=== PATIENT | male | born 1945 | race Caucasian/White ===

== ENCOUNTER 2022-11-04 11:45 | Inpatient (IN) ==
[2022-11-04] MEDS ORDERED: SODIUM CHLORIDE 0.9% 1000ML 1,000 ML IV ONE (12:17)
[2022-11-04 12:48] LABS: iSTAT Creatinine 4.6 mg/dl (0.6-1.3); iSTAT Hemoglobin 15.3 g/dl (14.0-18.0); iSTAT Ionized Calcium 0.95 mmol/l (1.12-1.32); iSTAT Potassium 5.3 mmol/L (3.3-5.0)
[2022-11-04 13:01] LABS: Hematocrit (blood only) 38.9 % (42.0-52.0); Hemoglobin 13.4 g/dl (14.0-18.0); Mean Corpuscular Hemoglobin 27.7 pg (25.0-34.0); Mean Corpuscular Hgb Conc 34.4 g/dL (32.0-36.0); Mean Corpuscular Volume 80.4 fL (80.0-100.0); Mean Platelet Volume 13.2 fL (9.4-12.4); Nucleated RBC # (auto) 0.02 K/uL (0-0.12); Nucleated RBC % (auto) 0.1 %; Platelet Count 211 K/uL (130-400); RDW Coefficient of Variation 24.5 % (11.5-14.5); RDW Standard Deviation 66.6 fL (36.4-46.3); Red Blood Count 4.84 M/uL (4.70-6.10)
--- NOTE | 2022-11-04 13:08 | XRay Report ---
XR chest 1V portable CLINICAL HISTORY: Chest pain, nonspecific TECHNIQUE: Single frontal radiograph of the chest was obtained. Comparison: Comparison is made to CT abdomen pelvis 11/04/2022 FINDINGS: Median sternotomy wires are unchanged. Calcified aortic knob is seen. Right hilar density is seen. Pr ominence of the pulmonary vasculature is noted. Small bilateral pleural effusions are seen. IMPRESSION: 1. Right hilar density may represent mediastinal lymph nodes or airspace opacity. 2. Mild pulmonary edema. 3. Small bilateral pleural effusions. ACT 112: Negative or not required by law. Electronically signed by: Reid Cadena M.D. 11/04/2022 1:07 PM
--- NOTE | 2022-11-04 13:11 | Emergency Department Note ---
Impression & Plan Acute renal failure, Hypoalbuminemia, Hypotension, Complicated urinary tract infection, Elevated troponin level, Liver mass, Suspected malignant neoplasm ED Provider Note NAME: SEEMA CLINE AGE: 77 SEX: M ARRIVES VIA: Walk-In INFORMANT: Patient ED PROVIDER(S): Javi Beckford MD CHIEF COMPLAINT: Weakness, referred PLAN: Disposition: Admit MEDICAL DECISION MAKING: The patient is a pleasant 77-year-old gentleman with a past medical history of CHF, hypertension, diabetes, CKD who presents to the emergency department via walk-in accompanied by his son referred by his PCP office for evaluation of generalized weakness with poor oral intake over the past week in the setting of being admitted to [facility] for 10 days and discharged on 10/17 following acute renal failure with creatinine worsening to 3 complicated by atrial fibrillation with RVR with 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 The patient's son describes that during his evaluation a kidney and liver lesion were seen and it was recommended that this be further evaluated by urology and that a biopsy be obtained. They report they were referred to [facility] urology who they saw on Tuesday they are not sure of the plan as they did not have records of the patient's hospitalization at the time. They also scheduled to see oncology but have yet to be seen. They report they wanted to come to [facility] this time because they are going to establish care and follow-up with urology and oncology. They deny any fevers, cough, congestion, chest pain or shortness of breath. The patient does have edema of his legs which the son reports is chronic and not worse and not better. They report that their understanding of the patient's hospitalization was that he was dehydrated and are unaware of any of the additional details. On arrival emergency department the patient is ill appearing, afebrile with heart rate in the 40s and blood pressure 70s/50s improving to the 90s-100s/50s-60s. The patient does exhibit third spacing with anasarca and 2+ pitting edema bilateral lower extremities. EKG demonstrates sinus bradycardia without high-grade block or overt ST elevation or depression. Chest x-ray with suggestion of pulmonary edema and bilateral pleural effusion better characterized on CT imaging. WBC 15.6K with neutrophil predominance without left shift. Hemoglobin and platelets within normal limits. Creatinine 1.4 in the setting of being on Xare lto. Chemistry with acute renal failure with creatinine of 4 and BUN of 140. BUNs/creatinine> 30 suggestive of prerenal etiology. Bicarbonate 20 with anion gap of 14. Initial lactic acid 3.1, with repeat following cautious IV fluid hydration improved to 2.8. Transaminitis is present with AST and ALT 208 and 80, respectively with alkaline phosphatase 359 and total bilirubin 5.6. Albumin is notably low at 2.3. Lipase is not elevated. High-sensitivity troponin initially 116, nonspecific with repeat downtrending to 100. Procalcitonin is elevated at 1.86. TSH elevated at 14 however free T4 within normal limits. UA is suspicious for infection with positive nitrites, and 1+ bacteria albeit with epithelial cells present. CT of the head negative for acute abnormality with note of cerebellar hypodensity likely reflecting known previous CVA. CT of the chest demonstrates moderate bilateral pleural effusions with associated atelectasis as well as a right 10mm cardiophrenic lymph node and 4 mm nodule in the right upper lung. CT of the abdomen pelvis demonstrates thickening of the cecum and ascending colon which is nonspecific. Moderate pleural effusions are additionally characterized and note is made of small amount of ascites and moderate body wall edema. 4.5 cm soft tissue mass/lymphadenopathy centered at the celiac axis in addition to associated retroperitoneal lymphadenopathy and 10 cm heterogenous mass within the left hepatic lobe that likely represents metastatic disease and is similar to comparison study from outside hospital on 10/14. Patient was treated with empiric cefepime given leukocytosis, procalcitonin elevation and suspicion for UTI. Intravascular depletion is suspected however IV fluid hydration was administered cautiously given the patient's acute renal failure and third spacing. Subsequently, blood pressure was stable with MAPS > 65 and patient m entating normally with urine output and Lamar catheter. Case was discussed with Dr. Larson, [facility] hospitalist, who evaluated the patient for admission. Further management per admitting team. Triage Nursing notes reviewed and agree them. Prior/outside medical records reviewed including KATHY Gonzalez discharge summary and PCP hospitalization follow-up visit. Vital Signs: reviewed Differential diagnosis: Infection, dehydration, metabolic abnormality, hypo/hyperglycemia, electrolyte disturbance, anemia, hypoxia, cardiac sources, intracerebral event, toxicologic, neurologic, as well as other pathologies. ER treatment provided: See below. Diagnostics interpreted by me: ECG: Sinus bradycardia, 47 bpm, no ectopy, no overt ST elevation or depression, QTc 523, QRS 92. Cardiac Monitoring: An order for continuous cardiac monitoring was placed and demonstrated Sinus bradycardia, 47 bpm, no ectopy. Laboratory studies: See below Imaging studies: See below Consultation(s): Case was discussed with Dr. Larson, [facility] hospitalist, who will evaluate the patient for admission. 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 The patient's son describes that during his evaluation a kidney and liver lesion were seen and it was recommended that this be further evaluated by urology and that a biopsy be obtained. They report they were referred to [facility] urology who they saw on Tuesday they are not sure of the plan as they did not have records of the patient's hospitalization at the time. They also scheduled to see oncology but have yet to be seen. They report they wanted to come to [facility] this time because they are going to establish care and follow-up with urology and oncology. They deny any fevers, cough, congestion, chest pain or shortness of breath. The patient does have edema of his legs which the son reports is chronic and not worse and not better. They report that their understanding of the patient's hospitalization was that he was dehydrated and are unaware of any of the additional details. ROS: See above HPI for pertinent positives & negatives. A total of 10 systems reviewed and were otherwise negative. VITALS:See Below PHYSICAL EXAMINATION: GENERAL: Awake, alert, ill-appearing, in no distress HENT: Normocephalic, atraumatic. Oropharynx with dry mucous membranes and otherwise unremarkable. EYES: Normal conjunctiva. Sclera non-icteric. NECK: Supple. No nuchal rigidity. FROM. No JVD. RESPIRATORY: Diminished at bilateral lung bases and otherwise clear to auscultation. CARDIAC: Bradycardic rate, normal rhythm. Extremities warm and well perfused. Pulses equal. ABDOMEN: Soft, non-distended. No tenderness to palpation. No rebound or guarding. No masses. RECTAL: Deferred. MUSCULOSKELETAL: Chest examination reveals no tenderness. The back is symmetrical on inspection without obvious abnormality. There is no CVA tenderness to palpation. No joint edema. LOWER EXTREMITIES: Calves are equal size bilaterally and non-tender. Anasarca and 2+ pitting edema bilateral lower extremities. NEURO: Normal sensorium. No sensory or motor deficits noted. SKIN: No rash or jaundice noted. ED COURSE: Critical Care: I have personally spent greater than 75 minutes of critical care time in the direct management of this patient. This includes bedside care, interpretation of diagnostic studies, and testing, discussion with consultants, patient, and family members, and other required patient management activities. This 75 minutes is in excess of all separately billable procedures. Javi Beckford MD Past Med/Surg History Medical History (Updated 11/04/22 @ 21:59 by Javi Beckford MD) Acute renal failure Afib Carpal tunnel syndrome Chronic back pain Diabetes Elevated liver enzymes Heart attack Heart failure High cholesterol Hypertension Hypothyroidism Liver lesion LORETO (obstructive sleep apnea) Pleural cavity effusion Renal mass of unknown nature Shock Surgical History Total knee replacement status Family History Other Heart disease Social History Smoking Status: Former smoker Second Hand Exposure: No; Do You Dip or Chew Tobacco: No; Hx Alcohol Use: No Hx Substance Use: No Preferred Language: Divehi Communication Ability: Effective Radiator Cleaner Required: No Beliefs That Will Affect Care: None marital status: Current Living Situation: Spouse current occupational status: retired Other Information That Helps Us Care for You: No Feels Safe at Home: Yes Safety Concerns: Feels Safe At This Time Assistive Devices: Cane, CPAP and Walker Allergies Allergies Allergy/AdvReac Type Severity Reaction Status Date / Time No Known Allergies Allergy Verified 11/01/22 14:16 Home Meds Home Medications Medication Instructions Recorded Confirmed amlodipine 10 mg tablet 10 mg PO DAILY 11/01/22 11/04/22 aspirin 81 mg tablet,delayed 81 mg PO DAILY 11/01/22 11/04/22 release (Adult Aspirin Regimen) furosemide 40 mg tablet 40 mg PO DAILY PRN swelling/wt gain 11/01/22 11/04/22 gabapentin 100 mg capsule 100 mg PO DAILY 11/01/22 11/04/22 insulin glargine 100 unit/mL (3 20 unit subcut QDB 11/01/22 11/04/22 mL) subcutaneous pen levothyroxine 25 mcg capsule 25 mcg PO DAILYBB 11/01/22 11/04/22 rivaroxaban 15 mg tablet (Xarelto) 15 mg PO QPM 11/01/22 11/04/22 tramadol 50 mg tablet 50 mg PO Q8 PRN arthritic pain 11/01/22 11/04/22 atorvastatin 40 mg tablet 40 mg PO HS 11/04/22 11/04/22 clonidine HCl 0.3 mg tablet 0.3 mg PO Q8 PRN SBP 160 & > 11/04/22 11/04/22 gabapentin 300 mg capsule 300 - 600 mg PO HS 11/04/22 11/04/22 glipizide 10 mg tablet 10 mg PO QID 11/04/22 11/04/22 insulin aspart U-100 100 unit/mL See Rx Instructions .Route .COMPLEX 11/04/22 11/04/22 (3 mL) subcutaneous pen (Novolog FlexPen U-100 Insulin aspart) losartan 100 mg tablet 100 mg PO DAILY 11/04/22 11/04/22 metoprolol tartrate 50 mg tablet 100 mg PO BID 11/04/22 11/04/22 Results & Data (ED) Vital Signs Vital Signs - 24 hr 11/04/22 11:53 11/04/22 12:36 11/04/22 15:11 Temperature 36.6 C Temperature Source Temporal Artery Scan Pulse Rate 47 L 45 L Pulse Rate [Right Finger] 45 L Pulse Rhythm [Right Finger] Regular Pulse Strength [Right Finger] Normal Respiratory Rate 18 18 Respiratory Effort / Characteristics Non-Labored Spontaneous Non-Labored Respiratory Depth Normal Normal Respiratory Pattern Regular Regular Blood Pressure 79/52 L Blood Pressure [Right Arm] 99/55 L Blood Pressure Mean 61 Blood Pressure Mean [Right Arm] 69 Blood Pressure Position [Right Arm] Lying Pulse Oximetry 98 95 Oxygen Delivery Method Room Air Nasal Cannula Oxygen Flow Rate 2 Sepsis Recent Fever Within 48 Hours No Sepsis New/Unexplained Change in Mental Status No Sepsis Action Taken by Nursing No Action Required 11/04/22 15:13 11/04/22 15:36 11/04/22 16:55 Temperature Temperature Source Pulse Rate 44 L Pulse Rate [Right Finger] 48 L 45 L Pulse Rhythm [Right Finger] Regular Regular Pulse Strength [Right Finger] Normal Normal Respiratory Rate 18 18 Respiratory Effort / Characteristics Non-Labored Non-Labored Respiratory Depth Normal Normal Respiratory Pattern Regular Regular Blood Pressure Blood Pressure [Right Arm] 95/55 L 89/48 L Blood Pressure Mean Blood Pressure Mean [Right Arm] 68 61 Blood Pressure Position [Right Arm] Lying Lying Pulse Oximetry 95 99 Oxygen Delivery Method Nasal Cannula Nasal Cannula Oxygen Flow Rate 2 2 Sepsis Recent Fever Within 48 Hours Sepsis New/Unexplained Change in Mental Status Sepsis Action Taken by Nursing 11/04/22 17:13 11/04/22 17:44 Temperature Temperature Source Pulse Rate Pulse Rate [Right Finger] 68 46 L Pulse Rhythm [Right Finger] Regular Regular Pulse Strength [Right Finger] Normal Normal Respiratory Rate 16 16 Respiratory Effort / Characteristics Non-Labored Non-Labored Respiratory Depth Normal Normal Respiratory Pattern Regular Regular Blood Pressure Blood Pressure [Right Arm] 94/50 L Blood Pressure Mean Blood Pressure Mean [Right Arm] 64 Blood Pressure Position [Right Arm] Lying Pulse Oximetry 98 97 Oxygen Delivery Method Room Air Nasal Cannula Oxygen Flow Rate 2 Sepsis Recent Fever Within 48 Hours Sepsis New/Unexplained Change in Mental Status Sepsis Action Taken by Nursing Laboratory Data Attestation: I reviewed the patient's lab results. 11/04/22 12:25 11/04/22 12:25 Lab Results 11/04/22 11/04/22 11/04/22 Range/Units 12:25 12:25 12:25 WBC 15.60 H (4.8-10.8) K/ul RBC 4.84 (4.70-6.10) M/uL Hgb 13.4 L (14.0-18.0) g/dl POC Hgb (14.0-18.0) g/dl Hct 38.9 L (42.0-52.0) % POC Hct (42-52) % MCV 80.4 (80.0-100.0) fL MCH 27.7 (25.0-34.0) pg MCHC 34.4 (32.0-36.0) g/dL RDW Std Deviation 66.6 H (36.4-46.3) fL RDW Coeff of Celina 24.5 H (11.5-14.5) % Plt Count 211 (130-400) K/uL MPV 13.2 H (9.4-12.4) fL Immature Gran % (Auto) 0.8 % Neut % (Auto) 68.4 % Lymph % (Auto) 13.2 % Sharp % (Auto) 12.1 % Eos % (Auto) 5.1 % Baso % (Auto) 0.4 % Neut # (Auto) 10.65 H (1.40-6.50) K/uL Lymph # (Auto) 2.06 (1.2-3.4) K/uL Sharp # (Auto) 1.89 H (0.11-0.59) K/uL Eos # (Auto) 0.80 H (0-0.50) K/uL Baso # (Auto) 0.07 (0-0.2) K/uL Immature Gran # (Auto) 0.13 (0.01-0.20) K/uL Absolute Nucleated RBC 0.02 (0-0.12) K/uL Nucleated RBC % (auto) 0.1 % Polychromasia 2+ Target Cells 1+ Tear Drop Cells 1+ PT (9.0-12.0) Seconds INR (0.9-1.1) APTT (21.0-31.0) Seconds PTT Ratio ABG pH (7.35-7.45) ABG pCO2 (35-46) mmHg ABG pO2 (80-95) mmHg ABG HCO3 (19-24) mmol/L ABG O2 Saturation (90-95) % ABG Base Excess (-9-1.8) mEq/L [place] Test (Pos) Oxygen Given POC Sodium (135-144) mmol/L Sodium 137 (136-145) mmol/L POC Potassium (3.3-5.0) mmol/L Potassium 5.3 H (3.5-5.1) mmol/L POC Chloride (101-112) mmol/L Chloride 103 (98-107) mmol/L Carbon Dioxide 20 L (21-32) mmol/L POC Total CO2 (24-31) mmol/L Anion Gap 14 H (3-11) POC Anion Gap (16-25) mmol/L POC BUN (7-18) mg/dl BUN 140 H (6-23) mg/dl Creatinine 4.07 H (0.6-1.4) mg/dl POC Creatinine (0.6-1.3) mg/dl Est Cr Clr Drug Dosing Not Reportable Est GFR ( Amer) 15.6 ml/min Est GFR (Non-Af Amer) 13.4 ml/min BUN/Creatinine Ratio 34.4 H (10-20) Glucose 94 (70-99(Fasting)) mg/dl POC Glucose (other) (70-99) mg/dl Lactate (0.4-2.0) mmol/L Calcium 8.3 L (8.6-10.3) mg/dl POC Ioniz Calcium Viky (1.12-1.32) mmol/l Phosphorus 7.2 H (2.5-4.9) mg/dl Magnesium 2.7 H (1.7-2.4) mg/dl Total Bilirubin 5.6 H (0.2-1.0) mg/dl Direct Bilirubin AST 208 H (13-39) U/L ALT 80 H (7-52) U/L Alkaline Phosphatase 359 H (34-104) U/L Troponin I High Sens 116.0 H* (0-20) pg/ml B-Natriuretic Peptide (0-100) pg/ml Total Protein 6.6 (6.0-8.3) gm/dl Albumin 2.3 L (3.4-5.0) gm/dl Globulin 4.3 H (2.5-4.0) gm/dl Albumin/Globulin Ratio 0.5 L (0.9-2) Lipase 9 L (11-82) U/L Procalcitonin (0-0.5) ng/ml TSH 14.014 H (0.300-4.500) uIu/ml Free T4 0.90 (0.61-1.60) ng/dl Urine Color Urine Appearance (Clear) Urine pH (4.5-7.5) Ur Specific [place] (1.000-1.030) Urine Protein (Negative) Urine Glucose (UA) (Negative) Urine Ketones (Negative) Urine Blood (Negative) Urine Nitrite (Negative) Urine Bilirubin (Negative) Urine Urobilinogen (Negative) Ur Leukocyte Esterase (Negative) Urine WBC (Auto) (0-5) /hpf Urine RBC (Auto) (0-4) /hpf U Hyaline Cast (Auto) (0-5) /lpf U Epithel Cells (Auto) (0-5) /lpf Urine Bacteria (Auto) (Negative) Ur Random Creatinine mg/dl Ur Random Sodium mmol/L Nasal Screen MRSA (PCR) (Negative) 11/04/22 11/04/22 11/04/22 Range/Units 12:25 12:25 12:25 WBC (4.8-10.8) K/ul RBC (4.70-6.10) M/uL Hgb (14.0-18.0) g/dl POC Hgb (14.0-18.0) g/dl Hct (42.0-52.0) % POC Hct (42-52) % MCV (80.0-100.0) fL MCH (25.0-34.0) pg MCHC (32.0-36.0) g/dL RDW Std Deviation (36.4-46.3) fL RDW Coeff of Celina (11.5-14.5) % Plt Count (130-400) K/uL MPV (9.4-12.4) fL Immature Gran % (Auto) % Neut % (Auto) % Lymph % (Auto) % Sharp % (Auto) % Eos % (Auto) % Baso % (Auto) % Neut # (Auto) (1.40-6.50) K/uL Lymph # (Auto) (1.2-3.4) K/uL Sharp # (Auto) (0.11-0.59) K/uL Eos # (Auto) (0-0.50) K/uL Baso # (Auto) (0-0.2) K/uL Immature Gran # (Auto) (0.01-0.20) K/uL Absolute Nucleated RBC (0-0.12) K/uL Nucleated RBC % (auto) % Polychromasia Target Cells Tear Drop Cells PT 15.4 H (9.0-12.0) Seconds INR 1.4 H (0.9-1.1) APTT 40.2 H* (21.0-31.0) Seconds PTT Ratio 1.4 ABG pH (7.35-7.45) ABG pCO2 (35-46) mmHg ABG pO2 (80-95) mmHg ABG HCO3 (19-24) mmol/L ABG O2 Saturation (90-95) % ABG Base Excess (-9-1.8) mEq/L [place] Test (Pos) Oxygen Given POC Sodium (135-144) mmol/L Sodium (136-145) mmol/L POC Potassium (3.3-5.0) mmol/L Potassium (3.5-5.1) mmol/L POC Chloride (101-112) mmol/L Chloride (98-107) mmol/L Carbon Dioxide (21-32) mmol/L POC Total CO2 (24-31) mmol/L Anion Gap (3-11) POC Anion Gap (16-25) mmol/L POC BUN (7-18) mg/dl BUN (6-23) mg/dl Creatinine (0.6-1.4) mg/dl POC Creatinine (0.6-1.3) mg/dl Est Cr Clr Drug Dosing Est GFR ( Amer) ml/min Est GFR (Non-Af Amer) ml/min BUN/Creatinine Ratio (10-20) Glucose (70-99(Fasting)) mg/dl POC Glucose (other) (70-99) mg/dl Lactate (0.4-2.0) mmol/L Calcium (8.6-10.3) mg/dl POC Ioniz Calcium Viky (1.12-1.32) mmol/l Phosphorus (2.5-4.9) mg/dl Magnesium (1.7-2.4) mg/dl Total Bilirubin (0.2-1.0) mg/dl Direct Bilirubin AST (13-39) U/L ALT (7-52) U/L Alkaline Phosphatase (34-104) U/L Troponin I High Sens (0-20) pg/ml B-Natriuretic Peptide (0-100) pg/ml Total Protein (6.0-8.3) gm/dl Albumin (3.4-5.0) gm/dl Globulin (2.5-4.0) gm/dl Albumin/Globulin Ratio (0.9-2) Lipase (11-82) U/L Procalcitonin 1.86 H (0-0.5) ng/ml TSH (0.300-4.500) uIu/ml Free T4 (0.61-1.60) ng/dl Urine Color Urine Appearance (Clear) Urine pH (4.5-7.5) Ur Specific [place] (1.000-1.030) Urine Protein (Negative) Urine Glucose (UA) (Negative) Urine Ketones (Negative) Urine Blood (Negative) Urine Nitrite (Negative) Urine Bilirubin (Negative) Urine Urobilinogen (Negative) Ur Leukocyte Esterase (Negative) Urine WBC (Auto) (0-5) /hpf Urine RBC (Auto) (0-4) /hpf U Hyaline Cast (Auto) (0-5) /lpf U Epithel Cells (Auto) (0-5) /lpf Urine Bacteria (Auto) (Negative) Ur Random Creatinine mg/dl Ur Random Sodium mmol/L Nasal Screen MRSA (PCR) (Negative) 11/04/22 11/04/22 11/04/22 Range/Units 12:35 13:11 13:53 WBC (4.8-10.8) K/ul RBC (4.70-6.10) M/uL Hgb (14.0-18.0) g/dl POC Hgb 15.3 (14.0-18.0) g/dl Hct (42.0-52.0) % POC Hct 45 (42-52) % MCV (80.0-100.0) fL MCH (25.0-34.0) pg MCHC (32.0-36.0) g/dL RDW Std Deviation (36.4-46.3) fL RDW Coeff of Celina (11.5-14.5) % Plt Count (130-400) K/uL MPV (9.4-12.4) fL Immature Gran % (Auto) % Neut % (Auto) % Lymph % (Auto) % Sharp % (Auto) % Eos % (Auto) % Baso % (Auto) % Neut # (Auto) (1.40-6.50) K/uL Lymph # (Auto) (1.2-3.4) K/uL Sharp # (Auto) (0.11-0.59) K/uL Eos # (Auto) (0-0.50) K/uL Baso # (Auto) (0-0.2) K/uL Immature Gran # (Auto) (0.01-0.20) K/uL Absolute Nucleated RBC (0-0.12) K/uL Nucleated RBC % (auto) % Polychromasia Target Cells Tear Drop Cells PT (9.0-12.0) Seconds INR (0.9-1.1) APTT (21.0-31.0) Seconds PTT Ratio ABG pH (7.35-7.45) ABG pCO2 (35-46) mmHg ABG pO2 (80-95) mmHg ABG HCO3 (19-24) mmol/L ABG O2 Saturation (90-95) % ABG Base Excess (-9-1.8) mEq/L [place] Test (Pos) Oxygen Given POC Sodium 138 (135-144) mmol/L Sodium (136-145) mmol/L POC Potassium 5.3 H (3.3-5.0) mmol/L Potassium (3.5-5.1) mmol/L POC Chloride 108 (101-112) mmol/L Chloride (98-107) mmol/L Carbon Dioxide (21-32) mmol/L POC Total CO2 19 L (24-31) mmol/L Anion Gap (3-11) POC Anion Gap 18.0 (16-25) mmol/L POC BUN 117 H* (7-18) mg/dl BUN (6-23) mg/dl Creatinine (0.6-1.4) mg/dl POC Creatinine 4.6 H* (0.6-1.3) mg/dl Est Cr Clr Drug Dosing Est GFR ( Amer) ml/min Est GFR (Non-Af Amer) ml/min BUN/Creatinine Ratio (10-20) Glucose (70-99(Fasting)) mg/dl POC Glucose (other) 96 (70-99) mg/dl Lactate (0.4-2.0) mmol/L Calcium (8.6-10.3) mg/dl POC Ioniz Calcium Viky 0.95 L (1.12-1.32) mmol/l Phosphorus (2.5-4.9) mg/dl Magnesium (1.7-2.4) mg/dl Total Bilirubin (0.2-1.0) mg/dl Direct Bilirubin AST (13-39) U/L ALT (7-52) U/L Alkaline Phosphatase (34-104) U/L Troponin I High Sens (0-20) pg/ml B-Natriuretic Peptide (0-100) pg/ml Total Protein (6.0-8.3) gm/dl Albumin (3.4-5.0) gm/dl Globulin (2.5-4.0) gm/dl Albumin/Globulin Ratio (0.9-2) Lipase (11-82) U/L Procalcitonin (0-0.5) ng/ml TSH (0.300-4.500) uIu/ml Free T4 (0.61-1.60) ng/dl Urine Color Dark Yellow Urine Appearance Clear (Clear) Urine pH 5.0 (4.5-7.5) Ur Specific [place] 1.016 (1.000-1.030) Urine Protein Trace H (Negative) Urine Glucose (UA) Negative (Negative) Urine Ketones Negative (Negative) Urine Blood 1+ H (Negative) Urine Nitrite Positive A (Negative) Urine Bilirubin 1+ H (Negative) Urine Urobilinogen Negative (Negative) Ur Leukocyte Esterase Trace H (Negative) Urine WBC (Auto) 1-5 (0-5) /hpf Urine RBC (Auto) 10-30 H (0-4) /hpf U Hyaline Cast (Auto) 1-5 (0-5) /lpf U Epithel Cells (Auto) 20-30 H (0-5) /lpf Urine Bacteria (Auto) 1+ H (Negative) Ur Random Creatinine 119.6 mg/dl Ur Random Sodium 14 mmol/L Nasal Screen MRSA (PCR) (Negative) 11/04/22 11/04/22 11/04/22 Range/Units 14:19 14:19 15:23 WBC (4.8-10.8) K/ul RBC (4.70-6.10) M/uL Hgb (14.0-18.0) g/dl POC Hgb (14.0-18.0) g/dl Hct (42.0-52.0) % POC Hct (42-52) % MCV (80.0-100.0) fL MCH (25.0-34.0) pg MCHC (32.0-36.0) g/dL RDW Std Deviation (36.4-46.3) fL RDW Coeff of Celina (11.5-14.5) % Plt Count (130-400) K/uL MPV (9.4-12.4) fL Immature Gran % (Auto) % Neut % (Auto) % Lymph % (Auto) % Sharp % (Auto) % Eos % (Auto) % Baso % (Auto) % Neut # (Auto) (1.40-6.50) K/uL Lymph # (Auto) (1.2-3.4) K/uL Sharp # (Auto) (0.11-0.59) K/uL Eos # (Auto) (0-0.50) K/uL Baso # (Auto) (0-0.2) K/uL Immature Gran # (Auto) (0.01-0.20) K/uL Absolute Nucleated RBC (0-0.12) K/uL Nucleated RBC % (auto) % Polychromasia Target Cells Tear Drop Cells PT (9.0-12.0) Seconds INR (0.9-1.1) APTT (21.0-31.0) Seconds PTT Ratio ABG pH (7.35-7.45) ABG pCO2 (35-46) mmHg ABG pO2 (80-95) mmHg ABG HCO3 (19-24) mmol/L ABG O2 Saturation (90-95) % ABG Base Excess (-9-1.8) mEq/L [place] Test (Pos) Oxygen Given POC Sodium (135-144) mmol/L Sodium (136-145) mmol/L POC Potassium (3.3-5.0) mmol/L Potassium (3.5-5.1) mmol/L POC Chloride (101-112) mmol/L Chloride (98-107) mmol/L Carbon Dioxide (21-32) mmol/L POC Total CO2 (24-31) mmol/L Anion Gap (3-11) POC Anion Gap (16-25) mmol/L POC BUN (7-18) mg/dl BUN (6-23) mg/dl Creatinine (0.6-1.4) mg/dl POC Creatinine (0.6-1.3) mg/dl Est Cr Clr Drug Dosing Est GFR ( Amer) ml/min Est GFR (Non-Af Amer) ml/min BUN/Creatinine Ratio (10-20) Glucose (70-99(Fasting)) mg/dl POC Glucose (other) (70-99) mg/dl Lactate 3.1 H* (0.4-2.0) mmol/L Calcium (8.6-10.3) mg/dl POC Ioniz Calcium Viky (1.12-1.32) mmol/l Phosphorus (2.5-4.9) mg/dl Magnesium (1.7-2.4) mg/dl Total Bilirubin (0.2-1.0) mg/dl Direct Bilirubin Cancelled AST (13-39) U/L ALT (7-52) U/L Alkaline Phosphatase (34-104) U/L Troponin I High Sens (0-20) pg/ml B-Natriuretic Peptide 694 H (0-100) pg/ml Total Protein (6.0-8.3) gm/dl Albumin (3.4-5.0) gm/dl Globulin (2.5-4.0) gm/dl Albumin/Globulin Ratio (0.9-2) Lipase (11-82) U/L Procalcitonin (0-0.5) ng/ml TSH (0.300-4.500) uIu/ml Free T4 (0.61-1.60) ng/dl Urine Color Urine Appearance (Clear) Urine pH (4.5-7.5) Ur Specific [place] (1.000-1.030) Urine Protein (Negative) Urine Glucose (UA) (Negative) Urine Ketones (Negative) Urine Blood (Negative) Urine Nitrite (Negative) Urine Bilirubin (Negative) Urine Urobilinogen (Negative) Ur Leukocyte Esterase (Negative) Urine WBC (Auto) (0-5) /hpf Urine RBC (Auto) (0-4) /hpf U Hyaline Cast (Auto) (0-5) /lpf U Epithel Cells (Auto) (0-5) /lpf Urine Bacteria (Auto) (Negative) Ur Random Creatinine mg/dl Ur Random Sodium mmol/L Nasal Screen MRSA (PCR) (Negative) 11/04/22 11/04/22 11/04/22 Range/Units 15:23 16:30 16:30 WBC (4.8-10.8) K/ul RBC (4.70-6.10) M/uL Hgb (14.0-18.0) g/dl POC Hgb (14.0-18.0) g/dl Hct (42.0-52.0) % POC Hct (42-52) % MCV (80.0-100.0) fL MCH (25.0-34.0) pg MCHC (32.0-36.0) g/dL RDW Std Deviation (36.4-46.3) fL RDW Coeff of Celina (11.5-14.5) % Plt Count (130-400) K/uL MPV (9.4-12.4) fL Immature Gran % (Auto) % Neut % (Auto) % Lymph % (Auto) % Sharp % (Auto) % Eos % (Auto) % Baso % (Auto) % Neut # (Auto) (1.40-6.50) K/uL Lymph # (Auto) (1.2-3.4) K/uL Sharp # (Auto) (0.11-0.59) K/uL Eos # (Auto) (0-0.50) K/uL Baso # (Auto) (0-0.2) K/uL Immature Gran # (Auto) (0.01-0.20) K/uL Absolute Nucleated RBC (0-0.12) K/uL Nucleated RBC % (auto) % Polychromasia Target Cells Tear Drop Cells PT (9.0-12.0) Seconds INR (0.9-1.1) APTT (21.0-31.0) Seconds PTT Ratio ABG pH (7.35-7.45) ABG pCO2 (35-46) mmHg ABG pO2 (80-95) mmHg ABG HCO3 (19-24) mmol/L ABG O2 Saturation (90-95) % ABG Base Excess (-9-1.8) mEq/L [place] Test (Pos) Oxygen Given POC Sodium (135-144) mmol/L Sodium (136-145) mmol/L POC Potassium (3.3-5.0) mmol/L Potassium (3.5-5.1) mmol/L POC Chloride (101-112) mmol/L Chloride (98-107) mmol/L Carbon Dioxide (21-32) mmol/L POC Total CO2 (24-31) mmol/L Anion Gap (3-11) POC Anion Gap (16-25) mmol/L POC BUN (7-18) mg/dl BUN (6-23) mg/dl Creatinine (0.6-1.4) mg/dl POC Creatinine (0.6-1.3) mg/dl Est Cr Clr Drug Dosing Est GFR ( Amer) ml/min Est GFR (Non-Af Amer) ml/min BUN/Creatinine Ratio (10-20) Glucose (70-99(Fasting)) mg/dl POC Glucose (other) (70-99) mg/dl Lactate 2.8 H* (0.4-2.0) mmol/L Calcium (8.6-10.3) mg/dl POC Ioniz Calcium Viky (1.12-1.32) mmol/l Phosphorus (2.5-4.9) mg/dl Magnesium (1.7-2.4) mg/dl Total Bilirubin (0.2-1.0) mg/dl Direct Bilirubin TNP AST (13-39) U/L ALT (7-52) U/L Alkaline Phosphatase (34-104) U/L Troponin I High Sens 102.8 H* (0-20) pg/ml B-Natriuretic Peptide (0-100) pg/ml Total Protein (6.0-8.3) gm/dl Albumin (3.4-5.0) gm/dl Globulin (2.5-4.0) gm/dl Albumin/Globulin Ratio (0.9-2) Lipase (11-82) U/L Procalcitonin (0-0.5) ng/ml TSH (0.300-4.500) uIu/ml Free T4 (0.61-1.60) ng/dl Urine Color Urine Appearance (Clear) Urine pH (4.5-7.5) Ur Specific [place] (1.000-1.030) Urine Protein (Negative) Urine Glucose (UA) (Negative) Urine Ketones (Negative) Urine Blood (Negative) Urine Nitrite (Negative) Urine Bilirubin (Negative) Urine Urobilinogen (Negative) Ur Leukocyte Esterase (Negative) Urine WBC (Auto) (0-5) /hpf Urine RBC (Auto) (0-4) /hpf U Hyaline Cast (Auto) (0-5) /lpf U Epithel Cells (Auto) (0-5) /lpf Urine Bacteria (Auto) (Negative) Ur Random Creatinine mg/dl Ur Random Sodium mmol/L Nasal Screen MRSA (PCR) Negative (Negative) 11/04/22 11/04/22 Range/Units 17:05 17:43 WBC (4.8-10.8) K/ul RBC (4.70-6.10) M/uL Hgb (14.0-18.0) g/dl POC Hgb (14.0-18.0) g/dl Hct (42.0-52.0) % POC Hct (42-52) % MCV (80.0-100.0) fL MCH (25.0-34.0) pg MCHC (32.0-36.0) g/dL RDW Std Deviation (36.4-46.3) fL RDW Coeff of Celina (11.5-14.5) % Plt Count (130-400) K/uL MPV (9.4-12.4) fL Immature Gran % (Auto) % Neut % (Auto) % Lymph % (Auto) % Sharp % (Auto) % Eos % (Auto) % Baso % (Auto) % Neut # (Auto) (1.40-6.50) K/uL Lymph # (Auto) (1.2-3.4) K/uL Sharp # (Auto) (0.11-0.59) K/uL Eos # (Auto) (0-0.50) K/uL Baso # (Auto) (0-0.2) K/uL Immature Gran # (Auto) (0.01-0.20) K/uL Absolute Nucleated RBC (0-0.12) K/uL Nucleated RBC % (auto) % Polychromasia Target Cells Tear Drop Cells PT (9.0-12.0) Seconds INR (0.9-1.1) APTT (21.0-31.0) Seconds PTT Ratio ABG pH 7.29 L (7.35-7.45) ABG pCO2 34 L (35-46) mmHg ABG pO2 125 H (80-95) mmHg ABG HCO3 16 L (19-24) mmol/L ABG O2 Saturation 99.9 H (90-95) % ABG Base Excess -9.3 L (-9-1.8) mEq/L [place] Test Pos (Pos) Oxygen Given 2 POC Sodium (135-144) mmol/L Sodium (136-145) mmol/L POC Potassium (3.3-5.0) mmol/L Potassium (3.5-5.1) mmol/L POC Chloride (101-112) mmol/L Chloride (98-107) mmol/L Carbon Dioxide (21-32) mmol/L POC Total CO2 (24-31) mmol/L Anion Gap (3-11) POC Anion Gap (16-25) mmol/L POC BUN (7-18) mg/dl BUN (6-23) mg/dl Creatinine (0.6-1.4) mg/dl POC Creatinine (0.6-1.3) mg/dl Est Cr Clr Drug Dosing Est GFR ( Amer) ml/min Est GFR (Non-Af Amer) ml/min BUN/Creatinine Ratio (10-20) Glucose (70-99(Fasting)) mg/dl POC Glucose (other) (70-99) mg/dl Lactate (0.4-2.0) mmol/L Calcium (8.6-10.3) mg/dl POC Ioniz Calcium Viky (1.12-1.32) mmol/l Phosphorus (2.5-4.9) mg/dl Magnesium (1.7-2.4) mg/dl Total Bilirubin (0.2-1.0) mg/dl Direct Bilirubin 2.9 H AST (13-39) U/L ALT (7-52) U/L Alkaline Phosphatase (34-104) U/L Troponin I High Sens (0-20) pg/ml B-Natriuretic Peptide (0-100) pg/ml Total Protein (6.0-8.3) gm/dl Albumin (3.4-5.0) gm/dl Globulin (2.5-4.0) gm/dl Albumin/Globulin Ratio (0.9-2) Lipase (11-82) U/L Procalcitonin (0-0.5) ng/ml TSH (0.300-4.500) uIu/ml Free T4 (0.61-1.60) ng/dl Urine Color Urine Appearance (Clear) Urine pH (4.5-7.5) Ur Specific [place] (1.000-1.030) Urine Protein (Negative) Urine Glucose (UA) (Negative) Urine Ketones (Negative) Urine Blood (Negative) Urine Nitrite (Negative) Urine Bilirubin (Negative) Urine Urobilinogen (Negative) Ur Leukocyte Esterase (Negative) Urine WBC (Auto) (0-5) /hpf Urine RBC (Auto) (0-4) /hpf U Hyaline Cast (Auto) (0-5) /lpf U Epithel Cells (Auto) (0-5) /lpf Urine Bacteria (Auto) (Negative) Ur Random Creatinine mg/dl Ur Random Sodium mmol/L Nasal Screen MRSA (PCR) (Negative) Administered Medications Sodium Bicarbonate 150 meq/ (Sterile Water) 1,150 mls @ 80 mls/hr IV .[id number] ONE Stop: 11/05/22 08:52 Last Admin: 11/04/22 19:27 Dose: 80 mls/hr Documented By: CIERRA Heparin Sodium/Dextrose (Heparin Sodium/Dextrose) 25,000 units in 500 mls @ 29 mls/hr IV .[id number] SUSAN; Protocol Stop: 12/04/22 18:29 Last Admin: 11/04/22 20:55 Dose: 1,450 units/hr, 29 mls/hr Documented By: MANNY Co-signed By: AMB Discontinued Medications Heparin Sodium/Dextrose (Heparin Iv Adult Wt-Based Standard *No* Bolus Protocol) 1 each IV ONE STA; Protocol Stop: 11/04/22 18:04 Last Admin: 11/04/22 18:36 Dose: Not Given Documented By: IGNACIA Sodium Chloride (Nss 1000ml) 1,000 mls @ 999 mls/hr IV .[id number] ONE Stop: 11/04/22 13:17 Last Infusion: 11/04/22 20:22 Dose: 0 mls/hr Documented By: Infusion: 11/04/22 13:48 Dose: 999 mls/hr Documented By: Infusion: 11/04/22 13:18 Dose: 999 mls/hr Documented By: Infusion: 11/04/22 13:13 Dose: 999 mls/hr Documented By: Admin: 11/04/22 12:50 Dose: 999 mls/hr Documented By: KERI Cefepime HCl (Maxipime) 2,000 mg in 20 mls @ 5 mls/min IV NOW STA; Protocol Stop: 11/04/22 14:02 Last Admin: 11/04/22 14:43 Dose: 5 mls/min Documented By: IGNACIA Albumin Human (Albumin 25%) 25 gm in 100 mls @ 50 mls/hr IV Q2H SUSAN Stop: 11/04/22 18:59 Last Infusion: 11/04/22 19:42 Dose: 0 mls/hr Documented By: Admin: 11/04/22 17:03 Dose: 50 mls/hr Documented By: Infusion: 11/04/22 17:03 Dose: 50 mls/hr Documented By: Admin: 11/04/22 15:27 Dose: 50 mls/hr Documented By: IGNACIA Parenteral Electrolytes (Plasma-Lyte A Ph 7.4) 1,000 mls @ 250 mls/hr IV .Q4H SUSAN Stop: 11/04/22 19:29 Last Admin: 11/04/22 19:41 Dose: Not Given Documented By: CIERRA Calcium Gluconate 2,000 mg/ (Dextrose) 70 mls @ 240 mls/hr IV TODAY@2014 ONE Stop: 11/04/22 20:32 Last Admin: 11/04/22 20:22 Dose: 240 mls/hr Documented By: [facility] Imaging Data Radiologist's Impression: Chest X-Ray 11/04/22 12:17 XR chest 1V portable CLINICAL HISTORY: Chest pain, nonspecific TECHNIQUE: Single frontal radiograph of the chest was obtained. Comparison: Comparison is made to CT abdomen pelvis 11/04/2022 FINDINGS: Median sternotomy wires are unchanged. Calcified aortic knob is seen. Right hilar density is seen. Prominence of the pulmonary vasculature is noted. Small bilateral pleural effusions are seen. IMPRESSION: 1. Right hilar density may represent mediastinal lymph nodes or airspace opacity. 2. Mild pulmonary edema. 3. Small bilateral pleural effusions. ACT 112: Negative or not required by law. Electronically signed by: Reid Cadena M.D. 11/04/2022 1:07 PM Abdomen/Pelvis CT 11/04/22 12:[address] WITHOUT CONTRAST CT DOSE: 2771.38 mGy.cm HISTORY: Shortness of breath, hypotensive, ?liver mets, ARF TECHNIQUE: Multiaxial CT images of the abdomen and pelvis were performed without contrast. A dose lowering technique was utilized adhering to the principles of ALARA. COMPARISON STUDY: Outside hospital abdomen and pelvis CT 10/14/2022. FINDINGS: Moderate bilateral pleural effusions and bibasilar densities persist. This is better appreciated on the same day chest CT. No pneumoperitoneum. No pneumatosis. There are poststernotomy changes. No acute fractures identified. The heart is mildly enlarged. There is a 9 mm anterior pericardial lymph node again noted. Small fat-containing umbilical hernia. There are small fat-containing bilateral inguinal hernias. Moderate body wall edema has progressed in the interval. Heterogeneity within the majority the left hepatic lobe measuring up to 10 cm in size. This is similar to the prior study and is consistent with a hepatic mass/metastatic disease. The unenhanced spleen and adrenal glands are unremarkable. No hydronephrosis. Stable left renal cyst. Irregular soft tissue mass/lymphadenopathy centered at the celiac axis again noted. This measures approximately 4.5 cm. Atrophic pancreas with multiple pancreatic calcifications again noted. Retroperitoneal lymphadenopathy persists. Calcified plaque in the normal caliber abdominal aorta. Mild mesenteric lymphadenopathy is also noted. Small amount of ascites, unchanged. The bladder is decompressed by a Lamar catheter. Thickening within the cecum and ascending colon. This is nonspecific but could be due to a portal colopathy or nonspecific colitis. No dilated loops of bowel to suggest an obstruction. Subtle nodular contour to the liver suggestive of cirrhosis. IMPRESSION: 1. Thickening within the cecum and ascending colon. This could be due to a portal colopathy or nonspecific colitis. 2. No evidence for a bowel obstruction. 3. Moderate pleural effusions, small amount of ascites,, and moderate body wall edema again noted. 4. Ill-defined 4.5 cm soft tissue mass/lymphadenopathy centered at the celiac axis. There is associated retroperitoneal lymphadenopathy and a 10 cm heterogeneous mass within the left hepatic lobe. This likely represents metastatic disease. This is similar to the prior study. 5. Additional findings as described above. ACT 112: Negative or not required by law. Electronically signed by: Tk Brian M.D. 11/04/2022 2:[address] 11/04/22 12:53 CT chest diagnostic wo con CLINICAL HISTORY: sob, hypotensive, ?liver mets, ARF TECHNIQUE: Multidetector row helical CT of the chest was performed. Coronal and sagittal reformations were obtained. Automated dose lowering techniques and/or adjustment according to patient size were utilized for this exam. Comparison: None available at the time of this dictation. FINDINGS: Lungs and pleura: Moderate bilateral pleural effusions are seen. There is a 4 mm nodule in the right upper lung. Atelectasis is noted. Heart and pericardium: Heart size is normal. No pericardial effusion. Vessels: The pulmonary trunk is enlarged measuring moderate atherosclerotic disease is seen. Mediastinum and len: 10 mm right cardiophrenic lymph node is seen. Chest wall and lower neck: Unremarkable. Abdomen: For findings below the diaphragm, please refer to CT of the abdomen dated the same. Bones: Degenerative changes in the thoracic spine. IMPRESSION: Moderate bilateral pleural effusions with associated atelectasis. There is a right cardiophrenic node as well as a 4 mm nodule in the right upper lung. ACT 112: Negative or not required by law. Electronically signed by: Reid Cadena M.D. 11/04/2022 2:[address] 11/04/22 12:54 CT head/brain wo con CLINICAL HISTORY: 77 years-old Male with ams. Acutely altered mental status TECHNIQUE: Multiple axial CT images of the head were obtained without contrast. A dose lowering technique was utilized adhering to the principles of ALARA. COMPARISON: None. FINDINGS: No acute intracranial hemorrhage, midline shift, intracranial mass, hydrocephalus, territorial ischemia or abnormal extra-axial collection. Involutional changes with white matter hypodensities suggestive of chronic microvascular ischemic disease. Indeterminate ill-defined 1.9 cm hypodense focus within the mid left cerebellum, image 6 series 2. The calvarium is intact. Small right parietal scalp contusion. The paranasal sinuses, mastoid air cells, and middle ear cavities are clear. IMPRESSION: 1. No acute intracranial hemorrhage, midline shift or acute territorial infarct. 2. Indeterminate 1.9 cm hypodense focus of the left cerebellum which may represent an age-indeterminate infarct. This could be correlated with follow-up MRI if there is further clinical concern. ACT 112: Negative or not required by law. The above report was generated using voice recognition software. It may contain grammatical, syntax or spelling errors. Electronically signed by: Rajesh Nascimento M.D. 11/04/2022 2:31 PM Discharge Plan Visit Data Chief Complaint: Weakness Stated Complaint: WEAKNESS, BACK PAIN ED Provider: Javi Beckford Discharge Problem: Acute renal failure, Hypoalbuminemia, Hypotension, Complicated urinary tract infection, Elevated troponin level, Liver mass, Suspected malignant neoplasm Patient Disposition: Admitted As Inpatient Discharge Instructions Interventions: ED Discharge Assessment Last Done: 11/04/22 19:54
[2022-11-04 13:20] LABS: INR 1.4 (0.9-1.1); Prothrombin Time 15.4 Seconds (9.0-12.0); Thyroid Stimulating Hormone 14.014 uIu/ml (0.300-4.500)
[2022-11-04 13:25] LABS: Basophils # (auto) 0.07 K/uL (0-0.2); Basophils % (auto) 0.4 %; Eosinophils % (auto) 5.1 %; Immature Granulocytes # (auto) 0.13 K/uL (0.01-0.20); Immature Granulocytes % (auto) 0.8 %; Lymphocytes # (auto) 2.06 K/uL (1.2-3.4); Lymphocytes % (auto) 13.2 %; Monocytes # (auto) 1.89 K/uL (0.11-0.59); Monocytes % (auto) 12.1 %; Neutrophils # (auto) 10.65 K/uL (1.40-6.50); Neutrophils % (auto) 68.4 %; Polychromasia 2+; Target Cells 1+; Tear Drop Cells 1+
[2022-11-04 13:27] LABS: Alanine Aminotransferase 80 U/L (7-52); Albumin Globulin Ratio 0.5 (0.9-2); Albumin Level 2.3 gm/dl (3.4-5.0); Alkaline Phosphatase 359 U/L (34-104); Anion Gap 14 (3-11); Aspartate Aminotransferase 208 U/L (13-39); BUN Creatinine Ratio 34.4 (10-20); Bilirubin,Total 5.6 mg/dl (0.2-1.0); Blood Urea Nitrogen 140 mg/dl (6-23); Calcium 8.3 mg/dl (8.6-10.3); Carbon Dioxide 20 mmol/L (21-32); Chloride 103 mmol/L (98-107); Est GFR (African American) 15.6 ml/min; Est GFR (Non-African American) 13.4 ml/min; Globulin 4.3 gm/dl (2.5-4.0); Glucose 94 mg/dl (70-99(Fasting)); Lipase 9 U/L (11-82); Magnesium 2.7 mg/dl (1.7-2.4); Phosphorus 7.2 mg/dl (2.5-4.9); Potassium 5.3 mmol/L (3.5-5.1); Sodium 137 mmol/L (136-145); Total Protein 6.6 gm/dl (6.0-8.3)
[2022-11-04 13:43] LABS: Appearance Urine Clear (Clear); Blood Urine 1+ (Negative); Color Urine Dark Yellow; Epithelial Cell Urine Auto 20-30 /lpf (0-5); Glucose Urine UA Negative (Negative); Ketones Urine Negative (Negative); Leukocyte Esterase Urine Trace (Negative); Nitrite Urine Positive (Negative); Protein Urine Trace (Negative); Specific Gravity Urine 1.016 (1.000-1.030); Urobilinogen Urine Negative (Negative)
[2022-11-04 13:44] LABS: Bilirubin Urine 1+ (Negative)
[2022-11-04 13:53] LABS: Bacteria Urine Automated 1+ (Negative)
[2022-11-04 13:56] LABS: T4 Free Thyroxine 0.9 ng/dl (0.61-1.60)
[2022-11-04] MEDS ORDERED: CEFEPIME 2,000 MG/20 ML VIAL IV STA (13:59)
--- NOTE | 2022-11-04 14:16 | CT Scan Report ---
ABDOMEN AND PELVIS CT WITHOUT CONTRAST CT DOSE: 2771.38 mGy.cm HISTORY: Shortness of breath, hypotensive, ?liver mets, ARF TECHNIQUE: Multiaxial CT images of the abdomen and pelvis were performed without contrast. A dose lo wering technique was utilized adhering to the principles of ALARA. COMPARISON STUDY: Outside hospital abdomen and pelvis CT 10/14/2022. FINDINGS: Moderate bilateral pleural effusions and bibasilar densities persist. This is better apprec iated on the same day chest CT. No pneumoperitoneum. No pneumatosis. There are poststernotomy changes . No acute fractures identified. The heart is mildly enlarged. There is a 9 mm anterior pericardial l ymph node again noted. Small fat-containing umbilical hernia. There are small fat-containing bilatera l inguinal hernias. Moderate body wall edema has progressed in the interval. Heterogeneity within the majority the left hepatic lobe measuring up to 10 cm in size. This is similar to the prior study and is consistent with a hepatic mass/metastatic disease. The unenhanced spleen and adrenal glands are u nremarkable. No hydronephrosis. Stable left renal cyst. Irregular soft tissue mass/lymphadenopathy ce ntered at the celiac axis again noted. This measures approximately 4.5 cm. Atrophic pancreas with mul tiple pancreatic calcifications again noted. Retroperitoneal lymphadenopathy persists. Calcified plaq ue in the normal caliber abdominal aorta. Mild mesenteric lymphadenopathy is also noted. Small amount of ascites, unchanged. The bladder is decompressed by a Lamar catheter. Thickening within the cecum and ascending colon. This is nonspecific but could be due to a portal colopathy or nonspecific coliti s. No dilated loops of bowel to suggest an obstruction. Subtle nodular contour to the liver suggestiv e of cirrhosis. IMPRESSION: 1. Thickening within the cecum and ascending colon. This could be due to a portal colopathy or nonspe cific colitis. 2. No evidence for a bowel obstruction. 3. Moderate pleural effusions, small amount of ascites,, and moderate body wall edema again noted. 4. Ill-defined 4.5 cm soft tissue mass/lymphadenopathy centered at the celiac axis. There is associat ed retroperitoneal lymphadenopathy and a 10 cm heterogeneous mass within the left hepatic lobe. This likely represents metastatic disease. This is similar to the prior study. 5. Additional findings as described above. ACT 112: Negative or not required by law. Electronically signed by: Tk Brian M.D. 11/04/2022 2:15 PM
--- NOTE | 2022-11-04 14:32 | CT Scan Report ---
CT head/brain wo con CLINICAL HISTORY: 77 years-old Male with ams. Acutely altered mental status TECHNIQUE: Multiple axial CT images of the head were obtained without contrast. A dose lowering tech nique was utilized adhering to the principles of ALARA. COMPARISON: None. FINDINGS: No acute intracranial hemorrhage, midline shift, intracranial mass, hydrocephalus, territorial ischem ia or abnormal extra-axial collection. Involutional changes with white matter hypodensities suggestiv e of chronic microvascular ischemic disease. Indeterminate ill-defined 1.9 cm hypodense focus within the mid left cerebellum, image 6 series 2. The calvarium is intact. Small right parietal scalp contusion. The paranasal sinuses, mastoid air bin ls, and middle ear cavities are clear. IMPRESSION: 1. No acute intracranial hemorrhage, midline shift or acute territorial infarct. 2. Indeterminate 1.9 cm hypodense focus of the left cerebellum which may represent an age-indetermina te infarct. This could be correlated with follow-up MRI if there is further clinical concern. ACT 112: Negative or not required by law. The above report was generated using voice recognition software. It may contain grammatical, syntax o r spelling errors. Electronically signed by: Rajesh Nascimento M.D. 11/04/2022 2:31 PM
--- NOTE | 2022-11-04 14:33 | CT Scan Report ---
CT chest diagnostic wo con CLINICAL HISTORY: sob, hypotensive, ?liver mets, ARF TECHNIQUE: Multidetector row helical CT of the chest was performed. Coronal and sagittal reformations were obtained. Automated dose lowering techniques and/or adjustment according to patient size were u tilized for this exam. Comparison: None available at the time of this dictation. FINDINGS: Lungs and pleura: Moderate bilateral pleural effusions are seen. There is a 4 mm nodule in the right upper lung. Atelectasis is noted. Heart and pericardium: Heart size is normal. No pericardial effusion. Vessels: The pulmonary trunk is enlarged measuring moderate atherosclerotic disease is seen. Mediastinum and len: 10 mm right cardiophrenic lymph node is seen. Chest wall and lower neck: Unremarkable. Abdomen: For findings below the diaphragm, please refer to CT of the abdomen dated the same. Bones: Degenerative changes in the thoracic spine. IMPRESSION: Moderate bilateral pleural effusions with associated atelectasis. There is a right cardiophrenic node as well as a 4 mm nodule in the right upper lung. ACT 112: Negative or not required by law. Electronically signed by: Reid Cadena M.D. 11/04/2022 2:32 PM
--- NOTE | 2022-11-04 15:05 | History & Physical Report ---
Date of Service November 04, 2022 Assessment & Plan (1) Weakness: Plan: Weakness. ,? Prerenal ARF +/- sepsis UA infected versus contaminated although no urinary symptoms fever/chills. Does have new leukocytosis Pro-Manish elevated Blood cultures pending, empiric cefepime continued. No history of MRSA, MRSA nares negative Received 1 L NSS at time of consultation, 30 cc/kg initial deferred due to history of CHF and renal failure with evidence of pulmonary edema and pleural effusions - Lactate 3.1 --> 2.8 - ABG pending, VBG trended - CT-H: 1. No acute intracranial hemorrhage, midline shift or acute territorial infarct. 2. Indeterminate 1.9 cm hypodense focus of the left cerebellum which may represent an age-indeterminate infarct. This could be correlated with follow-up MRI if there is further clinical concern. This is noted on prior CT-H from [facility], confirmed on 11/04 - CT-Chest: Moderate bilateral pleural effusions with associated atelectasis. There is a right cardiophrenic node as well as a 4 mm nodule in the right upper lung. - Ct-A/P: 1. Thickening within the cecum and ascending colon. This could be due to a portal colopathy or nonspecific colitis. 2. No evidence for a bowel obstruction. 3. Moderate pleural effusions, small amount of ascites, and moderate body wall edema again noted. 4. Ill-defined 4.5 cm soft tissue mass/lymphadenopathy centered at the celiac axis. There is associated retroperitoneal lymphadenopathy and a 10 cm heterogeneous mass within the left hepatic lobe. This likely represents metastatic disease. This is similar to the prior study. clinically volume overloaded but intravascularly depleted. Hypoalbuminemic, and is with suspected 10 cm metastatic liver lesion. No history of alcohol use or hepatitis. Soft pressures and 80 systolic have improved to 90s with fluids, unfortunately he also has an oxygen requirement and moderate suspect transudative effusions but in the context of metastatic cancer exudative malignant effusion cannot be ruled out. No obvious metastasis, nodule is noted on CT Albumin 50 g given while in ER, continue every 8 hours at this time. Nephrology following for assistance with fluid management, appreciate recommendations Transferred to ICU. Bicarb 80cc/hr pending. MAP currently ~75-80 on bedside assessment. Acute renal failure on CKD No in house prior records available, by report baseline creatinine is around 1.5. Was discharged from [facility] after 10-day admission for renal failure with peak creatinine of 3 Patient reports he did restart his Lasix and losartan following that discharge Somewhat poor historian, thinks he has been peeing relatedly little for the last 2 to 3 days Suspect prerenal with intravascular depletion. Prealbumin is pending Nephrology consulted. Albumin continued. Fluids as noted. Appreciate re commendations Suspected Metastatic - 10cm L hepatic lobe mass, likely metastatic CA 199: Normal CEA elevated at 12 suspicious for adenocarcinoma Last colonoscopy 5-6 years ago, no suspicious lesions at that time but was recommended 5-year follow-up IR consulted for liver biopsy, this is within their scope of practice here if/when patient is stable left do so. Currently precluded by level of illness and anticoagulation. Patient is with potential left atrial but not definitive atrial thrombus for which he is continued on heparin gtt. Aspirin temporarily held for potential biopsy/the History of Afib On Xarelto While at [facility] the end of September patient did have a MANI from which a atrial thrombus possible/not definitively excluded. TTE was with normal EF, pending transfer of MANI record however atrial thrombus concern from this was noted in progress note report. While patient may be pending a liver biopsy and would need coagulation held, in the setting of a possible active atrial thrombus risks of holding anticoagulation exceed the benefits. Cards consulted for?TTE to r/o before holding for biopsy. We will switch to heparin drip at this time. If patient improves and is stable enough to undergo a MANI would recommend this for exclusion of thrombus prior to holding anticoagulation for liver biopsy. EKGs with bradycardia as noted at time of admission, beta-luanne held. No history of symptomatic bradycardia CAD, s/p CABG High sensitive troponin 116 Reportedly with reduced ejection fraction,TTE 10/15/2022: EF 60-65% with normal wall motion EKG sinus bradycardia, QTc 523, no territorial ST segment changes. Anterior Q waves. Patient is with bradycardia inappropriate to his hypotension, suspect blunted chronotropic response due to beta-luanne. This is held. 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 DVT PPx: Anticoagulated CODE: DNR/DNI, OK with intubation for respiratory protection Diet: Renal, HH Dispo: ICU (2) Acute renal failure: (3) Hypoalbuminemia: (4) Elevated troponin level: (5) Hypertension: (6) Diabetes: (7) Heart failure: (8) Suspected malignant neoplasm: History of Present Illness Primary Care Provider: Trey Higgins Capp, Bill Rosas is a 77-year-old male with a past medical history of CHF with reported reduced ejection fraction although recent normal echo, hypertension, DM 2, CKD with recent admission in [facility] for renal failure requiring dialysis and subsequent return of creatinine to baseline of around 1.5 who read presents as a walk-in from the ER with general weakness, poor oral intake, lower extremity edema and fatigue following discharge from [facility] 10 days ago for renal failure with A-fib/RVR and atrial thrombus. Normal BP 'lower of late. Thats why he ended up at [facility] 75cc output in last 3-3.5 hours Denies history of bradycardia. Reports history of IA 7 years quad bipass in [facility]. No stents. Has peed a bit intermittently, not sure if its more, less, or about the same as normal. No fevers/chills. No burning with urination Pain in lower back which has been present for7 years unchanged 'straight down the middle.' No numbness or tingling in the arms or legs No bloody or black BMs Last colo 5 years ago, had to cancel was actually due to reschedule this year in [facility]. No fhx of colorectal cancer. 'No sign of cancer in anyone in the family as far as I know.' Denies OTC NSAID use, is on aspirin 81mg daily No fevers, chills. Did not take insulin this morning Took meds this morning including amlodipine and metoprolol. +swelling in the legs Furosemide held Swelling last 2 days is worse than normal Did start taking lasix once he returned home Medical History: Reviewed Medications: Reviewed Surgical History: Reviewed Family history: Reviewed Allergies: Reviewed Social History: Remote history of tobacco use 30 years, denies alochol. Code Status: DNR/DNI Outside Rec review: PCP note 10/25/2022 reviewed from [facility]. Of note: Eliquis 5 mg twice daily switch to Xarelto 15 mg twice daily Patient was on clonidine, glipizide, losartan and these were stopped Continued on Norvasc 10 mg, aspirin 81 mg, gabapentin 300 mg, NovoLog, Basaglar 20 units, Lopressor 100 mg, Lipitor 40 mg, metformin 5 mg, and Synthroid 25 mg At that patient patient wanted urgent referrals to GI for liver biopsy and colonoscopy, urology referral for kidney biopsy, and oncology referral to cancer follow-up. Also wanted a lift chair from [facility] for weakness Type II DM: Continued on Basaglar 20 units a.m., NovoLog sliding scale 1: 25 Hypothyroid: Synthroid 25 continued Hyperlipidemia, atorvastatin 40 mg continued Lasix 40-80 mg based on swelling continued, proBNP 8888 at that time Cirrhosis unspecified: AST 163/ALT 80. Pending GI follow-up AST greater than 2 times ALT,? Alcohol intake. Hep B/hep C pending. Ferritin 1164 at the time nephrology note 10/12/2022 for acute renal failure Suspected prerenal from volume depletion from poor oral intake and overdiuresis during hospitalization No evidence of obstructive uropathy at that time. Urine with 1+ protein with history of diabetes Renal function did improve with IV fluid hydration Lasix was recommended to be held at that time Losartan was held at that time Allergies Allergy/AdvReac Type Severity Reaction Status Date / Time No Known Allergies Allergy Verified 11/01/22 14:16 Home Medications Medication Instructions Recorded Confirmed Type amlodipine 10 mg tablet 10 mg PO DAILY 11/01/22 11/04/22 History aspirin 81 mg tablet,delayed 81 mg PO DAILY 11/01/22 11/04/22 History release (Adult Aspirin Regimen) furosemide 40 mg tablet 40 mg PO DAILY PRN swelling/wt gain 11/01/22 11/04/22 History gabapentin 100 mg capsule 100 mg PO DAILY 11/01/22 11/04/22 History insulin glargine 100 unit/mL (3 20 unit subcut QDB 11/01/22 11/04/22 History mL) subcutaneous pen levothyroxine 25 mcg capsule 25 mcg PO DAILYBB 11/01/22 11/04/22 History rivaroxaban 15 mg tablet (Xarelto) 15 mg PO QPM 11/01/22 11/04/22 History tramadol 50 mg tablet 50 mg PO Q8 PRN arthritic pain 11/01/22 11/04/22 History atorvastatin 40 mg tablet 40 mg PO HS 11/04/22 11/04/22 History clonidine HCl 0.3 mg tablet 0.3 mg PO Q8 PRN SBP 160 & > 11/04/22 11/04/22 History gabapentin 300 mg capsule 300 - 600 mg PO HS 11/04/22 11/04/22 History glipizide 10 mg tablet 10 mg PO QID 11/04/22 11/04/22 History insulin aspart U-100 100 unit/mL See Rx Instructions .Route .COMPLEX 11/04/22 11/04/22 History (3 mL) subcutaneous pen (Novolog FlexPen U-100 Insulin aspart) losartan 100 mg tablet 100 mg PO DAILY 11/04/22 11/04/22 History metoprolol tartrate 50 mg tablet 100 mg PO BID 11/04/22 11/04/22 History Past Med/Surg History Medical History Carpal tunnel syndrome Heart attack High cholesterol Surgical History Total knee replacement status Family History Other Heart disease Social History Smoking Status: Never smoker Hx Alcohol Use: No Preferred Language: Pashto marital status: current occupational status: retired Feels Safe at Home: Yes Review of Systems Review of Systems: All systems reviewed & are unremarkable except as noted in HPI & below Physical Exam Physical Exam: General: Appears fatigued. Answers questions appropriately. Alert and oriented x3 HEENT: Atraumatic, normocephalic. Pulm: Diminished in the bases symmetrical chest rise. No increased work of breathing. No respiratory distress. Cardiac: Regular,, -mrg. Radial pulses intact and symmetrical. Abdominal: Softly distended, nontender./. BS present. Ext: Pitting edema through the lower extremities bilaterally. Results & Data Results & Data Vital Signs (Past 12 Hours) Vital Signs Temp Pulse Resp BP Pulse Ox O2 Del Method 11/04/22 12:36 45 L 11/04/22 11:53 36.6 C 47 L 18 79/52 L 98 Room Air PG Care Time/CCT Total # of Minutes Spent Total Time Spent with Patient: Total time spent is greater than 50% in coordination of care (as documented) at patient's floor/unit and/or counseling patient: Coding Level of Care Code 99377 INT INP/OBS CARE 375MIN Diagnoses Weakness R53.1 Acute renal failure N17.9 Hypoalbuminemia E88.09 Elevated troponin level R77.8 Hypertension I10 Diabetes E11.9 Heart failure I50.9 Suspected malignant neoplasm R68.89
[2022-11-04] MEDS: ALBUMIN 25% 25 GM/100 ML VIAL IV SCH ×3 (15:27→22:13)
--- NOTE | 2022-11-04 15:55 | Electrocardiogram Report ---
Test Reason : Blood Pressure : / mmHG Vent. Rate : 047 BPM Atrial Rate : 047 BPM P-R Int : 202 ms QRS Dur : 092 ms QT Int : 592 ms P-R-T Axes : 022 024 138 degrees QTc Int : 523 ms Sinus bradycardia Low voltage QRS Poor R wave progression, consider anterior NM vs. lead placement vs. LVH Abnormal ECG No previous ECGs available Confirmed by Royer Reyes ([id number]) on 11/04/2022 3:54:49 PM Referred By: Confirmed By:Royer Reyes
--- NOTE | 2022-11-04 16:08 | XCELERA ---
[id number] \\[email or web address]\[id number]
[2022-11-04 16:31] LABS: Troponin I High Sensitivity 102.8 pg/ml (0-20)
--- NOTE | 2022-11-04 17:27 | Nephrology Consultation ---
Date of Consultation November 04, 2022 Assessment & Plan (1) Acute renal failure: * ANGEL/CKD likely due to hypotension and reduced EAV related to hypoalbuminemia/cirrhosis/liver mass and 3rd spacing of volume * Urine sediment reveals only hyaline casts c/w a low perfusion state. No granular ATN casts reported * 11/04/[address] was negative for hydronephrosis and revealed only a small, stable L renal cyst * Patient has high anion gap metabolic acidosis with mild hyperkalemia due to hypotension/sepsis and lactic acidosis * Agree w/ stopping all antihypertensive agents including ROLLY/ARB * Patient will require ICU care and vasopressor support * Recommend SPA 25 g IV q8 hrs until serum albumin 3.0 or above * Will provide NaHCO3 infusion * Given hemodynamic instability, patient likely will not tolerate HD at this time. Recommend supportive care in ICU setting w/ pressor therapy * Monitor UO, PRP (2) Chronic kidney disease: * Baseline Cr 1.4 (3) Hypotension: * ICU and pressor support as recommended above * Await blood culture results * Prognosis is guarded (4) Suspected malignant neoplasm: * 11/04/[address]: 10 cm heterogeneous mass within the L hepatic lobe., 4.5 cm soft tissue mass centered at the celiac axis, thickening within the cecum and ascending colon, moderate pleural effusions, small amount of ascites, moderate body wall edema (5) Elevated troponin level: * Trend troponin * Await echocardiogram results History of Present Illness Reason for Consultation: ANGLE/CKD History of Present Illness Mr. Rosas is a 77 year old white male who is seen at the request of Dr. Larson for evaluation of ANGEL/CKD. Patient is unable to provide much history. Information for the HPI is obtained from medical records in the EMR. HPI is summarized as follows: Mr. Rosas has a documented h/o AODM, ASCVD s/p CABG, chronic back pain, HTN, hyperlipidemia, prior L cerebellar infarct, LORETO, hypothyroidism. His baseline creatinine has been 1.4. Mr. Rosas was hospitalized 10/10/22 - 10/17/22 at [facility] for evaluation of vertigo/orthostatic hypotension and ANGEL/CKD. Antihypertensive medications were stopped and IV hydration provided. Creatinine peaked at 3.0 but improved to 1.9 at the time of discharge. Mr. Rosas did not require HD. IV fluids were stopped when patient developed progressive LE swelling, ascites and small bilateral pleural effusions. Over the course of his hospitalization, Mr. Rosas developed atrial fibrillation. Heart rate was controlled w/ beta luanne and amiodarone therapy. 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 Amiodarone was later held when patient was found to have rising WBC# and LFT's. Blood cultures were negative, empiric antibiotics were provided and patient was started on Rivaroxaban therapy. Abdominal CT was performed to look for a potential source of infection and rising LFT's. Mr. Rosas was found to have a 10 cm liver mass, a lesion involving the celiac axis and a questionable lesion involving one of his kidneys. CEA level returned + suggestive of possible adenocarcinoma. Patient was discharged for outpatient Oncology and Urology evaluation. Mr. Rosas's family reports that he was ambulatory at home, but today became increasingly weak. He was brought to [facility] to expedite his Oncology evaluation. In the EMD evaluation revealed BP 79/52, WBC 15.6, Hgb 13.4, lactate 2.8, Cr 4.07, K 5.3, CO2 20, T. bili 5.6, AST 208, alk phos 359, albumin 2.3, procalcitonin 1.86, THS 14, troponin 102.8, BNP 694, urine microscopy w/ 1-5 hyaline casts. Allergies Allergy/AdvReac Type Severity Reaction Status Date / Time No Known Allergies Allergy Verified 11/01/22 14:16 Home Medications Medication Instructions Recorded Confirmed Type amlodipine 10 mg tablet 10 mg PO DAILY 11/01/22 11/04/22 History aspirin 81 mg tablet,delayed 81 mg PO DAILY 11/01/22 11/04/22 History release (Adult Aspirin Regimen) furosemide 40 mg tablet 40 mg PO DAILY PRN swelling/wt gain 11/01/22 11/04/22 History gabapentin 100 mg capsule 100 mg PO DAILY 11/01/22 11/04/22 History insulin glargine 100 unit/mL (3 20 unit subcut QDB 11/01/22 11/04/22 History mL) subcutaneous pen levothyroxine 25 mcg capsule 25 mcg PO DAILYBB 11/01/22 11/04/22 History rivaroxaban 15 mg tablet (Xarelto) 15 mg PO QPM 11/01/22 11/04/22 History tramadol 50 mg tablet 50 mg PO Q8 PRN arthritic pain 11/01/22 11/04/22 History atorvastatin 40 mg tablet 40 mg PO HS 11/04/22 11/04/22 History clonidine HCl 0.3 mg tablet 0.3 mg PO Q8 PRN SBP 160 & > 11/04/22 11/04/22 History gabapentin 300 mg capsule 300 - 600 mg PO HS 11/04/22 11/04/22 History glipizide 10 mg tablet 10 mg PO QID 11/04/22 11/04/22 History insulin aspart U-100 100 unit/mL See Rx Instructions .Route .COMPLEX 11/04/22 11/04/22 History (3 mL) subcutaneous pen (Novolog FlexPen U-100 Insulin aspart) losartan 100 mg tablet 100 mg PO DAILY 11/04/22 11/04/22 History metoprolol tartrate 50 mg tablet 100 mg PO BID 11/04/22 11/04/22 History Patient History Medical History Carpal tunnel syndrome Heart attack High cholesterol Surgical History Total knee replacement status Family History Other Heart disease Social History Smoking Status: Never smoker Hx Alcohol Use: No Preferred Language: Armenian marital status: current occupational status: retired Feels Safe at Home: Yes Review of Systems Review of Systems: Unobtainable due to reduced consciousness Physical Exam Constitutional: + ill appearing Eyes: PERRL scleral icterus Neck: trachea midline, no thyromegaly Respiratory: no respiratory distress CTA anteriorly. Patient could not sit up for auscultation of posterior lung bejarano Cardiovascular: Rate/Rhythm: + bradycardic Heart Sounds: no murmur and no cardiac rub Extremities: + edema (3+ LE pitting edema) Gastrointestinal (Abdomen): Inspection/Auscultation: + abdomen distended and + hypoactive bowel sounds Percussion/Palpation: + ascites; abdomen nontender and no guarding Skin: no rashes Neurologic: awake and + confused oriented to self only Results & Data Vital Signs (Past 12 Hours) Vital Signs Temp Pulse Pulse Resp BP BP Pulse Ox 11/04/22 16:55 44 L 11/04/22 15:36 45 L 18 89/48 L 99 11/04/22 15:13 48 L 18 95/55 L 95 11/04/22 15:11 45 L 18 99/55 L 95 11/04/22 12:36 45 L 11/04/22 11:53 36.6 C 47 L 18 79/52 L 98 O2 Del Method O2 Flow Rate 11/04/22 16:55 11/04/22 15:36 Nasal Cannula 2 11/04/22 15:13 Nasal Cannula 2 11/04/22 15:11 Nasal Cannula 2 11/04/22 12:36 11/04/22 11:53 Room Air Laboratory Results Laboratory Results WBC 15.60 K/ul (4.8-10.8) H 11/04/22 12:25 RBC 4.84 M/uL (4.70-6.10) 11/04/22 12:25 Hgb 13.4 g/dl (14.0-18.0) L 11/04/22 12:25 POC Hgb 15.3 g/dl (14.0-18.0) 11/04/22 12:35 Hct 38.9 % (42.0-52.0) L 11/04/22 12:25 POC Hct 45 % (42-52) 11/04/22 12:35 MCV 80.4 fL (80.0-100.0) 11/04/22 12:25 MCH 27.7 pg (25.0-34.0) 11/04/22 12:25 MCHC 34.4 g/dL (32.0-36.0) 11/04/22 12:25 RDW Std Deviation 66.6 fL (36.4-46.3) H 11/04/22 12:25 RDW Coeff of Celina 24.5 % (11.5-14.5) H 11/04/22 12:25 Plt Count 211 K/uL (130-400) 11/04/22 12:25 MPV 13.2 fL (9.4-12.4) H 11/04/22 12:25 Immature Gran % (Auto) 0.8 % 11/04/22 12:25 Neut % (Auto) 68.4 % 11/04/22 12:25 Lymph % (Auto) 13.2 % 11/04/22 12:25 [facility] % (Auto) 12.1 % 11/04/22 12:25 Eos % (Auto) 5.1 % 11/04/22 12:25 Baso % (Auto) 0.4 % 11/04/22 12:25 Neut # (Auto) 10.65 K/uL (1.40-6.50) H 11/04/22 12:25 Lymph # (Auto) 2.06 K/uL (1.2-3.4) 11/04/22 12:25 [facility] # (Auto) 1.89 K/uL (0.11-0.59) H 11/04/22 12:25 Eos # (Auto) 0.80 K/uL (0-0.50) H 11/04/22 12:25 Baso # (Auto) 0.07 K/uL (0-0.2) 11/04/22 12:25 Immature Gran # (Auto) 0.13 K/uL (0.01-0.20) 11/04/22 12:25 Absolute Nucleated RBC 0.02 K/uL (0-0.12) 11/04/22 12:25 Nucleated RBC % (auto) 0.1 % 11/04/22 12:25 Polychromasia 2+ 11/04/22 12:25 Target Cells 1+ 11/04/22 12:25 Tear Drop Cells 1+ 11/04/22 12:25 PT 15.4 Seconds (9.0-12.0) H 11/04/22 12:25 INR 1.4 (0.9-1.1) H 11/04/22 12:25 POC Sodium 138 mmol/L (135-144) 11/04/22 12:35 Sodium 137 mmol/L (136-145) 11/04/22 12:25 POC Potassium 5.3 mmol/L (3.3-5.0) H 11/04/22 12:35 Potassium 5.3 mmol/L (3.5-5.1) H 11/04/22 12:25 POC Chloride 108 mmol/L (101-112) 11/04/22 12:35 Chloride 103 mmol/L (98-107) 11/04/22 12:25 Carbon Dioxide 20 mmol/L (21-32) L 11/04/22 12:25 POC Total CO2 19 mmol/L (24-31) L 11/04/22 12:35 Anion Gap 14 (3-11) H 11/04/22 12:25 POC Anion Gap 18.0 mmol/L (16-25) 11/04/22 12:35 POC BUN 117 mg/dl (7-18) H* 11/04/22 12:35 BUN 140 mg/dl (6-23) H 11/04/22 12:25 Creatinine 4.07 mg/dl (0.6-1.4) H 11/04/22 12:25 POC Creatinine 4.6 mg/dl (0.6-1.3) H* 11/04/22 12:35 Est Cr Clr Drug Dosing Not Reportable 11/04/22 12:25 Est GFR ( Amer) 15.6 ml/min 11/04/22 12:25 Est GFR (Non-Af Amer) 13.4 ml/min 11/04/22 12:25 BUN/Creatinine Ratio 34.4 (10-20) H 11/04/22 12:25 Glucose 94 mg/dl (70-99(Fasting)) 11/04/22 12:25 POC Glucose (other) 96 mg/dl (70-99) 11/04/22 12:35 Lactate 2.8 mmol/L (0.4-2.0) H* 11/04/22 16:30 Calcium 8.3 mg/dl (8.6-10.3) L 11/04/22 12:25 POC Ioniz Calcium Viky 0.95 mmol/l (1.12-1.32) L 11/04/22 12:35 Phosphorus 7.2 mg/dl (2.5-4.9) H 11/04/22 12:25 Magnesium 2.7 mg/dl (1.7-2.4) H 11/04/22 12:25 Total Bilirubin 5.6 mg/dl (0.2-1.0) H 11/04/22 12:25 Direct Bilirubin Cancelled 11/04/22 15:23 Direct Bilirubin TNP 11/04/22 15:23 AST 208 U/L (13-39) H 11/04/22 12:25 ALT 80 U/L (7-52) H 11/04/22 12:25 Alkaline Phosphatase 359 U/L (34-104) H 11/04/22 12:25 Troponin I High Sens 102.8 pg/ml (0-20) H* 11/04/22 15:23 B-Natriuretic Peptide 694 pg/ml (0-100) H 11/04/22 14:19 Total Protein 6.6 gm/dl (6.0-8.3) 11/04/22 12:25 Albumin 2.3 gm/dl (3.4-5.0) L 11/04/22 12:25 Globulin 4.3 gm/dl (2.5-4.0) H 11/04/22 12:25 Albumin/Globulin Ratio 0.5 (0.9-2) L 11/04/22 12:25 Lipase 9 U/L (11-82) L 11/04/22 12:25 Procalcitonin 1.86 ng/ml (0-0.5) H 11/04/22 12:25 TSH 14.014 uIu/ml (0.300-4.500) H 11/04/22 12:25 Free T4 0.90 ng/dl (0.61-1.60) 11/04/22 12:25 Urine Color Dark Yellow 11/04/22 13:11 Urine Appearance Clear (Clear) 11/04/22 13:11 Urine pH 5.0 (4.5-7.5) 11/04/22 13:11 Ur Specific Mcgregor 1.016 (1.000-1.030) 11/04/22 13:11 Urine Protein Trace (Negative) H 11/04/22 13:11 Urine Glucose (UA) Negative (Negative) 11/04/22 13:11 Urine Ketones Negative (Negative) 11/04/22 13:11 Urine Blood 1+ (Negative) H 11/04/22 13:11 Urine Nitrite Positive (Negative) A 11/04/22 13:11 Urine Bilirubin 1+ (Negative) H 11/04/22 13:11 Urine Urobilinogen Negative (Negative) 11/04/22 13:11 Ur Leukocyte Esterase Trace (Negative) H 11/04/22 13:11 Urine WBC (Auto) 1-5 /hpf (0-5) 11/04/22 13:11 Urine RBC (Auto) 10-30 /hpf (0-4) H 11/04/22 13:11 U Hyaline Cast (Auto) 1-5 /lpf (0-5) 11/04/22 13:11 U Epithel Cells (Auto) 20-30 /lpf (0-5) H 11/04/22 13:11 Urine Bacteria (Auto) 1+ (Negative) H 11/04/22 13:11 Ur Random Sodium 14 mmol/L 11/04/22 13:53 Impressions Chest X-Ray 11/04/22 12:17 XR chest 1V portable CLINICAL HISTORY: Chest pain, nonspecific TECHNIQUE: Single frontal radiograph of the chest was obtained. Comparison: Comparison is made to CT abdomen pelvis 11/04/2022 FINDINGS: Median sternotomy wires are unchanged. Calcified aortic knob is seen. Right hilar density is seen. Prominence of the pulmonary vasculature is noted. Small bilateral pleural effusions are seen. IMPRESSION: 1. Right hilar density may represent mediastinal lymph nodes or airspace opacity. 2. Mild pulmonary edema. 3. Small bilateral pleural effusions. ACT 112: Negative or not required by law. Electronically signed by: Reid Cadena M.D. 11/04/2022 1:07 PM Abdomen/Pelvis CT 11/04/22 12:[address] WITHOUT CONTRAST CT DOSE: 2771.38 mGy.cm HISTORY: Shortness of breath, hypotensive, ?liver mets, ARF TECHNIQUE: Multiaxial CT images of the abdomen and pelvis were performed without contrast. A dose lowering technique was utilized adhering to the principles of ALARA. COMPARISON STUDY: Outside hospital abdomen and pelvis CT 10/14/2022. FINDINGS: Moderate bilateral pleural effusions and bibasilar densities persist. This is better appreciated on the same day chest CT. No pneumoperitoneum. No pneumatosis. There are poststernotomy changes. No acute fractures identified. The heart is mildly enlarged. There is a 9 mm anterior pericardial lymph node again noted. Small fat-containing umbilical hernia. There are small fat- containing bilateral inguinal hernias. Moderate body wall edema has progressed in the interval. Heterogeneity within the majority the left hepatic lobe measuring up to 10 cm in size. This is similar to the prior study and is consistent with a hepatic mass/metastatic disease. The unenhanced spleen and adrenal glands are unremarkable. No hydronephrosis. Stable left renal cyst. Irregular soft tissue mass/lymphadenopathy centered at the celiac axis again noted. This measures approximately 4.5 cm. Atrophic pancreas with multiple pancreatic calcifications again noted. Retroperitoneal lymphadenopathy persists. Calcified plaque in the normal caliber abdominal aorta. Mild mesenteric lymphadenopathy is also noted. Small amount of ascites, unchanged. The bladder is decompressed by a Lamar catheter. Thickening within the cecum and ascending colon. This is nonspecific but could be due to a portal colopathy or nonspecific colitis. No dilated loops of bowel to suggest an obstruction. Subtle nodular contour to the liver suggestive of cirrhosis. IMPRESSION: 1. Thickening within the cecum and ascending colon. This could be due to a portal colopathy or nonspecific colitis. 2. No evidence for a bowel obstruction. 3. Moderate pleural effusions, small amount of ascites,, and moderate body wall edema again noted. 4. Ill-defined 4.5 cm soft tissue mass/lymphadenopathy centered at the celiac axis. There is associated retroperitoneal lymphadenopathy and a 10 cm heterogeneous mass within the left hepatic lobe. This likely represents metastatic disease. This is similar to the prior study. 5. Additional findings as described above. ACT 112: Negative or not required by law. Electronically signed by: Tk Brian M.D. 11/04/2022 2:[address] 11/04/22 12:53 CT chest diagnostic wo con CLINICAL HISTORY: sob, hypotensive, ?liver mets, ARF TECHNIQUE: Multidetector row helical CT of the chest was performed. Coronal and sagittal reformations were obtained. Automated dose lowering techniques and/or adjustment according to patient size were utilized for this exam. Comparison: None available at the time of this dictation. FINDINGS: Lungs and pleura: Moderate bilateral pleural effusions are seen. There is a 4 mm nodule in the right upper lung. Atelectasis is noted. Heart and pericardium: Heart size is normal. No pericardial effusion. Vessels: The pulmonary trunk is enlarged measuring moderate atherosclerotic disease is seen. Mediastinum and len: 10 mm right cardiophrenic lymph node is seen. Chest wall and lower neck: Unremarkable. Abdomen: For findings below the diaphragm, please refer to CT of the abdomen dated the same. Bones: Degenerative changes in the thoracic spine. IMPRESSION: Moderate bilateral pleural effusions with associated atelectasis. There is a right cardiophrenic node as well as a 4 mm nodule in the right upper lung. ACT 112: Negative or not required by law. Electronically signed by: Reid Cadena M.D. 11/04/2022 2:[address] 11/04/22 12:54 CT head/brain wo con CLINICAL HISTORY: 77 years-old Male with ams. Acutely altered mental status TECHNIQUE: Multiple axial CT images of the head were obtained without contrast. A dose lowering technique was utilized adhering to the principles of ALARA. COMPARISON: None. FINDINGS: No acute intracranial hemorrhage, midline shift, intracranial mass, hydrocephalus, territorial ischemia or abnormal extra-axial collection. Involutional changes with white matter hypodensities suggestive of chronic microvascular ischemic disease. Indeterminate ill-defined 1.9 cm hypodense focus within the mid left cerebellum, image 6 series 2. The calvarium is intact. Small right parietal scalp contusion. The paranasal sinuses, mastoid air cells, and middle ear cavities are clear. IMPRESSION: 1. No acute intracranial hemorrhage, midline shift or acute territorial infarct. 2. Indeterminate 1.9 cm hypodense focus of the left cerebellum which may represent an age-indeterminate infarct. This could be correlated with follow-up MRI if there is further clinical concern. ACT 112: Negative or not required by law. The above report was generated using voice recognition software. It may contain grammatical, syntax or spelling errors. Electronically signed by: Rajesh Nascimento M.D. 11/04/2022 2:31 PM PG Care Time/CCT Total # of Minutes Spent Total Time Spent with Patient: Total time spent is greater than 50% in coordination of care (as documented) at patient's floor/unit and/or counseling patient: Coding Level of Care Code 98469 IN/OBS CONSULT LVL 5,80M Diagnoses Acute renal failure N17.9 Chronic kidney disease N18.9 Hypotension I95.9 Suspected malignant neoplasm R68.89 Elevated troponin level R77.8
[2022-11-04] MEDS ORDERED: PLASMA-LYTE A 1,000 ML IV SCH (17:30)
[2022-11-04 17:37] LABS: Creatinine Urine Random 119.6 mg/dl
[2022-11-04] MEDS ORDERED: Heparin IV Adult Wt-Based Standard *NO* Bolus Protocol IV STA (18:03)
[2022-11-04] MEDS ORDERED: SODIUM BICARBONATE 8.4% 150 MEQ in WATER, STERILE 1,000 ML IV ONE (18:30)
[2022-11-04 18:38] LABS: Base Excess ABG -9.3 mEq/L (-9-1.8); HCO3 ABG 16 mmol/L (19-24); Oxygen Saturation ABG 99.9 % (90-95); PCO2 ABG 34 mmHg (35-46); PO2 ABG 125 mmHg (80-95); pH ABG 7.29 (7.35-7.45)
[2022-11-04 18:46] LABS: Allen Test Pos (Pos)
--- NOTE | 2022-11-04 20:02 | Critical Care Consultation ---
Date of Consultation November 04, 2022 Assessment & Plan (1) Shock: (2) Acute renal failure: (3) Hypoalbuminemia: (4) Hypotension: (5) Elevated troponin level: (6) Diabetes: (7) Heart failure: (8) Afib: (9) Renal mass of unknown nature: (10) Liver lesion: (11) Pleural cavity effusion: (12) LORETO (obstructive sleep apnea): (13) Hypothyroidism: (14) Elevated liver enzymes: Plan Reason Critically Ill: 77 YOM admitted to ICU for shock (undifferentiated) with organ dysfunction of renals, liver, in the setting of history of unspecified renal lesion and newly identified liver lesion. History of PAF as well as reported Left Atrial Appendage Thrombus Neuro - Grade I encephalopathy CAM ICU: Negative - Multifactorial however with elevated Liver enzymes, liver mass, elevated ammonia- consistent with grade I Hepatic Encephalopathy - Is without focal deficits - Head CT on admission without acute process- does note age indeterminant left cerebellum CVA - Continue with supportive care- MAPS >65 - Maintain Euglycemia - Ammonia 89 - Supportive care at this time pending further work up and evaluations. Cardiac - Shock, Sinus Bradycardia, Possible Left Atrial Appendage thrombus, PAF, CAD, HTN, HLD, HFpEF, Elevated HScTNi - Patient presents in shock - undifferentiated at this time- - DDX: multifactorial to include hypovolemia/liver vasodilatory shock, and possible sepsis - Continue with volume challenges as needed to maintain UO - Vasopressor support with Norepinephrine for MAPS- 65-75 (75 if hepatic related) - For his Bradycardia- hold BB, it is possible that his hypotension is also related to bradycardia in setting of BB use and decreased renal clearance - ionized CA is low- will provide 2 GM CA Gluconate - Send tick borne labs as well - Left atrial appendage- continue with Heparin infusion - consider Cardiology consultation for ? in repeating MANI - Elevated HScTNI- Likely demand in the setting of hypotension- ECHO completed on admission with EF 65-70% and without RWMA- this with normal ECG likely not ischemic related - CAD Continue statin- hold ASA until procedural evaluations completed - Diurese when able Respiratory - LORETO, Pleural Effusions, Pulmonary nodule - CPAP 15 or AutoPap at night - Bilateral pleural effusions RT>LT- likely secondary to volume status low oncotic pressure vs. malignancy- consider diagnostic thora in process of malignancy workup - Pulmonary nodule associated with 10mm (1.0CM) cardiophrenic node - GI - Liver lesion (10cm) unspecified, Elevated LFTs, Elevated CEA level, Ascites - With hepatic encephalopathy, elevated LFTs, INR 1.4, hyperbilirubinemia and liver mass- start Lactulose- DDX Liver injury secondary to hypotension vs. liver failure in setting of liver lesion. - Reportedly previous colonoscopy was ~ 5 years ago- he was scheduled for GI consultation 11/04/22- however this was obviously not completed as admission to hospital - Ascites noted on bedside ultrasound- RLQ - GI consultation appreciated for assistance with workup for possible Cancer - Consider NAC therapy - CT abdomen/pelvis was obtained however without contrast secondary to GUINEA PIG BREEDER- - Thickening within the cecum and ascending colon. This could be due to a portal colopathy or nonspecific colitis - 4.5 cm soft tissue mass/lymphadenopathy at celiax axis and associated retroperitoneal lymphadenopathy and 10 CM mass within left hepatic lobe - Will send Tylenol level, Hepatitis panel, and tick borne RENAL/LYTES -ARF, Anion Gap Metabolic Acidosis, Complicated, UTI - ARF likely secondary to pre-renal hypovolemia/vasodilatory shock, complicated likely by ARB - Volume replete - Albumin 25 GM q8 hours recommended by nephro- follow - Continue isotonic HCO3 infusion - UTI with LE, Nit, and 1+ bacteria- Continue Cefepime- await culture - UA with trace blood and trace protein - HOLD ARB - Likely a poor candidate for BIRD TENDER even in the setting of hypotension - Metabolic Acidosis with Anion GAP- Secondary to renal function and elevated lactate- continue with isotonic HCO3 and trend lactate/renal indicies - Mitchell to gravity - Mitchell to gravity follow UO hourly ENDO - DMII - Hold oral agents - ICU hyperglycemic protocol HEME - Possibly Malignancy - As above- lymphnodes noted retroperitoneal, thoracic cavity- associated with liver lesion, pulmonary nodule, and previous notes of left renal lesion (unspecified) - Patient likely will need multifactorial evaluation - will need medical support and stabilization as above ID - Sepsis, UTI - Patient technically meet sepsis criteria- Leukocytosis, hypothermia, Hypotension- associated with elevated Lactate and Procalcitonin - Source: Urine, GI or both- continue with Cefepime while awaiting cultures - Trend Lactate - Tick borne labs sent as well - Maintain MAPS-65-75 LINES/IV ACCESS - PIV, Mitchell Continue use of these lines - Patient and Family (, Daughters, Sons) Verbally consented as delegated to me by Dr. Ann, if Central Access would be needed DVT PROPHYLAXIS - SCDs, Heparin Infusion CODE: DNR/DNI- Intubation for procedural workup would be appropriate per family DISPO: ICU while needing hemodynamic support and following renal indices I have personally spent 55 minutes of critical care time in the direct management of this patient. This is a life/limb threatening event. This includes time spent evaluating patient, direct bedside care, chart review, placing orders, interpretation of diagnostic studies, discussion with consultants, patient, and family members, as well as other required patient management activities. This time is exclusive of all separately billable procedures, and separate from and in addition to any other critical care service time. Thank you for allowing us to participate in the care of this patient. Please refer to my attending physician's documentation for any further recommendations. History of Present Illness Reason for Consultation: Shock: Hypotension with ARF Requesting Physician: Michael Larson MD Attending Physician: Michael Larson MD History of Present Illness 77 YOM with medical history of: 4V CABG, HTN, HLD, DMII, Hypothyroidism, CVA (Cerebellar infarction), Chronic back pain, HFrEF, Benign Neoplasm of kidney, Cirrhosis of liver unspecified. Patient came to EMD today secondary to continued complaint of feeling weak and family noting him falling asleep if no on is engaged with him, as well as poor oral intake. He was noted to be hypotensive on arrival he was given crystalloid as well as had routine labs performed. He was noted to have increase in his BUN and GUINEA PIG BREEDER, Acidosis with mild Anion gap, elevated lactate level, and elevated LFTS. He also had HScTNI drawn as well as BNP both elevated. He had an ECHO performed, as well as Nephrology consultation completed upon pending admission with hospitalist service. He was noted to have sediment with hyaline casts on urine and recommended supporting BP with vasopressors to ICU. He was initiated on Isotonic HCO3 infusion as well as Albumin infusions q8 hours. Patient appears Grade I encephalopathy, remains hypotensive with borderline MAPS. Will admit to ICU for following of acid base balance, volume status, hemodynamic support. He was initiated on Heparin infusion for reported Left atrial appendage thrombus. His las dose of his DOAC was 11/03/22 @ 1999. See below for pertinent history from recent admission to [facility]. Patient was recently evaluated at [facility] (10/10/22-10/17/22)- where he was taken secondary to frequent falls and vertiginousness symptoms reported- in the setting of leukocytosis. He had CT abdomen and pelvis completed, with concern for new liver lesion- felt to be metastatic. He was treated for ? Sepsis vs. Afib and hypovolemia- he was noted to be bradycardic there, where he currently is here as well- He was noted to go into Afib with RVR during his hospital stay there- reportedly had a MANI performed and noted a left atrial appendage thrombus- therefore he was not cardioverted. TTE records obtained by hospitalist on admission, however MANI records were not part of this. Reportedly blood cultures were negative during the stay and was empirically treated with Rocephin with decrease in his WBC counts. He also had CA markers- drawn which reports CA 19-9 and CEA - CA 19-9 was reported as normal and CEA was reported around 12. Allergies Allergy/AdvReac Type Severity Reaction Status Date / Time No Known Allergies Allergy Verified 11/01/22 14:16 Home Medications Medication Instructions Recorded Confirmed Type amlodipine 10 mg tablet 10 mg PO DAILY 11/01/22 11/04/22 History aspirin 81 mg tablet,delayed 81 mg PO DAILY 11/01/22 11/04/22 History release (Adult Aspirin Regimen) furosemide 40 mg tablet 40 mg PO DAILY PRN swelling/wt gain 11/01/22 11/04/22 History gabapentin 100 mg capsule 100 mg PO DAILY 11/01/22 11/04/22 History insulin glargine 100 unit/mL (3 20 unit subcut QDB 11/01/22 11/04/22 History mL) subcutaneous pen levothyroxine 25 mcg capsule 25 mcg PO DAILYBB 11/01/22 11/04/22 History rivaroxaban 15 mg tablet (Xarelto) 15 mg PO QPM 11/01/22 11/04/22 History tramadol 50 mg tablet 50 mg PO Q8 PRN arthritic pain 11/01/22 11/04/22 History atorvastatin 40 mg tablet 40 mg PO HS 11/04/22 11/04/22 History clonidine HCl 0.3 mg tablet 0.3 mg PO Q8 PRN SBP 160 & > 11/04/22 11/04/22 History gabapentin 300 mg capsule 300 - 600 mg PO HS 11/04/22 11/04/22 History glipizide 10 mg tablet 10 mg PO QID 11/04/22 11/04/22 History insulin aspart U-100 100 unit/mL See Rx Instructions .Route .COMPLEX 11/04/22 11/04/22 History (3 mL) subcutaneous pen (Novolog FlexPen U-100 Insulin aspart) losartan 100 mg tablet 100 mg PO DAILY 11/04/22 11/04/22 History metoprolol tartrate 50 mg tablet 100 mg PO BID 11/04/22 11/04/22 History Patient History Medical History (Updated 11/04/22 @ 21:59 by Javi Beckford MD) Acute renal failure Afib Carpal tunnel syndrome Chronic back pain Diabetes Elevated liver enzymes Heart attack Heart failure High cholesterol Hypertension Hypothyroidism Liver lesion LORETO (obstructive sleep apnea) Pleural cavity effusion Renal mass of unknown nature Shock Surgical History Total knee replacement status Family History Other Heart disease Social History Smoking Status: Former smoker Second Hand Exposure: No; Do You Dip or Chew Tobacco: No; Hx Alcohol Use: No Hx Substance Use: No Preferred Language: Kazakh Communication Ability: Effective House Mother Required: No Beliefs That Will Affect Care: None marital status: Current Living Situation: Spouse current occupational status: retired Other Information That Helps Us Care for You: No Feels Safe at Home: Yes Safety Concerns: Feels Safe At This Time Assistive Devices: Cane, CPAP and Walker Review of Systems Review of Systems: REVIEW OF SYSTEMS: Constitutional: (+) Chills Eyes: No diplopia, no worsening or blurred vision ENT: normal hearing, no trouble swallowing Respiratory: (+) LORETO with CPAP use, No cough, sputum, dyspnea at rest or on exertion Cardiovascular: No chest pain, tightness or palpitations Abdomen: (+) loss of appetite, early satiety,, No pain, nausea, vomiting, diarrhea or constipation Musculoskeletal: (+) chronic back pain, No joint pain, calf pain, swelling Neurologic: (+) dizziness, previous stroke, No weakness, numbness/tingling, or balance problems Psychiatric: No anxiety or depression Skin: No rash or itch Physical Exam Physical Exam: PHYSICAL EXAM: General: awake to voice, does drift off to sleep if not involved in conversation Head: Normocephalic, atraumatic ENT: PERRLA, EOMI, no icterus, no pharyngeal exudate, mucous membranes moist Neuro: AAO x 3, speech clear and appropriate, strength intact bilaterally 5/5 upper 4/5 lowers, sensation intact and equal all extremities and dermatomes, no pronator drift, no facial droop Chest: equal rise and fall of the chest, no accessory muscle use, decreased in bases with upper airway rhonchi, clears with cough Cardiac: Regular rate and rhythm, telemetry reviewed- Sinus bradycardia, skin warm dry, cap refill <3 seconds, peripheral pulses +2, no murumur, 3+ edema to bilateral lower extremities that extends up to knees. GI: NABS x 4 quadrants, soft, nontender to palpation, no rebound, guarding or tenderness, no fluid wave appreciated : Mitchell to gravity Psych: Normal mood and affect Skin: no rash or erythema Results & Data Results & Data Vital Signs (Past 12 Hours) Vital Signs Temp Pulse Pulse Resp BP BP Pulse Ox 11/04/22 18:46 47 L 15 92/51 L 98 11/04/22 18:45 46 L 17 92/51 L 100 11/04/22 17:44 46 L 16 94/50 L 97 11/04/22 17:13 68 16 98 11/04/22 16:55 44 L 11/04/22 15:36 45 L 18 89/48 L 99 11/04/22 15:13 48 L 18 95/55 L 95 11/04/22 15:11 45 L 18 99/55 L 95 11/04/22 12:36 45 L 11/04/22 11:53 36.6 C 47 L 18 79/52 L 98 O2 Del Method O2 Flow Rate 11/04/22 18:46 11/04/22 18:45 11/04/22 17:44 Nasal Cannula 2 11/04/22 17:13 Room Air 11/04/22 16:55 11/04/22 15:36 Nasal Cannula 2 11/04/22 15:13 Nasal Cannula 2 11/04/22 15:11 Nasal Cannula 2 11/04/22 12:36 11/04/22 11:53 Room Air Laboratory Results Abnormal lab results 11/04/22 11/04/22 11/04/22 Range/Units 12:25 12:25 12:25 WBC 15.60 H (4.8-10.8) K/ul Hgb 13.4 L (14.0-18.0) g/dl Hct 38.9 L (42.0-52.0) % RDW Std Deviation 66.6 H (36.4-46.3) fL RDW Coeff of Celina 24.5 H (11.5-14.5) % MPV 13.2 H (9.4-12.4) fL Neut # (Auto) 10.65 H (1.40-6.50) K/uL [place] # (Auto) 1.89 H (0.11-0.59) K/uL Eos # (Auto) 0.80 H (0-0.50) K/uL PT (9.0-12.0) Seconds INR (0.9-1.1) APTT (21.0-31.0) Seconds ABG pH (7.35-7.45) ABG pCO2 (35-46) mmHg ABG pO2 (80-95) mmHg ABG HCO3 (19-24) mmol/L ABG O2 Saturation (90-95) % ABG Base Excess (-9-1.8) mEq/L POC Potassium (3.3-5.0) mmol/L Potassium 5.3 H (3.5-5.1) mmol/L Carbon Dioxide 20 L (21-32) mmol/L POC Total CO2 (24-31) mmol/L Anion Gap 14 H (3-11) POC BUN (7-18) mg/dl BUN 140 H (6-23) mg/dl Creatinine 4.07 H (0.6-1.4) mg/dl POC Creatinine (0.6-1.3) mg/dl BUN/Creatinine Ratio 34.4 H (10-20) Lactate (0.4-2.0) mmol/L Calcium 8.3 L (8.6-10.3) mg/dl POC Ioniz Calcium Viky (1.12-1.32) mmol/l Phosphorus 7.2 H (2.5-4.9) mg/dl Magnesium 2.7 H (1.7-2.4) mg/dl Total Bilirubin 5.6 H (0.2-1.0) mg/dl Direct Bilirubin (0-0.2) mg/dl AST 208 H (13-39) U/L ALT 80 H (7-52) U/L Alkaline Phosphatase 359 H (34-104) U/L Troponin I High Sens 116.0 H* (0-20) pg/ml B-Natriuretic Peptide (0-100) pg/ml Albumin 2.3 L (3.4-5.0) gm/dl Globulin 4.3 H (2.5-4.0) gm/dl Albumin/Globulin Ratio 0.5 L (0.9-2) Lipase 9 L (11-82) U/L Procalcitonin (0-0.5) ng/ml TSH 14.014 H (0.300-4.500) uIu/ml Urine Protein (Negative) Urine Blood (Negative) Urine Nitrite (Negative) Urine Bilirubin (Negative) Ur Leukocyte Esterase (Negative) Urine RBC (Auto) (0-4) /hpf U Epithel Cells (Auto) (0-5) /lpf Urine Bacteria (Auto) (Negative) 11/04/22 11/04/22 11/04/22 Range/Units 12:25 12:25 12:25 WBC (4.8-10.8) K/ul Hgb (14.0-18.0) g/dl Hct (42.0-52.0) % RDW Std Deviation (36.4-46.3) fL RDW Coeff of Celina (11.5-14.5) % MPV (9.4-12.4) fL Neut # (Auto) (1.40-6.50) K/uL [place] # (Auto) (0.11-0.59) K/uL Eos # (Auto) (0-0.50) K/uL PT 15.4 H (9.0-12.0) Seconds INR 1.4 H (0.9-1.1) APTT 40.2 H* (21.0-31.0) Seconds ABG pH (7.35-7.45) ABG pCO2 (35-46) mmHg ABG pO2 (80-95) mmHg ABG HCO3 (19-24) mmol/L ABG O2 Saturation (90-95) % ABG Base Excess (-9-1.8) mEq/L POC Potassium (3.3-5.0) mmol/L Potassium (3.5-5.1) mmol/L Carbon Dioxide (21-32) mmol/L POC Total CO2 (24-31) mmol/L Anion Gap (3-11) POC BUN (7-18) mg/dl BUN (6-23) mg/dl Creatinine (0.6-1.4) mg/dl POC Creatinine (0.6-1.3) mg/dl BUN/Creatinine Ratio (10-20) Lactate (0.4-2.0) mmol/L Calcium (8.6-10.3) mg/dl POC Ioniz Calcium Viky (1.12-1.32) mmol/l Phosphorus (2.5-4.9) mg/dl Magnesium (1.7-2.4) mg/dl Total Bilirubin (0.2-1.0) mg/dl Direct Bilirubin (0-0.2) mg/dl AST (13-39) U/L ALT (7-52) U/L Alkaline Phosphatase (34-104) U/L Troponin I High Sens (0-20) pg/ml B-Natriuretic Peptide (0-100) pg/ml Albumin (3.4-5.0) gm/dl Globulin (2.5-4.0) gm/dl Albumin/Globulin Ratio (0.9-2) Lipase (11-82) U/L Procalcitonin 1.86 H (0-0.5) ng/ml TSH (0.300-4.500) uIu/ml Urine Protein (Negative) Urine Blood (Negative) Urine Nitrite (Negative) Urine Bilirubin (Negative) Ur Leukocyte Esterase (Negative) Urine RBC (Auto) (0-4) /hpf U Epithel Cells (Auto) (0-5) /lpf Urine Bacteria (Auto) (Negative) 11/04/22 11/04/22 11/04/22 Range/Units 12:35 13:11 14:19 WBC (4.8-10.8) K/ul Hgb (14.0-18.0) g/dl Hct (42.0-52.0) % RDW Std Deviation (36.4-46.3) fL RDW Coeff of Celina (11.5-14.5) % MPV (9.4-12.4) fL Neut # (Auto) (1.40-6.50) K/uL [place] # (Auto) (0.11-0.59) K/uL Eos # (Auto) (0-0.50) K/uL PT (9.0-12.0) Seconds INR (0.9-1.1) APTT (21.0-31.0) Seconds ABG pH (7.35-7.45) ABG pCO2 (35-46) mmHg ABG pO2 (80-95) mmHg ABG HCO3 (19-24) mmol/L ABG O2 Saturation (90-95) % ABG Base Excess (-9-1.8) mEq/L POC Potassium 5.3 H (3.3-5.0) mmol/L Potassium (3.5-5.1) mmol/L Carbon Dioxide (21-32) mmol/L POC Total CO2 19 L (24-31) mmol/L Anion Gap (3-11) POC BUN 117 H* (7-18) mg/dl BUN (6-23) mg/dl Creatinine (0.6-1.4) mg/dl POC Creatinine 4.6 H* (0.6-1.3) mg/dl BUN/Creatinine Ratio (10-20) Lactate 3.1 H* (0.4-2.0) mmol/L Calcium (8.6-10.3) mg/dl POC Ioniz Calcium Viky 0.95 L (1.12-1.32) mmol/l Phosphorus (2.5-4.9) mg/dl Magnesium (1.7-2.4) mg/dl Total Bilirubin (0.2-1.0) mg/dl Direct Bilirubin (0-0.2) mg/dl AST (13-39) U/L ALT (7-52) U/L Alkaline Phosphatase (34-104) U/L Troponin I High Sens (0-20) pg/ml B-Natriuretic Peptide (0-100) pg/ml Albumin (3.4-5.0) gm/dl Globulin (2.5-4.0) gm/dl Albumin/Globulin Ratio (0.9-2) Lipase (11-82) U/L Procalcitonin (0-0.5) ng/ml TSH (0.300-4.500) uIu/ml Urine Protein Trace H (Negative) Urine Blood 1+ H (Negative) Urine Nitrite Positive A (Negative) Urine Bilirubin 1+ H (Negative) Ur Leukocyte Esterase Trace H (Negative) Urine RBC (Auto) 10-30 H (0-4) /hpf U Epithel Cells (Auto) 20-30 H (0-5) /lpf Urine Bacteria (Auto) 1+ H (Negative) 11/04/22 11/04/22 11/04/22 Range/Units 14:19 15:23 16:30 WBC (4.8-10.8) K/ul Hgb (14.0-18.0) g/dl Hct (42.0-52.0) % RDW Std Deviation (36.4-46.3) fL RDW Coeff of Celina (11.5-14.5) % MPV (9.4-12.4) fL Neut # (Auto) (1.40-6.50) K/uL [place] # (Auto) (0.11-0.59) K/uL Eos # (Auto) (0-0.50) K/uL PT (9.0-12.0) Seconds INR (0.9-1.1) APTT (21.0-31.0) Seconds ABG pH (7.35-7.45) ABG pCO2 (35-46) mmHg ABG pO2 (80-95) mmHg ABG HCO3 (19-24) mmol/L ABG O2 Saturation (90-95) % ABG Base Excess (-9-1.8) mEq/L POC Potassium (3.3-5.0) mmol/L Potassium (3.5-5.1) mmol/L Carbon Dioxide (21-32) mmol/L POC Total CO2 (24-31) mmol/L Anion Gap (3-11) POC BUN (7-18) mg/dl BUN (6-23) mg/dl Creatinine (0.6-1.4) mg/dl POC Creatinine (0.6-1.3) mg/dl BUN/Creatinine Ratio (10-20) Lactate 2.8 H* (0.4-2.0) mmol/L Calcium (8.6-10.3) mg/dl POC Ioniz Calcium Viky (1.12-1.32) mmol/l Phosphorus (2.5-4.9) mg/dl Magnesium (1.7-2.4) mg/dl Total Bilirubin (0.2-1.0) mg/dl Direct Bilirubin (0-0.2) mg/dl AST (13-39) U/L ALT (7-52) U/L Alkaline Phosphatase (34-104) U/L Troponin I High Sens 102.8 H* (0-20) pg/ml B-Natriuretic Peptide 694 H (0-100) pg/ml Albumin (3.4-5.0) gm/dl Globulin (2.5-4.0) gm/dl Albumin/Globulin Ratio (0.9-2) Lipase (11-82) U/L Procalcitonin (0-0.5) ng/ml TSH (0.300-4.500) uIu/ml Urine Protein (Negative) Urine Blood (Negative) Urine Nitrite (Negative) Urine Bilirubin (Negative) Ur Leukocyte Esterase (Negative) Urine RBC (Auto) (0-4) /hpf U Epithel Cells (Auto) (0-5) /lpf Urine Bacteria (Auto) (Negative) 11/04/22 11/04/22 Range/Units 17:05 17:43 WBC (4.8-10.8) K/ul Hgb (14.0-18.0) g/dl Hct (42.0-52.0) % RDW Std Deviation (36.4-46.3) fL RDW Coeff of Celina (11.5-14.5) % MPV (9.4-12.4) fL Neut # (Auto) (1.40-6.50) K/uL [place] # (Auto) (0.11-0.59) K/uL Eos # (Auto) (0-0.50) K/uL PT (9.0-12.0) Seconds INR (0.9-1.1) APTT (21.0-31.0) Seconds ABG pH 7.29 L (7.35-7.45) ABG pCO2 34 L (35-46) mmHg ABG pO2 125 H (80-95) mmHg ABG HCO3 16 L (19-24) mmol/L ABG O2 Saturation 99.9 H (90-95) % ABG Base Excess -9.3 L (-9-1.8) mEq/L POC Potassium (3.3-5.0) mmol/L Potassium (3.5-5.1) mmol/L Carbon Dioxide (21-32) mmol/L POC Total CO2 (24-31) mmol/L Anion Gap (3-11) POC BUN (7-18) mg/dl BUN (6-23) mg/dl Creatinine (0.6-1.4) mg/dl POC Creatinine (0.6-1.3) mg/dl BUN/Creatinine Ratio (10-20) Lactate (0.4-2.0) mmol/L Calcium (8.6-10.3) mg/dl POC Ioniz Calcium Viky (1.12-1.32) mmol/l Phosphorus (2.5-4.9) mg/dl Magnesium (1.7-2.4) mg/dl Total Bilirubin (0.2-1.0) mg/dl Direct Bilirubin 2.9 H (0-0.2) mg/dl AST (13-39) U/L ALT (7-52) U/L Alkaline Phosphatase (34-104) U/L Troponin I High Sens (0-20) pg/ml B-Natriuretic Peptide (0-100) pg/ml Albumin (3.4-5.0) gm/dl Globulin (2.5-4.0) gm/dl Albumin/Globulin Ratio (0.9-2) Lipase (11-82) U/L Procalcitonin (0-0.5) ng/ml TSH (0.300-4.500) uIu/ml Urine Protein (Negative) Urine Blood (Negative) Urine Nitrite (Negative) Urine Bilirubin (Negative) Ur Leukocyte Esterase (Negative) Urine RBC (Auto) (0-4) /hpf U Epithel Cells (Auto) (0-5) /lpf Urine Bacteria (Auto) (Negative) Diagnostic Findings Chest X-Ray 11/04/22 12:17 XR chest 1V portable CLINICAL HISTORY: Chest pain, nonspecific TECHNIQUE: Single frontal radiograph of the chest was obtained. Comparison: Comparison is made to CT abdomen pelvis 11/04/2022 FINDINGS: Median sternotomy wires are unchanged. Calcified aortic knob is seen. Right hilar density is seen. Prominence of the pulmonary vasculature is noted. Small bilateral pleural effusions are seen. IMPRESSION: 1. Right hilar density may represent mediastinal lymph nodes or airspace opacity. 2. Mild pulmonary edema. 3. Small bilateral pleural effusions. ACT 112: Negative or not required by law. Electronically signed by: Reid Cadena M.D. 11/04/2022 1:07 PM Abdomen/Pelvis CT 11/04/22 12:[address] WITHOUT CONTRAST CT DOSE: 2771.38 mGy.cm HISTORY: Shortness of breath, hypotensive, ?liver mets, ARF TECHNIQUE: Multiaxial CT images of the abdomen and pelvis were performed without contrast. A dose lowering technique was utilized adhering to the principles of ALARA. COMPARISON STUDY: Outside hospital abdomen and pelvis CT 10/14/2022. FINDINGS: Moderate bilateral pleural effusions and bibasilar densities persist. This is better appreciated on the same day chest CT. No pneumoperitoneum. No pneumatosis. There are poststernotomy changes. No acute fractures identified. The heart is mildly enlarged. There is a 9 mm anterior pericardial lymph node again noted. Small fat-containing umbilical hernia. There are small fat- containing bilateral inguinal hernias. Moderate body wall edema has progressed in the interval. Heterogeneity within the majority the left hepatic lobe measuring up to 10 cm in size. This is similar to the prior study and is consistent with a hepatic mass/metastatic disease. The unenhanced spleen and adrenal glands are unremarkable. No hydronephrosis. Stable left renal cyst. Irregular soft tissue mass/lymphadenopathy centered at the celiac axis again noted. This measures approximately 4.5 cm. Atrophic pancreas with multiple pancreatic calcifications again noted. Retroperitoneal lymphadenopathy persists. Calcified plaque in the normal caliber abdominal aorta. Mild mesenteric lymphadenopathy is also noted. Small amount of ascites, unchanged. The bladder is decompressed by a Mitchell catheter. Thickening within the cecum and ascending colon. This is nonspecific but could be due to a portal colopathy or nonspecific colitis. No dilated loops of bowel to suggest an obstruction. Subtle nodular contour to the liver suggestive of cirrhosis. IMPRESSION: 1. Thickening within the cecum and ascending colon. This could be due to a portal colopathy or nonspecific colitis. 2. No evidence for a bowel obstruction. 3. Moderate pleural effusions, small amount of ascites,, and moderate body wall edema again noted. 4. Ill-defined 4.5 cm soft tissue mass/lymphadenopathy centered at the celiac axis. There is associated retroperitoneal lymphadenopathy and a 10 cm heterogeneous mass within the left hepatic lobe. This likely represents metastatic disease. This is similar to the prior study. 5. Additional findings as described above. ACT 112: Negative or not required by law. Electronically signed by: Tk Brian M.D. 11/04/2022 2:[address] 11/04/22 12:53 CT chest diagnostic wo con CLINICAL HISTORY: sob, hypotensive, ?liver mets, ARF TECHNIQUE: Multidetector row helical CT of the chest was performed. Coronal and sagittal reformations were obtained. Automated dose lowering techniques and/or adjustment according to patient size were utilized for this exam. Comparison: None available at the time of this dictation. FINDINGS: Lungs and pleura: Moderate bilateral pleural effusions are seen. There is a 4 mm nodule in the right upper lung. Atelectasis is noted. Heart and pericardium: Heart size is normal. No pericardial effusion. Vessels: The pulmonary trunk is enlarged measuring moderate atherosclerotic disease is seen. Mediastinum and len: 10 mm right cardiophrenic lymph node is seen. Chest wall and lower neck: Unremarkable. Abdomen: For findings below the diaphragm, please refer to CT of the abdomen dated the same. Bones: Degenerative changes in the thoracic spine. IMPRESSION: Moderate bilateral pleural effusions with associated atelectasis. There is a right cardiophrenic node as well as a 4 mm nodule in the right upper lung. ACT 112: Negative or not required by law. Electronically signed by: Reid Cadena M.D. 11/04/2022 2:[address] 11/04/22 12:54 CT head/brain wo con CLINICAL HISTORY: 77 years-old Male with ams. Acutely altered mental status TECHNIQUE: Multiple axial CT images of the head were obtained without contrast. A dose lowering technique was utilized adhering to the principles of ALARA. COMPARISON: None. FINDINGS: No acute intracranial hemorrhage, midline shift, intracranial mass, hydrocephalus, territorial ischemia or abnormal extra-axial collection. Involutional changes with white matter hypodensities suggestive of chronic microvascular ischemic disease. Indeterminate ill-defined 1.9 cm hypodense focus within the mid left cerebellum, image 6 series 2. The calvarium is intact. Small right parietal scalp contusion. The paranasal sinuses, mastoid air cells, and middle ear cavities are clear. IMPRESSION: 1. No acute intracranial hemorrhage, midline shift or acute territorial infarct. 2. Indeterminate 1.9 cm hypodense focus of the left cerebellum which may represent an age-indeterminate infarct. This could be correlated with follow-up MRI if there is further clinical concern. ACT 112: Negative or not required by law. The above report was generated using voice recognition software. It may contain grammatical, syntax or spelling errors. Electronically signed by: Rajesh Nascimento M.D. 11/04/2022 2:31 PM Medications Administered Home Medications amlodipine 10 mg tablet 10 mg PO DAILY 11/01/22 [History Confirmed 11/04/22] aspirin 81 mg tablet,delayed release (Adult Aspirin Regimen) 81 mg PO DAILY 11/01/22 [History Confirmed 11/04/22] furosemide 40 mg tablet 40 mg PO DAILY PRN swelling/wt gain 11/01/22 [History Confirmed 11/04/22] gabapentin 100 mg capsule 100 mg PO DAILY 11/01/22 [History Confirmed 11/04/22] insulin glargine 100 unit/mL (3 mL) subcutaneous pen 20 unit subcut QDB 11/01/22 [History Confirmed 11/04/22] levothyroxine 25 mcg capsule 25 mcg PO DAILYBB 11/01/22 [History Confirmed 11/04/22] rivaroxaban 15 mg tablet (Xarelto) 15 mg PO QPM 11/01/22 [History Confirmed 11/04/22] tramadol 50 mg tablet 50 mg PO Q8 PRN arthritic pain 11/01/22 [History Confirmed 11/04/22] atorvastatin 40 mg tablet 40 mg PO HS 11/04/22 [History Confirmed 11/04/22] clonidine HCl 0.3 mg tablet 0.3 mg PO Q8 PRN SBP 160 & > 11/04/22 [History Confirmed 11/04/22] gabapentin 300 mg capsule 300 - 600 mg PO HS 11/04/22 [History Confirmed 11/04/22] glipizide 10 mg tablet 10 mg PO QID 11/04/22 [History Confirmed 11/04/22] insulin aspart U-100 100 unit/mL (3 mL) subcutaneous pen (Novolog FlexPen U-100 Insulin aspart) See Rx Instructions .Route .COMPLEX 11/04/22 [History Confirmed 11/04/22] losartan 100 mg tablet 100 mg PO DAILY 11/04/22 [History Confirmed 11/04/22] metoprolol tartrate 50 mg tablet 100 mg PO BID 11/04/22 [History Confirmed 11/04/22] Active Medications Albumin Human (Albumin 25%) 25 gm in 100 mls @ 50 mls/hr IV Q8H SUSAN Stop: 11/07/22 22:59 Sodium Bicarbonate 150 meq/ (Sterile Water) 1,150 mls @ 80 mls/hr IV .[id number] ONE Stop: 11/05/22 08:52 Last Admin: 11/04/22 19:27 Dose: 80 mls/hr Heparin Sodium/Dextrose (Heparin Sodium/Dextrose) 25,000 units in 500 mls @ 29 mls/hr IV .[id number] SUSAN; Protocol Stop: 12/04/22 18:29 Cefepime HCl 1,000 mg/ Syringe 10 mls @ 5 mls/min IV Q12H SUSAN Stop: 11/07/22 02:59 Norepinephrine Bitartrate (Levophed/D5w) 4 mg in 250 mls @ 19.594 mls/hr IV .[id number] SUSAN; Protocol Stop: 12/04/22 20:29 Levothyroxine Sodium (Levothyroxine Sodium 25 Mcg Tablet) 25 mcg PO DAILYBB SUSAN Stop: 12/05/22 06:29 Miscellaneous (Icu Protocol For Hyperglycemia) 1 each N/A ACHS SUSAN Stop: 11/06/22 20:59 Polyethylene Glycol (Polyethylene (Miralax) 17 Gm Pack) 17 gm PO DAILY PRN PRN Reason: Constipation Stop: 12/04/22 20:22 ECG Additional Comments: Sinus bradycardia Low voltage QRS Poor R wave progression, consider anterior MO vs. lead placement vs. LVH Abnormal ECG No previous ECGs available Confirmed by Royer Reyes ([id number]) on 11/04/2022 3:54:49 PM Coding Level of Care Code 75829 CRITICAL CARE 1ST 30-74M Diagnoses Shock R57.9 Acute renal failure N17.9 Hypoalbuminemia E88.09 Hypotension I95.9 Elevated troponin level R77.8 Diabetes E11.9 Heart failure I50.9 Afib I48.91 Renal mass of unknown nature N28.89 Liver lesion K76.9 Pleural cavity effusion J90 LORETO (obstructive sleep apnea) G47.33 Hypothyroidism E03.9 Elevated liver enzymes R74.8
[2022-11-04] MEDS ORDERED: STAT IV STA (20:10)
[2022-11-04 20:12] LABS: Partial Thromboplastin Ratio 1.4
[2022-11-04] MEDS ORDERED: CALCIUM GLUCONATE 10% 2,000 MG in DEXTROSE 5% 50 ML IV ONE (20:15)
[2022-11-04] MEDS ORDERED: STAT IV Infusion **Titration per Protocol STA (20:23)
[2022-11-04] MEDS ORDERED: POLYETHYLENE (MIRALAX) 17 GM PACK PO PRN (20:23)
[2022-11-04 20:24] LABS: Partial Thromboplastin Time 40.2 Seconds (21.0-31.0)
[2022-11-04] MEDS: HEPARIN SODIUM/DEXTROSE 25,000 UNITS/500 ML BAG IV SCH ×3 (20:55→21:00)
[2022-11-04] MEDS: NOREPINEPHRINE/D5W 4 MG/250 ML PLCT IV SCH ×3 (21:24→22:27)
[2022-11-04 21:26] LABS: Base Excess VBG -8.2 mEq/L; HCO3 VBG 18 mmol/L; Oxygen Saturation VBG 87.7 %; PCO2 VBG 38 mmHg (38-50); PO2 VBG 58 mmHg; pH VBG 7.28 (7.36-7.41)
[2022-11-04] MEDS: ICU Protocol for HYPERglycemia SCH (21:52)
[2022-11-04 21:54] LABS: Lyme Ab IgG w/WB Rflx Negative (Negative); Lyme Ab IgM w/WB Rflx Negative (Negative)
[2022-11-04] MEDS ORDERED: GLUCAGON FOR INJ 1 MG VIAL IM PRN (22:00)
[2022-11-04] MEDS ORDERED: CARBOHYDRATES FOR HYPOGLYCEMIA PO PRN (22:00)
[2022-11-04] MEDS ORDERED: DEXTROSE 50% 50 ML SYRINGE IV PRN (22:00)
[2022-11-04] MEDS ORDERED: GLUCOSE 40% GEL 15 GM TUBE PO PRN (22:00)
[2022-11-04] MEDS ORDERED: GLUCOSE 10 TAB/TUBE PO PRN (22:00)
[2022-11-04 22:01] LABS: BUN Creatinine Ratio 35.4 (10-20); Calcium 8.6 mg/dl (8.6-10.3); Creatinine Clr Calc Pharmacy 17.3 ml/min; Est GFR (African American) 15.4 ml/min; Est GFR (Non-African American) 13.3 ml/min; Potassium 5.2 mmol/L (3.5-5.1)
[2022-11-04] MEDS ORDERED: PLASMA-LYTE A 250 ML IV ONE (22:18)
[2022-11-04] MEDS: LACTULOSE SYRUP 30 GM/45 ML UDP PO SCH (23:18)
[2022-11-05 00:44] LABS: HCO3 VBG 18 mmol/L; PCO2 VBG 33 mmHg (38-50); PO2 VBG 58 mmHg; pH VBG 7.34 (7.36-7.41)
[2022-11-05 01:07] LABS: Calcium 8.4 mg/dl (8.6-10.3); Creatinine Clr Calc Pharmacy 16.7 ml/min; Est GFR (African American) 14.8 ml/min; Est GFR (Non-African American) 12.8 ml/min; Potassium 5.1 mmol/L (3.5-5.1)
[2022-11-05 01:23] LABS: BUN Creatinine Ratio 33.3 (10-20)
[2022-11-05] MEDS: CEFEPIME 1,000 MG in SYRINGE 0 ML IV SCH ×2 (03:07→16:08)
[2022-11-05 03:12] LABS: Base Excess VBG -5.7 mEq/L; HCO3 VBG 18 mmol/L; Oxygen Saturation VBG 85.8 %; PCO2 VBG 31 mmHg (38-50); PO2 VBG 58 mmHg; pH VBG 7.38 (7.36-7.41)
[2022-11-05 03:16] LABS: Basophils # (auto) 0.08 K/uL (0-0.2); Basophils % (auto) 0.5 %; Eosinophils # (auto) 1.31 K/uL (0-0.50); Eosinophils % (auto) 7.4 %; Hemoglobin 10.5 g/dl (14.0-18.0); Immature Granulocytes # (auto) 0.09 K/uL (0.01-0.20); Immature Granulocytes % (auto) 0.5 %; Lymphocytes # (auto) 2.14 K/uL (1.2-3.4); Lymphocytes % (auto) 12.1 %; Mean Corpuscular Hemoglobin 27.5 pg (25.0-34.0); Mean Corpuscular Hgb Conc 33.9 g/dL (32.0-36.0); Mean Corpuscular Volume 81.2 fL (80.0-100.0); Mean Platelet Volume 12.4 fL (9.4-12.4); Monocytes # (auto) 2.37 K/uL (0.11-0.59); Monocytes % (auto) 13.4 %; Neutrophils # (auto) 11.64 K/uL (1.40-6.50); Neutrophils % (auto) 66.1 %; Nucleated RBC # (auto) 0.02 K/uL (0-0.12); Nucleated RBC % (auto) 0.1 %; Platelet Count 178 K/uL (130-400); RDW Coefficient of Variation 23.6 % (11.5-14.5); RDW Standard Deviation 63.5 fL (36.4-46.3); Red Blood Count 3.82 M/uL (4.70-6.10); White Blood Count 17.63 K/ul (4.8-10.8)
[2022-11-05 03:41] LABS: Anisocytosis Present; Echinocytes 1+; Polychromasia 1+; Target Cells 1+
[2022-11-05 03:57] LABS: BUN Creatinine Ratio 33.1 (10-20); Bilirubin,Total 5.7 mg/dl (0.2-1.0); Calcium 8.2 mg/dl (8.6-10.3); Creatinine Clr Calc Pharmacy 16.7 ml/min; Est GFR (African American) 14.7 ml/min; Est GFR (Non-African American) 12.7 ml/min; Globulin 3.1 gm/dl (2.5-4.0); Magnesium 2.7 mg/dl (1.7-2.4); Phosphorus 7.3 mg/dl (2.5-4.9); Total Protein 6.1 gm/dl (6.0-8.3)
[2022-11-05 04:02] LABS: Partial Thromboplastin Ratio > 4.9
[2022-11-05 04:16] LABS: Partial Thromboplastin Time > 139.0 Seconds (21.0-31.0)
[2022-11-05] MEDS ORDERED: PLASMA-LYTE A 500 ML IV ONE (05:47)
[2022-11-05] MEDS: LEVOTHYROXINE SODIUM 25 MCG TABLET PO SCH (05:57)
[2022-11-05] MEDS: PLASMA-LYTE A 1,000 ML IV SCH ×2 (06:53→16:08)
[2022-11-05 07:15] LABS: Partial Thromboplastin Ratio > 4.9
[2022-11-05 07:30] LABS: Partial Thromboplastin Time > 139.0 Seconds (21.0-31.0)
[2022-11-05] MEDS: HEPARIN SODIUM/DEXTROSE 25,000 UNITS/500 ML BAG IV SCH (07:54)
[2022-11-05] MEDS: LACTULOSE SYRUP 30 GM/45 ML UDP PO SCH ×2 (08:11→14:22)
[2022-11-05] MEDS: LANTUS PER UNIT CHARGE SQ SCH (08:11)
[2022-11-05] MEDS: metroNIDAZOLE 500 MG/100 ML BAG IV SCH ×3 (08:11→22:43)
[2022-11-05] MEDS: ALBUMIN 25% 25 GM/100 ML VIAL IV SCH ×3 (08:11→22:43)
[2022-11-05] MEDS: ICU Protocol for HYPERglycemia SCH ×4 (08:12→20:41)
--- NOTE | 2022-11-05 08:57 | Critical Care Progress Note ---
Date of Service November 05, 2022 Assessment & Plan (1) Shock: (2) Acute renal failure: (3) Hypoalbuminemia: (4) Hypotension: (5) Elevated troponin level: (6) Diabetes: (7) Heart failure: (8) Afib: (9) Renal mass of unknown nature: (10) Liver lesion: (11) Pleural cavity effusion: (12) LORETO (obstructive sleep apnea): (13) Hypothyroidism: (14) Elevated liver enzymes: Plan Reason Critically Ill: 77 YOM admitted to ICU for shock (undifferentiated) with organ dysfunction of renals, liver, in the setting of history of unspecified renal lesion and newly identified liver lesion. History of PAF as well as reported Left Atrial Appendage Thrombus Neuro - Grade I encephalopathy CAM ICU: Negative - Multifactorial however with elevated Liver enzymes, liver mass, elevated ammonia- consistent with grade I Hepatic Encephalopathy - Is without focal deficits - Head CT on admission without acute process- does note age indeterminant left cerebellum CVA - Continue with supportive care- MAPS >65 - Maintain Euglycemia - Ammonia 89 - Supportive care Cardiac - Shock, Sinus Bradycardia, Possible Left Atrial Appendage thrombus, PAF, CAD, HTN, HLD, HFpEF, Elevated HScTNi - Patient presents in shock - undifferentiated at this time- - DDX: multifactorial to include hypovolemia/liver vasodilatory shock, and possible sepsis - Vasopressor support with Norepinephrine for MAPS- 65-75 (75 if hepatic related) - For his Bradycardia- hold BB, it is possible that his hypotension is also related to bradycardia in setting of BB use and decreased renal clearance - Send tick borne labs as well - Left atrial appendage- continue with Heparin infusion -Family confirms MANI performed at [facility], attempting to obtain this information Respiratory - LORETO, Pleural Effusions, Pulmonary nodule - CPAP 15 or AutoPap at night - Bilateral pleural effusions RT>LT- likely secondary to volume status low oncotic pressure vs. malignancy- consider diagnostic thora in process of malign jason workup - Pulmonary nodule associated with 10mm (1.0CM) cardiophrenic node - GI - Liver lesion (10cm) unspecified, Elevated LFTs, Elevated CEA level, Ascites - With hepatic encephalopathy, elevated LFTs, INR 1.4, hyperbilirubinemia and liver mass- start Lactulose- DDX Liver injury secondary to hypotension vs. liver failure in setting of liver lesion. 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 This could be due to a portal colopathy or nonspecific colitis - 4.5 cm soft tissue mass/lymphadenopathy at celiax axis and associated retroperitoneal lymphadenopathy and 10 CM mass within left hepatic lobe RENAL/LYTES -ARF, Anion Gap Metabolic Acidosis, Complicated, UTI, mild worsening - Albumin 25 GM q8 hours recommended by nephro- follow - Continue isotonic HCO3 infusion - UTI with LE, Nit, and 1+ bacteria- Continue Cefepime- await culture - UA with trace blood and trace protein - HOLD ARB - Likely a poor candidate for OVERHEAD CLEANER even in the setting of hypotension - Metabolic Acidosis with Anion GAP- Secondary to renal function and elevated lactate- continue with isotonic HCO3 and trend lactate/renal indicies - Mitchell to gravity - Mitchell to gravity follow UO hourly ENDO - DMII - Hold oral agents - ICU hyperglycemic protocol HEME - Possibly Malignancy - As above- lymphnodes noted retroperitoneal, thoracic cavity- associated with liver lesion, pulmonary nodule, and previous notes of left renal lesion (unspecified) - Patient likely will need multifactorial evaluation - will need medical support and stabilization as above ID - Sepsis, UTI - Patient technically meet sepsis criteria- Leukocytosis, hypothermia, Hypotension- associated with elevated Lactate and Procalcitonin - Source: Urine, GI or both- continue with Cefepime while awaiting cultures - Trend Lactate - Maintain MAPS-65-75 LINES/IV ACCESS - PIV, Mitchell Continue use of these lines - Patient and Family (, Daughters, Sons) Verbally consented as delegated to me by Dr. Ann, if Central Access would be needed DVT PROPHYLAXIS - SCDs, Heparin Infusion CODE: DNR/DNI- -had discussions with sons this morning. They report the last several weeks and arguably months the patient's baseline medical status has not been in line with the patient's goals. We discussed risks and benefits of stabilization from current medical decompensation and hopeful return to baseline and also additional work-up to further evaluate for possible malignancy. Patient's sons report that patient would not want significant medical diagnostics undertaken as he is exhibiting signs of poor physiologic conditioning and if this is a malignancy would likely not be able to tolerate active treatments. Certainly there are risks involved in obtaining a tissue diagnosis, the patient is a very medically complex requiring systemic anticoagulation for left atrial appendage thrombus although while needing a biopsy and or thoracentesis paracentesis. At this time everyone is leaning towards transitioning to comfort and limited invasive work-ups. Brothers are going to return with the patient's spouse and have further discussion regarding goals of care and possible transition to palliative care. DISPO: ICU while needing hemodynamic support I have personally spent 45 minutes of critical care time in the direct management of this patient. This is a life/limb threatening event. This includes time spent evaluating patient, direct bedside care, chart review, placing orders, interpretation of diagnostic studies, discussion with consultants, patient, and family members, as well as other required patient management act ivities. This time is exclusive of all separately billable procedures, and separate from and in addition to any other critical care service time. Update 1130: Patient's mental status improved had conversation with patient's , patient, 2 sons. We discussed prognosis and likely interventions needed to obtain diagnosis to further clarify mass. Patient affirmed DNR/DNI in event of cardiac arrest. Would like to proceed with initial interventions including thoracentesis and paracentesis to further identify and stratify the mass diagnosis. There are strong indications that this would be consistent with a malignancy. Patient does not want to proceed with further invasive evaluation however there is a need to constantly reevaluate risks and benefits as functional outcome is also of high importance with the patient and family. I have personally spent 35 minutes of critical care time in the direct management of this patient. This is a life/limb threatening event. This includes time spent evaluating patient, direct bedside care, chart review, placing orders, interpretation of diagnostic studies, discussion with consultants, patient, and/or family members regarding treatment decisions, as well as other required patient management activities. This time is exclusive of all separately billable procedures, and teaching time and separate from and in addition to any other critical care service time. Admission and Anticipated Discharge Date Admission Date: November 04, 2022 Subjective Patient's mental status/encephalopathy worsening overnight. Was able to somewhat interact with provider yesterday, worsened mental status this morning. Worsening urine output worsening creatinine Review of Systems Review of Systems: Unobtainable due to cognitive status Physical Exam Physical Exam: PHYSICAL EXAM: General: awake to voice, does drift off to sleep if not involved in conversation Head: Normocephalic, atraumatic ENT: PERRLA, EOMI, no icterus, no pharyngeal exudate, mucous membranes moist Neuro: Arouses to voice, only giving yes and no responses unable to engage in discussion, strength intact bilaterally 5/5 upper 4/5 lowers, sensation intact and equal all extremities and dermatomes, no pronator drift, no facial droop Chest: equal rise and fall of the chest, no accessory muscle use, decreased in bases with upper airway rhonchi, clears with cough Cardiac: Regular rate and rhythm, telemetry reviewed- Sinus bradycardia, skin warm dry, cap refill <3 seconds, GI: NABS x 4 quadrants, soft, nontender to palpation, no rebound, guarding or tenderness, no fluid wave appreciated : Mitchell to gravity Skin: no rash or erythema Results & Data Results & Data Vital Signs (Past 12 Hours) Vital Signs Temp Pulse Resp BP Pulse Ox O2 Del Method O2 Flow Rate 11/05/22 05:56 68 21 105/64 93 11/05/22 05:26 70 19 108/63 94 11/05/22 05:11 66 15 106/58 L 92 11/05/22 04:56 70 20 106/58 L 94 11/05/22 04:41 67 16 105/57 L 94 11/05/22 06:03 36.5 C 11/05/22 04:27 67 17 103/56 L 92 11/05/22 03:56 65 23 104/54 L 94 11/05/22 03:41 64 16 98/58 L 94 11/05/22 03:26 63 20 100/57 L 94 11/05/22 03:11 64 22 109/60 94 11/05/22 02:56 61 20 103/56 L 94 11/05/22 02:41 64 27 H 102/56 L 95 11/05/22 04:31 36.3 C L 11/05/22 03:23 36.3 C L 11/05/22 02:26 61 15 99/59 L 94 11/05/22 02:12 62 22 109/57 L 92 11/05/22 01:56 61 25 H 106/57 L 96 11/05/22 01:41 60 30 H 107/55 L 94 11/05/22 01:27 61 24 119/58 L 11/05/22 01:00 35.5 C L 61 21 95 11/05/22 00:56 35.5 C L 62 25 H 104/62 94 11/05/22 00:46 35.4 C L 60 27 H 96/50 L 94 11/05/22 01:05 Room Air 11/05/22 00:31 35.3 C L 61 16 101/56 L 94 11/05/22 00:16 35.1 C L 58 L 26 H 87/50 L 95 11/05/22 00:02 35.0 C L 58 L 27 H 93/50 L 93 11/04/22 23:46 34.9 C L 56 L 15 102/58 L 94 11/04/22 23:32 34.8 C L 58 L 18 100/52 L 90 11/04/22 23:16 34.8 C L 55 L 13 103/58 L 94 11/04/22 23:02 34.7 C L 52 L 17 101/56 L 94 11/04/22 22:47 34.6 C L 56 L 15 129/64 91 11/04/22 22:31 34.5 C L 49 L 17 95/55 L 95 11/04/22 22:16 34.4 C L 55 L 23 89/56 L 96 11/04/22 22:01 34.3 C L 53 L 22 94/54 L 97 11/04/22 21:47 34.2 C L 54 L 21 102/59 L 94 11/05/22 00:00 53 L 11/04/22 21:45 34.2 C L 57 L 22 96 11/04/22 21:31 104/62 11/04/22 21:31 34.2 C L 56 L 21 96 11/04/22 21:30 34.2 C L 54 L 17 97 11/04/22 21:15 34.2 C L 53 L 18 95 11/04/22 21:02 34.1 C L 53 L 23 94 11/04/22 21:02 95/51 L 11/04/22 21:34 Nasal Cannula 2 11/04/22 21:00 34.1 C L 53 L 19 96 Critical Care Results & Data Vital Signs (Past 12 Hours) Vital Signs Temp Pulse Resp BP Pulse Ox O2 Del Method O2 Flow Rate 11/05/22 05:56 68 21 105/64 93 11/05/22 05:26 70 19 108/63 94 11/05/22 05:11 66 15 106/58 L 92 11/05/22 04:56 70 20 106/58 L 94 11/05/22 04:41 67 16 105/57 L 94 11/05/22 06:03 36.5 C 11/05/22 04:27 67 17 103/56 L 92 11/05/22 03:56 65 23 104/54 L 94 11/05/22 03:41 64 16 98/58 L 94 11/05/22 03:26 63 20 100/57 L 94 11/05/22 03:11 64 22 109/60 94 11/05/22 02:56 61 20 103/56 L 94 11/05/22 02:41 64 27 H 102/56 L 95 11/05/22 04:31 36.3 C L 11/05/22 03:23 36.3 C L 11/05/22 02:26 61 15 99/59 L 94 11/05/22 02:12 62 22 109/57 L 92 11/05/22 01:56 61 25 H 106/57 L 96 11/05/22 01:41 60 30 H 107/55 L 94 11/05/22 01:27 61 24 119/58 L 11/05/22 01:00 35.5 C L 61 21 95 11/05/22 00:56 35.5 C L 62 25 H 104/62 94 11/05/22 00:46 35.4 C L 60 27 H 96/50 L 94 11/05/22 01:05 Room Air 11/05/22 00:31 35.3 C L 61 16 101/56 L 94 11/05/22 00:16 35.1 C L 58 L 26 H 87/50 L 95 11/05/22 00:02 35.0 C L 58 L 27 H 93/50 L 93 11/04/22 23:46 34.9 C L 56 L 15 102/58 L 94 11/04/22 23:32 34.8 C L 58 L 18 100/52 L 90 11/04/22 23:16 34.8 C L 55 L 13 103/58 L 94 11/04/22 23:02 34.7 C L 52 L 17 101/56 L 94 11/04/22 22:47 34.6 C L 56 L 15 129/64 91 11/04/22 22:31 34.5 C L 49 L 17 95/55 L 95 11/04/22 22:16 34.4 C L 55 L 23 89/56 L 96 11/04/22 22:01 34.3 C L 53 L 22 94/54 L 97 11/04/22 21:47 34.2 C L 54 L 21 102/59 L 94 11/05/22 00:00 53 L 11/04/22 21:45 34.2 C L 57 L 22 96 11/04/22 21:31 104/62 11/04/22 21:31 34.2 C L 56 L 21 96 11/04/22 21:30 34.2 C L 54 L 17 97 11/04/22 21:15 34.2 C L 53 L 18 95 11/04/22 21:02 34.1 C L 53 L 23 94 11/04/22 21:02 95/51 L 11/04/22 21:34 Nasal Cannula 2 11/04/22 21:00 34.1 C L 53 L 19 96 Lab & Micro Results (Past 24 Hours) RBC 3.82 M/uL (4.70-6.10) L 11/05/22 WBC 17.63 K/ul (4.8-10.8) H 11/05/22 Hgb 10.5 g/dl (14.0-18.0) L 11/05/22 Hct 31.0 % (42.0-52.0) L 11/05/22 MCV 81.2 fL (80.0-100.0) 11/05/22 MCH 27.5 pg (25.0-34.0) 11/05/22 MCHC 33.9 g/dL (32.0-36.0) 11/05/22 RDW Standard Deviation 63.5 fL (36.4-46.3) H 11/05/22 RDW Coefficient of Variation 23.6 % (11.5-14.5) H 11/05/22 Plt Count 178 K/uL (130-400) 11/05/22 MPV 12.4 fL (9.4-12.4) 11/05/22 Nucleated Red Blood Cells % (auto) 0.1 % 11/05 Nucleated RBC Absolute Count (auto) 0.02 K/uL (0-0.12) 10/19 11/10 Neutrophils (%) (Auto) 66.1 % 11/05/22 Lymphocytes (%) (Auto) 12.1 % 11/05/22 Monocytes # (Auto) 2.37 K/uL (0.11-0.59) H 11/05/22 Eosinophils # (Auto) 1.31 K/uL (0-0.50) H 11/05/22 Immature Granulocyte % (Auto) 0.5 % 11/05/22 Neutrophils # (Auto) 11.64 K/uL (1.40-6.50) H 11/05/22 Lymphocytes # (Auto) 2.14 K/uL (1.2-3.4) 11/05/22 Monocytes # (Auto) 2.37 K/uL (0.11-0.59) H 11/05/22 Eosinophils # (Auto) 1.31 K/uL (0-0.50) H 11/05/22 Basophils # (Auto) 0.08 K/uL (0-0.2) 11/05/22 Immature Granulocyte # (Auto) 0.09 K/uL (0.01-0.20) 3 Polychromasia 1+ 11/05/22 Echinocytes 1+ 11/05/22 Anisocytosis Present 11/05/22 Target Cells 1+ 11/05/22 Na 137 mmol/L (136-145) 11/05/22 K 5.0 mmol/L (3.5-5.1) 11/05/22 Cl 103 mmol/L (98-107) 11/05/22 CO2 17 mmol/L (21-32) L 11/05/22 Anion Gap 17 (3-11) H 11/05/22 BUN 141 mg/dl (6-23) H 11/05/22 Creatinine 4.26 mg/dl (0.6-1.4) H 11/05/22 Estimated GFR ( Amer) 14.7 ml/min 11/05/22 Estimated GFR (Non-Af Amer) 12.7 ml/min 11/05/22 BUN/Creatinine Ratio 33.1 (10-20) H 11/05/22 Glu 117 mg/dl (70-99(Fasting)) H 11/05/22 Ca 8.2 mg/dl (8.6-10.3) L 11/05/22 Phosphorus Level 7.3 mg/dl (2.5-4.9) H 11/05/22 Total Bilirubin 5.7 mg/dl (0.2-1.0) H 11/05/22 Direct Bilirubin 2.9 mg/dl (0-0.2) H 11/04/22 AST 159 U/L (13-39) H 11/05/22 ALT 59 U/L (7-52) H 11/05/22 Alkaline Phosphatase 242 U/L (34-104) H 11/05/22 TP 6.1 gm/dl (6.0-8.3) 11/05/22 Albumin 3.0 gm/dl (3.4-5.0) L 11/05/22 Globulin 3.1 gm/dl (2.5-4.0) 11/05/22 Albumin/Globulin Ratio 1.0 (0.9-2) 11/05/22 Lactate Dehydrogenase 372 U/L (86-244) H 11/05/22 Mg 2.7 mg/dl (1.7-2.4) H 11/05/22 03:02 Calcium Level 8.2 mg/dl (8.6-10.3) L 11/05/22 03:02 Venous Blood pH 7.37 (7.36-7.41) 11/05/22 09:02 Venous Blood Partial Pressure CO2 32 mmHg (38-50) L 11/05/22 09 :02 Venous Blood Partial Pressure O2 55 mmHg 11/05/22 09:02 Venous Blood HCO3 19 mmol/L 11/05/22 09:02 Venous Blood Base Excess -6.0 mEq/L 11/05/22 09:02 Venous Blood Oxygen Saturation 84.1 % 11/05/22 09:02 Arterial Blood pH 7.29 (7.35-7.45) L 11/04/22 17:43 Arterial Blood Partial Pressure CO2 34 mmHg (35-46) L 11/04/22 17:43 Arterial Blood Partial Pressure O2 125 mmHg (80-95) H 11/04/22 17:43 Arterial Blood HCO3 16 mmol/L (19-24) L 11/04/22 17:43 Arterial Blood Base Excess -9.3 mEq/L (-9-1.8) L 11/04/22 17:43 Arterial Blood Oxygen Saturation 99.9 % (90-95) H 11/04/22 17:4 3 Blood Gas Oxygen Given 2 11/04/22 17:43 [place] Test Pos (Pos) 11/04/22 17:43 Microbiology 11/04/22 20:56 Blood Parasites Smear - Preliminary Blood Diagnostic Findings (Past 24 Hours) Chest X-Ray 11/04/22 12:17 XR chest 1V portable CLINICAL HISTORY: Chest pain, nonspecific TECHNIQUE: Single frontal radiograph of the chest was obtained. Comparison: Comparison is made to CT abdomen pelvis 11/04/2022 FINDINGS: Median sternotomy wires are unchanged. Calcified aortic knob is seen. Right hilar density is seen. Prominence of the pulmonary vasculature is noted. Small bilateral pleural effusions are seen. IMPRESSION: 1. Right hilar density may represent mediastinal lymph nodes or airspace opacity. 2. Mild pulmonary edema. 3. Small bilateral pleural effusions. ACT 112: Negative or not required by law. Electronically signed by: Reid Cadena M.D. 11/04/2022 1:07 PM Abdomen/Pelvis CT 11/04/22 12:[address] WITHOUT CONTRAST CT DOSE: 2771.38 mGy.cm HISTORY: Shortness of breath, hypotensive, ?liver mets, ARF TECHNIQUE: Multiaxial CT images of the abdomen and pelvis were performed without contrast. A dose lowering technique was utilized adhering to the principles of ALARA. COMPARISON STUDY: Outside hospital abdomen and pelvis CT 10/14/2022. FINDINGS: Moderate bilateral pleural effusions and bibasilar densities persist. This is better appreciated on the same day chest CT. No pneumoperitoneum. No pneumatosis. There are poststernotomy changes. No acute fractures identified. The heart is mildly enlarged. There is a 9 mm anterior pericardial lymph node again noted. Small fat-containing umbilical hernia. There are small fat-containi ng bilateral inguinal hernias. Moderate body wall edema has progressed in the interval. Heterogeneity within the majority the left hepatic lobe measuring up to 10 cm in size. This is similar to the prior study and is consistent with a hepatic mass/metastatic disease. The unenhanced spleen and adrenal glands are unremarkable. No hydronephrosis. Stable left renal cyst. Irregular soft tissue mass/lymphadenopathy centered at the celiac axis again noted. This measures approximately 4.5 cm. Atrophic pancreas with multiple pancreatic calcifications again noted. Retroperitoneal lymphadenopathy persists. Calcified plaque in the normal caliber abdominal aorta. Mild mesenteric lymphadenopathy is also noted. Small amount of ascites, unchanged. The bladder is decompressed by a Mitchell catheter. Thickening within the cecum and ascending colon. This is nonspecific but could be due to a portal colopathy or nonspecific colitis. No dilated loops of bowel to suggest an obstruction. Subtle nodular contour to the liver suggestive of cirrhosis. IMPRESSION: 1. Thickening within the cecum and ascending colon. This could be due to a portal colopathy or nonspecific colitis. 2. No evidence for a bowel obstruction. 3. Moderate pleural effusions, small amount of ascites,, and moderate body wall edema again noted. 4. Ill-defined 4.5 cm soft tissue mass/lymphadenopathy centered at the celiac axis. There is associated retroperitoneal lymphadenopathy and a 10 cm heterogeneous mass within the left hepatic lobe. This likely represents metastatic disease. This is similar to the prior study. 5. Additional findings as described above. ACT 112: Negative or not required by law. Electronically signed by: Tk Brian M.D. 11/04/2022 2:[address] 11/04/22 12:53 CT chest diagnostic wo con CLINICAL HISTORY: sob, hypotensive, ?liver mets, ARF TECHNIQUE: Multidetector row helical CT of the chest was performed. Coronal and sagittal reformations were obtained. Automated dose lowering techniques and/or adjustment according to patient size were utilized for this exam. Comparison: None available at the time of this dictation. FINDINGS: Lungs and pleura: Moderate bilateral pleural effusions are seen. There is a 4 mm nodule in the right upper lung. Atelectasis is noted. Heart and pericardium: Heart size is normal. No pericardial effusion. Vessels: The pulmonary trunk is enlarged measuring moderate atherosclerotic disease is seen. Mediastinum and len: 10 mm right cardiophrenic lymph node is seen. Chest wall and lower neck: Unremarkable. Abdomen: For findings below the diaphragm, please refer to CT of the abdomen dated the same. Bones: Degenerative changes in the thoracic spine. IMPRESSION: Moderate bilateral pleural effusions with associated atelectasis. There is a right cardiophrenic node as well as a 4 mm nodule in the right upper lung. ACT 112: Negative or not required by law. Electronically signed by: Reid Cadena M.D. 11/04/2022 2:[address] 11/04/22 12:54 CT head/brain wo con CLINICAL HISTORY: 77 years-old Male with ams. Acutely altered mental status TECHNIQUE: Multiple axial CT images of the head were obtained without contrast. A dose lowering technique was utilized adhering to the principles of ALARA. COMPARISON: None. FINDINGS: No acute intracranial hemorrhage, midline shift, intracranial mass, hydrocephalus, territorial ischemia or abnormal extra-axial collection. Involutional changes with white matter hypodensities suggestive of chronic microvascular ischemic disease. Indeterminate ill-defined 1.9 cm hypodense focus within the mid left cerebellum, image 6 series 2. The calvarium is intact. Small right parietal scalp contusion. The paranasal sin uses, mastoid air cells, and middle ear cavities are clear. IMPRESSION: 1. No acute intracranial hemorrhage, midline shift or acute territorial infarct. 2. Indeterminate 1.9 cm hypodense focus of the left cerebellum which may represent an age-indeterminate infarct. This could be correlated with follow-up MRI if there is further clinical concern. ACT 112: Negative or not required by law. The above report was generated using voice recognition software. It may contain grammatical, syntax or spelling errors. Electronically signed by: Rajesh Nascimento M.D. 11/04/2022 2:31 PM I & O Totals 24 Hours 11/04/22 11/05/22 11/06/22 06:59 06:59 06:59 Intake Total 3494.826 / 3494.826 1200.514 / 1200.514 Output Total 406 / 406 Balance 3088.826 / 3088.826 1200.514 / 1200.514 Cumulative 11/04/22 11:45 thru 11/05/22 07:44 Intake Total 4695.340 Output Total 406 Balance 4289.340 RT Ventilator Mngmt (Last Documented) Ventilator Ordered Settings Respiratory Rate 21 11/05/22 05:56 Ventilator - PT Measurements Respiratory Rate 21 Coding Level of Care Code 57521 CRITICAL CARE 1ST 30-74M Additional Critical Care Time Additional 30min Critical Care Time: Yes - 33498 Total Critical Care Time: 80 Diagnoses Shock R57.9 Acute renal failure N17.9 Hypoalbuminemia E88.09 Hypotension I95.9 Elevated troponin level R77.8 Diabetes E11.9 Heart failure I50.9 Afib I48.91 Renal mass of unknown nature N28.89 Liver lesion K76.9 Pleural cavity effusion J90 LORETO (obstructive sleep apnea) G47.33 Hypothyroidism E03.9 Elevated liver enzymes R74.8 Additional Codes Critical Care Time - Additional 30min Critical Care Time: Yes - [id number] ([id number])
[2022-11-05] MEDS ORDERED: LACTULOSE SYRUP 30 GM/45 ML UDP PO SCH (09:00)
[2022-11-05 09:15] LABS: Appearance Urine Cloudy (Clear); Bacteria Urine Automated Negative (Negative); Blood Urine 3+ (Negative); Color Urine Dark Yellow; Glucose Urine UA Negative (Negative); Ketones Urine Trace (Negative); Leukocyte Esterase Urine 2+ (Negative); Nitrite Urine Negative (Negative); Protein Urine 1+ (Negative); RBC Urine Automated >30 /hpf (0-4); Specific Gravity Urine 1.016 (1.000-1.030); Urobilinogen Urine Negative (Negative); WBC Urine Automated >30 /hpf (0-5)
[2022-11-05 09:15] LABS: HCO3 VBG 19 mmol/L; Oxygen Saturation VBG 84.1 %; PCO2 VBG 32 mmHg (38-50); PO2 VBG 55 mmHg; pH VBG 7.37 (7.36-7.41)
[2022-11-05 09:17] LABS: Bilirubin Urine 1+ (Negative)
[2022-11-05 09:32] LABS: Total Protein Urine Random 51.6 mg/dl (0-11.9)
[2022-11-05 09:38] LABS: Creatinine Urine Random 86.7 mg/dl; Protein Creatinine Ratio Urine 0.6 (0-0.2)
--- NOTE | 2022-11-05 09:44 | Nephrology Progress Note ---
Date of Service November 05, 2022 Assessment & Plan (1) Acute renal failure: Plan: * ANGEL/CKD likely due to hypotension and reduced EAV related to hypoalbuminemia/cirrhosis/liver mass and 3rd spacing of volume * Urine sediment reveals only hyaline casts c/w a low perfusion state. No granular ATN casts reported * 11/04/[address] was negative for hydronephrosis and revealed only a small, stable L renal cyst * Patient has high anion gap metabolic acidosis with mild hyperkalemia due to hypotension/sepsis and lactic acidosis * Agree w/ stopping all antihypertensive agents including ROLLY/ARB * Continue ICU care and vasopressor support * Will stop SPA as albumin is now 3.0 * Stop NaHCO3 infusion once 1 L infused * Patient remains on Levophed support. Given hemodynamic instability, patient likely will not tolerate HD at this time. Continue supportive care in ICU setting w/ pressor therapy * Monitor UO, PRP (2) Chronic kidney disease: Plan: * Baseline Cr 1.4 (3) Hypotension: Plan: * Continue ICU and pressor support * Await blood and urine culture results * Prognosis is guarded * Plan of care discussed w/ ICU team this morning. On Levophed, Metronidazole. Awaiting blood and urine culture results. Family has decided on DNR/DNI status and is considering transition to comfort measures (4) Suspected malignant neoplasm: Plan: * 11/04/[address]: 10 cm heterogeneous mass within the L hepatic lobe., 4.5 cm soft tissue mass centered at the celiac axis, thickening within the cecum and ascending colon, moderate pleural effusions, small amount of ascites, moderate body wall edema (5) Elevated troponin level: Plan: * Troponin remains elevated 102.8. Likely ischemia related to sepsis * 11/04/22 Echocardiogram: LVEF 65-70%, moderate concentric LVH, mild TR Admission and Anticipated Discharge Date Admission Date: November 04, 2022 Subjective Mr. Rosas was evaluated in the ICU this morning. He was alert and oriented to self & place. He was breathing comfortably flat in bed on O2 at 2 L/min NC. He denied angina, dyspnea or abdominal pain. Review of Systems Constitutional: no fever Eyes: no worsening vision Ear, Nose, Mouth, Throat: no problem reported Respiratory: no cough and no dyspnea Cardiovascular: no chest pain Gastrointestinal: no abdominal pain, no nausea, no vomiting and no diarrhea/loose stools Physical Exam Constitutional: + ill appearing Eyes: PERRL Neck: trachea midline, no thyromegaly Respiratory: no respiratory distress Cardiovascular: Rate/Rhythm: regular rate and regular rhythm Heart Sounds: no murmur and no cardiac rub Extremities: + edema (3+ LE pitting edema) Gastrointestinal (Abdomen): Inspection/Auscultation: + abdomen distended and + hypoactive bowel sounds Percussion/Palpation: + ascites; abdomen nontender and no guarding Skin: no rashes Neurologic: awake Results & Data Vital Signs (Past 12 Hours) Vital Signs Temp Pulse Resp BP Pulse Ox O2 Del Method 11/05/22 08:00 68 11/05/22 08:00 Room Air 11/05/22 05:56 68 21 105/64 93 11/05/22 05:26 70 19 108/63 94 11/05/22 05:11 66 15 106/58 L 92 11/05/22 04:56 70 20 106/58 L 94 11/05/22 04:41 67 16 105/57 L 94 11/05/22 06:03 36.5 C 11/05/22 04:27 67 17 103/56 L 92 11/05/22 03:56 65 23 104/54 L 94 11/05/22 03:41 64 16 98/58 L 94 11/05/22 03:26 63 20 100/57 L 94 11/05/22 03:11 64 22 109/60 94 11/05/22 02:56 61 20 103/56 L 94 11/05/22 02:41 64 27 H 102/56 L 95 11/05/22 04:31 36.3 C L 11/05/22 03:23 36.3 C L 11/05/22 02:26 61 15 99/59 L 94 11/05/22 02:12 62 22 109/57 L 92 11/05/22 01:56 61 25 H 106/57 L 96 11/05/22 01:41 60 30 H 107/55 L 94 11/05/22 01:27 61 24 119/58 L 11/05/22 01:00 35.5 C L 61 21 95 11/05/22 00:56 35.5 C L 62 25 H 104/62 94 11/05/22 00:46 35.4 C L 60 27 H 96/50 L 94 11/05/22 01:05 Room Air 11/05/22 00:31 35.3 C L 61 16 101/56 L 94 11/05/22 00:16 35.1 C L 58 L 26 H 87/50 L 95 11/05/22 00:02 35.0 C L 58 L 27 H 93/50 L 93 11/04/22 23:46 34.9 C L 56 L 15 102/58 L 94 11/04/22 23:32 34.8 C L 58 L 18 100/52 L 90 11/04/22 23:16 34.8 C L 55 L 13 103/58 L 94 11/04/22 23:02 34.7 C L 52 L 17 101/56 L 94 11/04/22 22:47 34.6 C L 56 L 15 129/64 91 11/04/22 22:31 34.5 C L 49 L 17 95/55 L 95 11/04/22 22:16 34.4 C L 55 L 23 89/56 L 96 11/04/22 22:01 34.3 C L 53 L 22 94/54 L 97 11/04/22 21:47 34.2 C L 54 L 21 102/59 L 94 11/05/22 00:00 53 L 11/04/22 21:45 34.2 C L 57 L 22 96 Laboratory Results Laboratory Tests 11/04/22 11/04/22 11/05/22 12:25 13:53 00:35 WBC Hgb Hct Plt Count Sodium Potassium Chloride Carbon Dioxide 17 L BUN Creatinine 4.24 H Est GFR (Non-Af Amer) Lactate Calcium Total Bilirubin 5.6 H AST 208 H ALT 80 H Alkaline Phosphatase 359 H Albumin 2.3 L Ur Random Sodium 14 11/05/22 11/05/22 11/05/22 03:02 03:02 03:02 WBC 17.63 H Hgb 10.5 L D Hct 31.0 L Plt Count 178 Sodium 137 Potassium 5.0 Chloride 103 Carbon Dioxide 17 L BUN 141 H Creatinine 4.26 H Est GFR (Non-Af Amer) 12.7 Lactate 3.0 H* Calcium 8.2 L Total Bilirubin 5.7 H AST 159 H ALT 59 H Alkaline Phosphatase 242 H Albumin 3.0 L Ur Random Sodium PG Care Time/CCT Total # of Minutes Spent Total Time Spent with Patient: Total time spent is greater than 50% in coordination of care (as documented) at patient's floor/unit and/or counseling patient: Coding Level of Care Code 68087 SUB INP/OBS CARE 350MIN Diagnoses Acute renal failure N17.9 Chronic kidney disease N18.9 Hypotension I95.9 Suspected malignant neoplasm R68.89 Elevated troponin level R77.8
--- NOTE | 2022-11-05 10:00 | Gastrointestinal Consultation ---
Date of Consultation November 05, 2022 Assessment & Plan (1) Liver mass: (2) Colonic thickening: Plan Patient with a complicated recent medical course. IR consulted for possible liver biopsy per history and physical. I had discussed case with Dr. Caceres. Given acute issues with current admission, no plan for a colonoscopy at this time. I discussed the CT findings with the patient and he tells me that he wishes to follow up with his home GI in [place] (Dr. Ascencio) for further work up. He was agreeable with not having any endoscopic procedures at this time. recommend supportive care. Per review of chart, there is some question that patient may prefer being transitioned to palliative care. Supervising Physician Co-Signing Physician Notes Agree with ROCHELLE Simon as above Abd: Soft, NT, ND, +BS Continue current therapy and supportive care No plans for endoscopic evaluation during this hospitalization. Will followup with Dr. Ascencio in [place] upon discharge. History of Present Illness Reason for Consultation: liver lesion / gi cancer work up / colonoscopy Requesting Physician: Shan HUNTLEY Attending Physician: Emi Drake MD History of Present Illness Patient is a 77 year old male with a past medical history of CHF, hypertension, DM 2, CKD with recent admission in [facility] for renal failure requiring dialysis, a fib with RVR, and atrial thrombus who presented to the [facility] ER with complaints of general weakness, poor oral intake, lower extremity edema and fatigue following discharge from [facility] 10 days ago for renal failure with A-fib with RVR and atrial thrombus. He tells me that while hospitalized there that he had imaging showing a liver mass and had elevated tumor markers though I do not see records of this. He tells me he was planned to follow up with his usual GI group in [place] yesterday but but given the symptoms he had to proceed to the ED for evaluation. Currently he is admitted to the ICU with ARF, sepsis, and shock. he did have elevated ammonia yesterday with encephalopathy but today he is alert and oriented. lactulose ordered. He had CT this admission on 11/04/22 thickening of cecum and ascending colon - possibly portal colopathy or nonspecific colitis and mass in hepatic lobe. IR was consulted to discuss liver biopsy for the liver mass. He tells me he had a colonoscopy done about 4 years ago in [place] that was unremarkable. He reports a remote history of colon polyps. patient tells me that he prefers if he has any work up for the GI findings that he prefer it to be done with his home GI once current acute issues resolve. Patient denies any current issues with nausea, vomiting, dysphagia, heartburn, abdominal pain, unintentional weight loss, change in bowels, melena, or bright red blood per rectum. Allergies Allergy/AdvReac Type Severity Reaction Status Date / Time No Known Allergies Allergy Verified 11/01/22 14:16 Home Medications Medication Instructions Recorded Confirmed Type amlodipine 10 mg tablet 10 mg PO DAILY 11/01/22 11/04/22 History aspirin 81 mg tablet,delayed 81 mg PO DAILY 11/01/22 11/04/22 History release (Adult Aspirin Regimen) furosemide 40 mg tablet 40 mg PO DAILY PRN swelling/wt gain 11/01/22 11/04/22 History gabapentin 100 mg capsule 100 mg PO DAILY 11/01/22 11/04/22 History insulin glargine 100 unit/mL (3 20 unit subcut QDB 11/01/22 11/04/22 History mL) subcutaneous pen levothyroxine 25 mcg capsule 25 mcg PO DAILYBB 11/01/22 11/04/22 History rivaroxaban 15 mg tablet (Xarelto) 15 mg PO QPM 11/01/22 11/04/22 History tramadol 50 mg tablet 50 mg PO Q8 PRN arthritic pain 11/01/22 11/04/22 History atorvastatin 40 mg tablet 40 mg PO HS 11/04/22 11/04/22 History clonidine HCl 0.3 mg tablet 0.3 mg PO Q8 PRN SBP 160 & > 11/04/22 11/04/22 History gabapentin 300 mg capsule 300 - 600 mg PO HS 11/04/22 11/04/22 History glipizide 10 mg tablet 10 mg PO QID 11/04/22 11/04/22 History insulin aspart U-100 100 unit/mL See Rx Instructions .Route .COMPLEX 11/04/22 11/04/22 History (3 mL) subcutaneous pen (Novolog FlexPen U-100 Insulin aspart) losartan 100 mg tablet 100 mg PO DAILY 11/04/22 11/04/22 History metoprolol tartrate 50 mg tablet 100 mg PO BID 11/04/22 11/04/22 History Patient History Medical History (Updated 11/05/22 @ 10:11 by Blaze Stern PA-C) Acute renal failure Afib Carpal tunnel syndrome Chronic back pain Diabetes Elevated liver enzymes Heart attack Heart failure High cholesterol Hypertension Hypothyroidism Liver lesion LORETO (obstructive sleep apnea) Pleural cavity effusion Renal mass of unknown nature Shock Surgical History Total knee replacement status Family History Other Heart disease Social History Smoking Status: Former smoker Second Hand Exposure: No; Do You Dip or Chew Tobacco: No; Hx Alcohol Use: No Hx Substance Use: No Preferred Language: Martiniquais Communication Ability: Effective News Anchor Required: No Beliefs That Will Affect Care: None marital status: Current Living Situation: Spouse current occupational status: retired Other Information That Helps Us Care for You: No Feels Safe at Home: Yes Safety Concerns: Feels Safe At This Time Assistive Devices: Cane, CPAP and Walker Review of Systems Review of Systems: All systems reviewed & are unremarkable except as noted in HPI & below Constitutional: + fatigue, + malaise and + weakness Physical Exam Constitutional: WD/WN, vitals as above Respiratory: normal respiratory effort, lungs clear to auscultation Cardiovascular: RRR, no murmur, no edema Gastrointestinal (Abdomen): normal bowel sounds, soft, nontender, no hepatosplenomegaly Skin: no rashes, warm and dry Psychiatric: Orientation: alert and oriented x 3 Results & Data Vital Signs (Past 12 Hours) Vital Signs Temp Pulse Resp BP Pulse Ox O2 Del Method 11/05/22 08:00 68 11/05/22 08:00 Room Air 11/05/22 05:56 68 21 105/64 93 11/05/22 05:26 70 19 108/63 94 11/05/22 05:11 66 15 106/58 L 92 11/05/22 04:56 70 20 106/58 L 94 11/05/22 04:41 67 16 105/57 L 94 11/05/22 06:03 97.7 F 11/05/22 04:27 67 17 103/56 L 92 11/05/22 03:56 65 23 104/54 L 94 11/05/22 03:41 64 16 98/58 L 94 11/05/22 03:26 63 20 100/57 L 94 11/05/22 03:11 64 22 109/60 94 11/05/22 02:56 61 20 103/56 L 94 11/05/22 02:41 64 27 H 102/56 L 95 11/05/22 04:31 97.3 F L 11/05/22 03:23 97.3 F L 11/05/22 02:26 61 15 99/59 L 94 11/05/22 02:12 62 22 109/57 L 92 11/05/22 01:56 61 25 H 106/57 L 96 11/05/22 01:41 60 30 H 107/55 L 94 11/05/22 01:27 61 24 119/58 L 11/05/22 01:00 95.9 F L 61 21 95 11/05/22 00:56 95.9 F L 62 25 H 104/62 94 11/05/22 00:46 95.7 F L 60 27 H 96/50 L 94 11/05/22 01:05 Room Air 11/05/22 00:31 95.5 F L 61 16 101/56 L 94 11/05/22 00:16 95.2 F L 58 L 26 H 87/50 L 95 11/05/22 00:02 95.0 F L 58 L 27 H 93/50 L 93 11/04/22 23:46 94.8 F L 56 L 15 102/58 L 94 11/04/22 23:32 94.6 F L 58 L 18 100/52 L 90 11/04/22 23:16 94.6 F L 55 L 13 103/58 L 94 11/04/22 23:02 94.5 F L 52 L 17 101/56 L 94 11/04/22 22:47 94.3 F L 56 L 15 129/64 91 11/04/22 22:31 94.1 F L 49 L 17 95/55 L 95 11/04/22 22:16 93.9 F L 55 L 23 89/56 L 96 11/04/22 22:01 93.7 F L 53 L 22 94/54 L 97 11/05/22 00:00 53 L PG Care Time/CCT Total # of Minutes Spent Total Time Spent with Patient: Total time spent is greater than 50% in coordination of care (as documented) at patient's floor/unit and/or counseling patient: Coding Level of Care Code 61455 INT INP/OBS CARE 2/55MIN Diagnoses Liver mass R16.0 Colonic thickening K63.9 Time Spent (min) 60
[2022-11-05] MEDS ORDERED: MoRPHine SULFATE 2 MG/ML CARP IV STA ×2 (10:35→20:38)
[2022-11-05] MEDS: NOREPINEPHRINE/D5W 4 MG/250 ML PLCT IV SCH (11:16)
--- NOTE | 2022-11-05 13:46 | XRay Report ---
XR chest 1V portable HISTORY: 77 years-old Male s/p thoracentesis follow-up study in a patient with pleural effusions COMPARISON: Chest CT 11/04/2022 TECHNIQUE: Portable AP view of the chest FINDINGS: Cardiac silhouette is enlarged. Prior median sternotomy. Layering pleural effusions with bibasilar co nsolidation. Pulmonary vascular congestion with interstitial coarsening. No postprocedural pneumothor ax. Bones appear grossly intact. IMPRESSION: 1. Cardiomegaly with suggestion of mild pulmonary edema. 2. Layering pleural effusions with bibasilar consolidation. 3. No postprocedural pneumothorax. ACT 112: Negative or not required by law. The above report was generated using voice recognition software. It may contain grammatical, syntax o r spelling errors. Electronically signed by: Rajesh Nascimento M.D. 11/05/2022 1:45 PM
[2022-11-05 14:40] LABS: Albumin Peritoneal Fluid < 1.5 gm/dl
[2022-11-05 14:40] LABS: Amylase Pleural Fluid 10 U/L
[2022-11-05 14:46] LABS: LDH Peritoneal Fluid 113 U/L; Total Protein Peritoneal Fluid < 3.0 gm/dl
[2022-11-05 14:46] LABS: Glucose Pleural Fluid 127 mg/dl; LDH Pleural Fluid 92 U/L; Total Protein Pleural Fluid < 3.0 gm/dl
[2022-11-05] MEDS ORDERED: CEFEPIME 2,000 MG in SYRINGE 0 ML IV SCH (15:00)
[2022-11-05 15:58] LABS: Appearance Pleural Fluid Turbid; Basophils, Fluid 1 %; Color Pleural Fluid Pink; Eosinophils, Fluid 1 %; Lymphocytes, Fluid 51 %; Mono,Macrophage,Mesothelial 35 %; Neutrophils, Fluid 12 %; RBC Pleural Fluid Auto 48000 /uL; Source Pleural Fluid Right Lung; WBC Pleural Fluid Auto 812 /uL
--- NOTE | 2022-11-05 16:03 | Procedure Note ---
Procedure Note Date of Service November 05, 2022 Note Critical Care Medicine Procedure Date: Noted above Procedure: Paracentesis Pre-procedure Diagnosis: Concern for carcinomatosis, rule out infection Post-procedure Diagnosis: same as above Prior to Procedure: Informed Consent: The risks, benefits, indications, potential complications, and alternatives were explained to the patient and family and informed consent obtained. Attending Staff: Sen Ann DO Resident/Physician Broommaker: Not applicable The identity of the patient was confirmed and a bedside time out was performed. Description of Procedure: Patient positioned, the right lower quadrant of the abdomen was prepped and draped in usual sterile fashion. Dynamic ultrasound guidance was used and appropriate fluid pocket was identified. 2 mL of 1% Lidocaine without epinephrine was used to anesthetize the area. A needle was introduced into the peritoneal space and fluid was removed. Total Fluid Removed: 600 ml Color of Fluid: Dense straw with blood tinge Sent for: Gram Stain, culture, cell count, glucose, protein, cytology Complications: None Estimated blood loss: Negligible Images obtained are saved for permanent record Coding [facility] [place] Procedure Codes (Charges) Indication for Procedure Indication for procedure: 08508 Abdominal paracentesis (diagnostic or therapeutic); with imaging guidance
[2022-11-05 16:05] LABS: Appearance Peritoneal Fluid Turbid; Basophils, Fluid 1 %; Color Peritoneal Fluid Pink; Lymphocytes, Fluid 69 %; Mono,Macrophage,Mesothelial 16 %; Neutrophils, Fluid 14 %; RBC Peritoneal Fluid Auto 46000 /uL; WBC Peritoneal Fluid Auto 977 /ul (0-300)
--- NOTE | 2022-11-05 16:05 | Procedure Note ---
Procedure Note Date of Service November 05, 2022 Note Procedure Date: noted above Procedure: Thoracentesis Pre-procedure Diagnosis: Right-sided pleural effusion, liver mass, concern for metastatic process Post-procedure Diagnosis: same as above Prior to Procedure: Informed Consent: The risks, benefits, indications, potential complications, and alternatives were explained to the patient and family and informed consent obtained. Attending Staff: Sen Ann DO Resident/Physician Residential Finish Carpenter: Not applicable Indications: Patient is 77-year-old male with concern for metastatic pleural effusion, need for diagnostic evaluation The identity of the patient was confirmed and a bedside time out was performed. Description of Procedure: Patient positioned, the right posterior axillary line was prepped with chlorhexidine and draped in usual sterile fashion. Ultrasound guidance was used and appropriate fluid pocket was identified. 4 mL of 1% Lidocaine without epinephrine was used to anesthetize the area. A needle was introduced into the pleural space over the superior margin of the rib with care under dynamic ultrasound guidance and fluid removed and sent for analysis. Next, the 8.5 Fr catheter was advanced into the pleural space over the needle and needle was subsequently removed. A pleural drainage system was connected to the catheter. The catheter was then removed after completion of the drainage. Total Fluid Removed: 500 ml Color of Fluid: Dense straw with blood-tinged Sent for: Gram Stain, culture, cell count, glucose, protein, LDH, cytology Complications: None Estimated blood loss: Trace Images obtained are saved for permanent record Post procedure chest x-ray has been ordered Coding CPT Codes Pulmonary/Thoracic - Pulmonary and Thoracic: 11200 Pleural drainage w/imaging ([id number]) [facility] [place] Codes (Charges) Pulmonary/Thoracic Procedure 1: Pulmonary and Thoracic: 33258 Pleural drainage w/imaging
[2022-11-05 16:26] LABS: Partial Thromboplastin Time 56.5 Seconds (21.0-31.0)
[2022-11-05] MEDS: ATORVASTATIN 40 MG TAB PO SCH (20:41)
--- NOTE | 2022-11-05 20:45 | Hospitalist Progress Note ---
Date of Service November 05, 2022 Assessment & Plan (1) Shock: Plan: 2/2 likely sepsis with UTI, SBP. Possibly also hypovolemic shock from dehydration with ANGEL, hypoalbuminemia from liver failure With leukocytosis, +Procal, abnl UA, elevated lactate, acidotic on abg now corrected as lactate improved Paracentesis today with many WBCs CT CHest no PNA but with effusions tapped, volume overload requiring levophed, IV albumin, IVFs for volume resuscitation -continued stay in ICU on pressors -continue empiric abx with Cefepime and Flagyl (MRSA swab neg) -follow CBC, CMP -Mitchell in place, monitor UOP (2) Peritonitis: Plan: as above, continue Cefpeime, follow cultures (3) Hepatic encephalopathy: Plan: NH3 elevated in 80s, confusion/encephalopathy from this plus hypotension, shock Improving with lactulose, multiple BMs with liver mass, signs of cirrhosis on imaging, ascites with paracentesis today (4) UTI (urinary tract infection): Plan: UA abnormal, follow Ur cxs, BCxs, Mitchell in place continue Cefepime (5) Acute renal failure: Plan: Acute renal failure on CKD No in house prior records available, by report baseline creatinine is around 1.5. 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 With thickening of cecum on CT CA 199: Normal, CEA elevated at 12 suspicious for adenocarcinoma Last colonoscopy 5-6 years ago, no suspicious lesions at that time but was recommended 5-year follow-up -workup after stabilization With elevated LFTs likely from liver mass, obstructive pattern follow CMP, INR, CBC (8) Hypoalbuminemia: Plan: from liver failure giving IV albumin but can now stop as albumin at 3 (9) Elevated troponin level: Plan: demand ischemia, trop 116 and then repeat 102 ECHO without WMAs ECG without ischemic changes (10) Diabetes: Plan: no A1C in records available glucose here controlled continue acccuchecks (11) Afib: Plan: History of Afib On Xarelto While at [facility] the end of September patient did have a MANI from which a atrial thrombus possible/not definitively excluded. TTE was with normal EF, no report of previous MANI avaialble for review in sinus rhythm here on heparin gtt while critically ill (12) LORETO (obstructive sleep apnea): Plan: CPAP hs (13) Hypothyroidism: Plan: TSH here 14 continue LT4 and likely needs increased dose (14) CAD (coronary artery disease), mechoopda coronary artery: Plan: CAD, s/p CABG ECHO here with normal EF, no WMAs -continue atorvastatin -on ASA at home but being held here in case of procedure? 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 He is having a lot of lower back pain which is chronic for him but worsened here with being in the bed. Denies CP, SOB, abd pain. Making minimal urine today. Tele with SB Physical Exam Constitutional: WD/WN, vitals as above Neck: trachea midline, no thyromegaly Respiratory: normal respiratory effort; no cough Auscultation: + diminished lung sounds (at bases); no crackles and no wheezes Cardiovascular: Rate/Rhythm: regular rate and regular rhythm Extremities: + edema (2+ pitting edema) Chest (Breasts): Chest: normal inspection of chest Gastrointestinal (Abdomen): normal bowel sounds, soft, nontender, no hepatosplenomegaly Musculoskeletal: Extremities: extremities normal to inspection; no cyanosis and no clubbing Skin: no rashes, warm and dry Neurologic: moves all extremities and awake; no focal motor deficits Genitourinary: Mitchell with minimal concentrated dark yellow urine Results & Data Results & Data Vital Signs (Past 12 Hours) Vital Signs Temp Pulse Resp BP Pulse Ox O2 Del Method 11/05/22 20:00 64 20 94 11/05/22 19:45 61 13 93 11/05/22 19:42 113/59 L 11/05/22 19:42 62 17 93 11/05/22 19:30 61 14 94 11/05/22 19:15 61 16 93 11/05/22 19:12 119/62 11/05/22 19:12 62 16 94 11/05/22 19:00 62 16 94 11/05/22 18:45 62 18 94 Room Air 11/05/22 18:42 36.7 C 112/60 11/05/22 18:42 62 19 94 11/05/22 20:13 Room Air 11/05/22 18:30 57 L 17 94 11/05/22 18:12 118/59 L 11/05/22 18:12 63 17 94 11/05/22 18:00 66 22 95 11/05/22 17:42 127/65 11/05/22 17:42 66 16 11/05/22 17:30 62 22 94 11/05/22 17:15 62 19 94 11/05/22 17:12 63 18 94 11/05/22 17:12 112/60 11/05/22 17:00 61 13 95 11/05/22 16:45 63 24 95 11/05/22 16:42 115/65 11/05/22 16:42 62 25 H 95 11/05/22 16:30 64 16 96 11/05/22 16:15 63 28 H 97 11/05/22 16:12 115/59 L 11/05/22 16:12 64 21 11/05/22 16:00 62 13 96 11/05/22 15:45 63 21 97 11/05/22 15:42 63 25 H 96 11/05/22 15:42 117/58 L 11/05/22 15:30 62 18 96 11/05/22 15:15 63 25 H 95 11/05/22 15:12 119/59 L 11/05/22 15:12 63 15 89 L 11/05/22 15:08 76/60 L 11/05/22 15:08 65 24 71 L 11/05/22 15:00 63 14 97 11/05/22 14:53 63 20 96 11/05/22 14:53 108/58 L 11/05/22 14:45 65 17 96 11/05/22 14:38 64 20 81 L 11/05/22 14:38 92/44 L 11/05/22 14:30 63 19 96 11/05/22 14:23 101/42 L 11/05/22 14:23 66 18 96 11/05/22 14:20 65 21 94 11/05/22 14:08 96/50 L 11/05/22 14:08 63 24 97 11/05/22 14:00 64 19 97 11/05/22 13:53 63 22 95 11/05/22 13:53 101/42 L 11/05/22 13:45 63 23 96 11/05/22 13:38 64 20 96 11/05/22 13:38 91/50 L 11/05/22 13:30 63 15 95 11/05/22 13:22 99/47 L 11/05/22 13:22 63 20 95 11/05/22 13:21 99/46 L 11/05/22 13:21 64 18 92 11/05/22 13:19 101/54 L 11/05/22 13:19 64 28 H 95 11/05/22 13:18 98/57 L 11/05/22 13:18 64 33 H 95 11/05/22 13:16 63 29 H 95 11/05/22 13:14 63 31 H 94 11/05/22 13:13 63 31 H 94 11/05/22 13:10 63 22 94 11/05/22 13:05 62 22 93 11/05/22 13:00 61 23 94 11/05/22 12:44 109/54 L 11/05/22 12:44 75 18 92 11/05/22 12:30 67 20 94 11/05/22 12:29 102/44 L 11/05/22 12:29 67 20 93 11/05/22 12:00 68 20 93 11/05/22 11:59 97/51 L 11/05/22 11:59 67 20 11/05/22 11:48 97/53 L 11/05/22 11:48 67 19 92 11/05/22 11:30 68 19 92 11/05/22 11:29 70 15 93 11/05/22 11:29 93/53 L 11/05/22 11:20 92/41 L 11/05/22 11:20 67 20 93 11/05/22 11:06 67 22 95 11/05/22 11:06 96/36 L 11/05/22 11:00 67 15 93 11/05/22 10:30 67 21 95 11/05/22 10:29 67 21 93 11/05/22 10:29 104/33 L 11/05/22 10:24 68 23 95 11/05/22 10:00 68 24 94 11/05/22 09:53 102/59 L 11/05/22 09:53 68 22 95 11/05/22 09:30 68 23 96 11/05/22 09:23 101/57 L 11/05/22 09:23 69 22 95 11/05/22 09:00 69 20 94 Laboratory Results CBC, CMP, PTT, cultures reviewed PG Care Time/CCT Total # of Minutes Spent Total Time Spent with Patient: Total time spent is greater than 50% in coordination of care (as documented) at patient's floor/unit and/or counseling patient: Coding Level of Care Code 54415 SUB INP/OBS CARE 3/50MIN Diagnoses Shock R57.9 Peritonitis K65.9 Hepatic encephalopathy K76.82 UTI (urinary tract infection) N39.0 Acute renal failure N17.9 Anemia D64.9 Liver lesion K76.9 Hypoalbuminemia E88.09 Elevated troponin level R77.8 Diabetes E11.9 Afib I48.91 LORETO (obstructive sleep apnea) G47.33 Hypothyroidism E03.9 CAD (coronary artery disease), mechoopda coronary artery I25.10 History of CVA (cerebrovascular accident) Z86.73
[2022-11-05] MEDS ORDERED: MoRPHine SULFATE 2 MG/ML CARP ONE (20:50)
[2022-11-05] MEDS ORDERED: LIDOCAINE 5% 1 PATCH TD STA (21:07)
[2022-11-05 23:36] LABS: Partial Thromboplastin Ratio > 4.9
[2022-11-05 23:51] LABS: Partial Thromboplastin Time > 139.0 Seconds (21.0-31.0)
[2022-11-06] MEDS: HEPARIN SODIUM/DEXTROSE 25,000 UNITS/500 ML BAG IV SCH (01:08)
[2022-11-06] MEDS: PLASMA-LYTE A 1,000 ML IV SCH (01:08)
[2022-11-06 03:24] LABS: Partial Thromboplastin Ratio 4.1
[2022-11-06] MEDS: CEFEPIME 1,000 MG in SYRINGE 0 ML IV SCH ×2 (03:38→16:05)
[2022-11-06 03:40] LABS: Partial Thromboplastin Time 114.7 Seconds (21.0-31.0)
[2022-11-06 05:27] LABS: Basophils # (auto) 0.11 K/uL (0-0.2); Basophils % (auto) 0.8 %; Eosinophils # (auto) 1.14 K/uL (0-0.50); Eosinophils % (auto) 8.1 %; Hematocrit (blood only) 27.2 % (42.0-52.0); Hemoglobin 9.2 g/dl (14.0-18.0); Immature Granulocytes # (auto) 0.13 K/uL (0.01-0.20); Immature Granulocytes % (auto) 0.9 %; Lymphocytes # (auto) 1.84 K/uL (1.2-3.4); Mean Corpuscular Hemoglobin 27.3 pg (25.0-34.0); Mean Corpuscular Hgb Conc 33.8 g/dL (32.0-36.0); Mean Corpuscular Volume 80.7 fL (80.0-100.0); Mean Platelet Volume 12.9 fL (9.4-12.4); Monocytes # (auto) 2.04 K/uL (0.11-0.59); Monocytes % (auto) 14.4 %; Neutrophils % (auto) 62.8 %; Nucleated RBC # (auto) 0.06 K/uL (0-0.12); Nucleated RBC % (auto) 0.4 %; Platelet Count 139 K/uL (130-400); RDW Coefficient of Variation 24.4 % (11.5-14.5); RDW Standard Deviation 66.7 fL (36.4-46.3); Red Blood Count 3.37 M/uL (4.70-6.10); White Blood Count 14.16 K/ul (4.8-10.8)
[2022-11-06 05:52] LABS: Albumin Globulin Ratio 1.1 (0.9-2); Albumin Level 3.2 gm/dl (3.4-5.0); BUN Creatinine Ratio 30.6 (10-20); Bilirubin,Total 5.6 mg/dl (0.2-1.0); Calcium 7.7 mg/dl (8.6-10.3); Creatinine Clr Calc Pharmacy 15.7 ml/min; Est GFR (African American) 13.5 ml/min; Est GFR (Non-African American) 11.7 ml/min; Globulin 2.8 gm/dl (2.5-4.0); Magnesium 2.8 mg/dl (1.7-2.4); Phosphorus 6.5 mg/dl (2.5-4.9); Potassium 4.4 mmol/L (3.5-5.1)
[2022-11-06 05:58] LABS: Anisocytosis Present; Echinocytes 1+; Polychromasia 1+; Target Cells 1+
[2022-11-06] MEDS: metroNIDAZOLE 500 MG/100 ML BAG IV SCH ×3 (06:04→23:35)
[2022-11-06] MEDS: LEVOTHYROXINE SODIUM 25 MCG TABLET PO SCH (06:05)
[2022-11-06 06:12] LABS: Partial Thromboplastin Ratio 2.6
--- NOTE | 2022-11-06 07:12 | Critical Care Progress Note ---
Date of Service November 06, 2022 Assessment & Plan (1) Shock: (2) Acute renal failure: (3) Hypoalbuminemia: (4) Hypotension: (5) Elevated troponin level: (6) Diabetes: (7) Heart failure: (8) Afib: (9) Renal mass of unknown nature: (10) Liver lesion: (11) Pleural cavity effusion: (12) LORETO (obstructive sleep apnea): (13) Hypothyroidism: (14) Elevated liver enzymes: Plan Reason Critically Ill: 77 YOM admitted to ICU for shock (undifferentiated) with organ dysfunction of renals, liver, in the setting of history of unspecified renal lesion and newly identified liver lesion. History of PAF as well as reported Left Atrial Appendage Thrombus Neuro - Grade I encephalopathy: Resolved CAM ICU: Negative Cardiac - Shock: Resolved, Sinus Bradycardia: Resolved, Possible Left Atrial Appendage thrombus, PAF, CAD, HTN, HLD, HFpEF, - Vasopressor support resolved - Left atrial appendage- continue with Heparin infusion -Family confirms MANI performed at [facility], attempting to obtain this information Respiratory - LORETO, Pleural Effusions, Pulmonary nodule - CPAP 15 or AutoPap at night Pleural effusions -Status postthoracentesis 11/05: Awaiting cellblock - Pulmonary nodule associated with 10mm (1.0CM) cardiophrenic node - GI - Liver lesion (10cm) unspecified, Elevated LFTs, Elevated CEA level, Ascites - With hepatic encephalopathy, elevated LFTs, INR 1.4, hyperbilirubinemia and liver mass- - Reportedly previous colonoscopy was ~ 5 years ago- he was scheduled for GI consultation 11/04/22- however this was obviously not completed as admission to hospital - Ascites noted on bedside ultrasound- RLQ -Status post diagnostic paracentesis 11/05 - GI consultation reviewed: No plans for endoscopic evaluation during this admission -Discussed with interventional radiology if cellblock from paracentesis and thoracentesis unremarkable could proceed with IR guided biopsy RENAL/LYTES -ARF, Anion Gap Metabolic Acidosis, -Creatinine worsening however I believe this is nadired -Increased urine output in last 12 to 24 hours - UA with trace blood and trace protein - HOLD ARB - Likely a poor candidate for RETAIL ASSISTANT - Mitchell to gravity - Mitchell to gravity follow UO hourly ENDO - DMII - Hold oral agents - ICU hyperglycemic protocol HEME - Possibly Malignancy - As above- lymphnodes noted retroperitoneal, thoracic cavity- associated with liver lesion, pulmonary nodule, and previous notes of left renal lesion (unspecified) -Continue with heparin therapy given poor renal function and possible biopsy in the next 48 hours ID - Sepsis, UTI: Improving - Patient technically meet sepsis criteria- Leukocytosis, hypothermia, Hypotension- associated with elevated Lactate and Procalcitonin - Source: Urine, GI or both- continue with Cefepime while awaiting cultures LINES/IV ACCESS - PIV, Mitchell Continue use of these lines - Patient and Family (, Daughters, Sons) Verbally consented as delegated to me by Dr. Ann, if Central Access would be needed DVT PROPHYLAXIS - SCDs, Heparin Infusion CODE: DNR/DNI- - stable for down grade out of ICU Updated patient and family of current status and prognosis. Continue with current treatment plan awaiting cytology results from fluid analysis. Admission and Anticipated Discharge Date Admission Date: November 04, 2022 Subjective Feels much better than yesterday no significant complaints Physical Exam Physical Exam: General: Alert. nontoxic. Skin: Warm, dry, Head: Atraumatic Ears, nose, mouth and throat: airway patent Cardiovascular: Normal peripheral perfusion Respiratory: no respiratory distress Gastrointestinal: Non distended Musculoskeletal: No deformity Results & Data Results & Data Vital Signs (Past 12 Hours) Vital Signs Temp Pulse Resp BP Pulse Ox O2 Del Method 11/06/22 03:42 58 L 14 95 11/06/22 03:42 114/58 L 11/06/22 03:30 57 L 18 94 11/06/22 03:12 113/56 L 11/06/22 03:12 56 L 19 95 11/06/22 03:00 57 L 21 95 11/06/22 02:42 56 L 13 94 11/06/22 02:42 111/57 L 11/06/22 02:30 58 L 15 94 11/06/22 02:12 57 L 13 94 Nasal CPAP 11/06/22 02:12 114/60 11/06/22 02:00 56 L 18 94 11/06/22 01:42 55 L 21 94 11/06/22 01:42 108/55 L 11/06/22 01:30 55 L 17 94 11/06/22 01:12 55 L 20 94 11/06/22 01:12 110/56 L 11/06/22 01:00 55 L 17 94 11/06/22 00:42 56 L 17 94 11/06/22 00:42 110/55 L 11/06/22 00:30 56 L 16 93 11/06/22 00:12 57 L 19 94 Nasal CPAP 11/06/22 00:12 107/55 L 11/06/22 00:00 57 L 16 94 11/05/22 23:45 59 L 12 93 11/05/22 23:42 59 L 13 94 Nasal CPAP 11/05/22 23:42 109/55 L 11/06/22 00:03 60 11/05/22 23:30 61 13 93 11/05/22 23:12 36.7 C 109/56 L 11/05/22 23:12 59 L 10 L 93 11/05/22 23:00 36.7 C 66 21 91 CPAP 11/05/22 22:46 112/67 11/05/22 22:46 62 24 11/05/22 22:42 63 25 H 93 11/05/22 22:30 65 20 94 11/05/22 22:15 60 14 91 11/05/22 22:12 113/53 L 11/05/22 22:12 61 12 92 11/05/22 22:00 61 15 93 11/05/22 21:45 60 13 91 11/05/22 21:42 104/61 11/05/22 21:42 59 L 12 92 11/05/22 21:30 59 L 14 92 11/05/22 21:15 60 13 91 11/05/22 21:12 61 17 92 11/05/22 21:12 114/67 11/05/22 21:00 64 21 91 11/05/22 20:45 63 26 H 95 11/05/22 20:42 112/57 L 11/05/22 20:42 62 27 H 94 11/05/22 20:30 62 18 93 11/05/22 20:15 61 14 93 11/05/22 20:12 62 18 93 11/05/22 20:12 111/60 11/05/22 20:00 64 20 94 11/05/22 19:45 61 13 93 11/05/22 19:42 113/59 L 11/05/22 19:42 62 17 93 11/05/22 19:30 61 14 94 11/05/22 19:15 61 16 93 11/05/22 19:12 119/62 11/05/22 19:12 62 16 94 11/05/22 20:13 Room Air Critical Care Results & Data Vital Signs (Past 12 Hours) Vital Signs Temp Pulse Resp BP Pulse Ox O2 Del Method 11/06/22 03:42 58 L 14 95 11/06/22 03:42 114/58 L 11/06/22 03:30 57 L 18 94 11/06/22 03:12 113/56 L 11/06/22 03:12 56 L 19 95 11/06/22 03:00 57 L 21 95 11/06/22 02:42 56 L 13 94 11/06/22 02:42 111/57 L 11/06/22 02:30 58 L 15 94 11/06/22 02:12 57 L 13 94 Nasal CPAP 11/06/22 02:12 114/60 11/06/22 02:00 56 L 18 94 11/06/22 01:42 55 L 21 94 11/06/22 01:42 108/55 L 11/06/22 01:30 55 L 17 94 11/06/22 01:12 55 L 20 94 11/06/22 01:12 110/56 L 11/06/22 01:00 55 L 17 94 11/06/22 00:42 56 L 17 94 11/06/22 00:42 110/55 L 11/06/22 00:30 56 L 16 93 11/06/22 00:12 57 L 19 94 Nasal CPAP 11/06/22 00:12 107/55 L 11/06/22 00:00 57 L 16 94 11/05/22 23:45 59 L 12 93 11/05/22 23:42 59 L 13 94 Nasal CPAP 11/05/22 23:42 109/55 L 11/06/22 00:03 60 11/05/22 23:30 61 13 93 11/05/22 23:12 36.7 C 109/56 L 11/05/22 23:12 59 L 10 L 93 11/05/22 23:00 36.7 C 66 21 91 CPAP 11/05/22 22:46 112/67 11/05/22 22:46 62 24 11/05/22 22:42 63 25 H 93 11/05/22 22:30 65 20 94 11/05/22 22:15 60 14 91 11/05/22 22:12 113/53 L 11/05/22 22:12 61 12 92 11/05/22 22:00 61 15 93 11/05/22 21:45 60 13 91 11/05/22 21:42 104/61 11/05/22 21:42 59 L 12 92 11/05/22 21:30 59 L 14 92 11/05/22 21:15 60 13 91 11/05/22 21:12 61 17 92 11/05/22 21:12 114/67 11/05/22 21:00 64 21 91 11/05/22 20:45 63 26 H 95 11/05/22 20:42 112/57 L 11/05/22 20:42 62 27 H 94 11/05/22 20:30 62 18 93 11/05/22 20:15 61 14 93 11/05/22 20:12 62 18 93 11/05/22 20:12 111/60 11/05/22 20:00 64 20 94 11/05/22 19:45 61 13 93 11/05/22 19:42 113/59 L 11/05/22 19:42 62 17 93 11/05/22 19:30 61 14 94 11/05/22 19:15 61 16 93 11/05/22 20:13 Room Air Lab & Micro Results (Past 24 Hours) RBC 3.37 M/uL (4.70-6.10) L 11/06/22 WBC 14.16 K/ul (4.8-10.8) H 11/06/22 Hgb 9.2 g/dl (14.0-18.0) L 11/06/22 Hct 27.2 % (42.0-52.0) L 11/06/22 MCV 80.7 fL (80.0-100.0) 11/06/22 MCH 27.3 pg (25.0-34.0) 11/06/22 MCHC 33.8 g/dL (32.0-36.0) 11/06/22 RDW Standard Deviation 66.7 fL (36.4-46.3) H 11/06/22 RDW Coefficient of Variation 24.4 % (11.5-14.5) H 11/06/22 Plt Count 139 K/uL (130-400) 11/06/22 MPV 12.9 fL (9.4-12.4) H 11/06/22 Nucleated Red Blood Cells % (auto) 0.4 % 11/06 Nucleated RBC Absolute Count (auto) 0.06 K/uL (0-0.12) 10/19 12/11 Neutrophils (%) (Auto) 62.8 % 11/06/22 Lymphocytes (%) (Auto) 13.0 % 11/06/22 Monocytes # (Auto) 2.04 K/uL (0.11-0.59) H 11/06/22 Eosinophils # (Auto) 1.14 K/uL (0-0.50) H 11/06/22 Immature Granulocyte % (Auto) 0.9 % 11/06/22 Neutrophils # (Auto) 8.90 K/uL (1.40-6.50) H 11/06/22 Lymphocytes # (Auto) 1.84 K/uL (1.2-3.4) 11/06/22 Monocytes # (Auto) 2.04 K/uL (0.11-0.59) H 11/06/22 Eosinophils # (Auto) 1.14 K/uL (0-0.50) H 11/06/22 Basophils # (Auto) 0.11 K/uL (0-0.2) 11/06/22 Immature Granulocyte # (Auto) 0.13 K/uL (0.01-0.20) 3 Polychromasia 1+ 11/06/22 Echinocytes 1+ 11/06/22 Anisocytosis Present 11/06/22 Target Cells 1+ 11/06/22 Na 141 mmol/L (136-145) 11/06/22 K 4.4 mmol/L (3.5-5.1) 11/06/22 Cl 105 mmol/L (98-107) 11/06/22 CO2 19 mmol/L (21-32) L 11/06/22 Anion Gap 17 (3-11) H 11/06/22 BUN 140 mg/dl (6-23) H 11/06/22 Creatinine 4.57 mg/dl (0.6-1.4) H* 11/06/22 Estimated GFR ( Amer) 13.5 ml/min 11/06/22 Estimated GFR (Non-Af Amer) 11.7 ml/min 11/06/22 BUN/Creatinine Ratio 30.6 (10-20) H 11/06/22 Glu 114 mg/dl (70-99(Fasting)) H 11/06/22 Ca 7.7 mg/dl (8.6-10.3) L 11/06/22 Phosphorus Level 6.5 mg/dl (2.5-4.9) H 11/06/22 Total Bilirubin 5.6 mg/dl (0.2-1.0) H 11/06/22 AST 123 U/L (13-39) H 11/06/22 ALT 49 U/L (7-52) 11/06/22 Alkaline Phosphatase 184 U/L (34-104) H 11/06/22 TP 6.0 gm/dl (6.0-8.3) 11/06/22 Albumin 3.2 gm/dl (3.4-5.0) L 11/06/22 Globulin 2.8 gm/dl (2.5-4.0) 11/06/22 Albumin/Globulin Ratio 1.1 (0.9-2) 11/06/22 Lactate Dehydrogenase 372 U/L (86-244) H 11/05/22 Mg 2.8 mg/dl (1.7-2.4) H 11/06/22 04:33 Calcium Level 7.7 mg/dl (8.6-10.3) L 11/06/22 04:33 Microbiology 11/05/22 13:17 Gram Stain - Final Pleural Fluid,Right 11/05/22 13:20 Gram Stain - Final Abdomen 11/04/22 14:19 Aerobic Blood Culture - Preliminary Blood No growth in Aerobic bottle after 24 hours. Anaerobic Blood Culture - Preliminary No growth in Anaerobic bottle after 24 hours. 11/04/22 14:19 Aerobic Blood Culture - Preliminary Blood No growth in Aerobic bottle after 24 hours. Anaerobic Blood Culture - Preliminary No growth in Anaerobic bottle after 24 hours. 11/04/22 13:11 Urine Culture - Final Urine,Straight Cath Three types or organisms present, all moderate counts probable skin catrachito. No further identifications or sensitivities to follow. 11/04/22 20:56 Blood Parasites Smear - Final Blood Diagnostic Findings (Past 24 Hours) Chest X-Ray 11/05/22 13:17 XR chest 1V portable HISTORY: 77 years-old Male s/p thoracentesis follow-up study in a patient with pleural effusions COMPARISON: Chest CT 11/04/2022 TECHNIQUE: Portable AP view of the chest FINDINGS: Cardiac silhouette is enlarged. Prior median sternotomy. Layering pleural effusions with bibasilar consolidation. Pulmonary vascular congestion with interstitial coarsening. No postprocedural pneumothorax. Bones appear grossly intact. IMPRESSION: 1. Cardiomegaly with suggestion of mild pulmonary edema. 2. Layering pleural effusions with bibasilar consolidation. 3. No postprocedural pneumothorax. ACT 112: Negative or not required by law. The above report was generated using voice recognition software. It may contain grammatical, syntax or spelling errors. Electronically signed by: Rajesh Nascimento M.D. 11/05/2022 1:45 PM I & O Totals 24 Hours 11/05/22 11/06/22 11/07/22 06:59 06:59 06:59 Intake Total 3494.826 / 3494.826 5564.071 / 5564.071 100 / 100 Output Total 406 / 409 362 / 362 Balance 3088.826 / 3085.826 5202.071 / 5202.071 100 / 100 Cumulative 11/04/22 11:45 thru 11/06/22 07:04 Intake Total 9158.897 Output Total 768 Balance 8390.897 RT Ventilator Mngmt (Last Documented) Ventilator Ordered Settings Respiratory Rate 14 11/06/22 03:42 Ventilator - PT Measurements Respiratory Rate 14 Coding Level of Care Code 51051 SUB INP/OBS CARE 3/50MIN Diagnoses Shock R57.9 Acute renal failure N17.9 Hypoalbuminemia E88.09 Hypotension I95.9 Elevated troponin level R77.8 Diabetes E11.9 Heart failure I50.9 Afib I48.91 Renal mass of unknown nature N28.89 Liver lesion K76.9 Pleural cavity effusion J90 LORETO (obstructive sleep apnea) G47.33 Hypothyroidism E03.9 Elevated liver enzymes R74.8
[2022-11-06] MEDS: ALBUMIN 25% 25 GM/100 ML VIAL IV SCH (08:33)
[2022-11-06 08:37] LABS: Urea Nitrogen, Random Urine 533 mg/dL
[2022-11-06] MEDS: ICU Protocol for HYPERglycemia SCH ×2 (09:13→11:34)
[2022-11-06] MEDS: LANTUS PER UNIT CHARGE SQ SCH (09:15)
[2022-11-06 11:02] LABS: HBSAG NON-REACTIVE (NON-REACTIVE); Hepatitis A Antibody IgM NON-REACTIVE (NON-REACTIVE); Hepatitis B Core Antibody IgM NON-REACTIVE (NON-REACTIVE)
--- NOTE | 2022-11-06 12:00 | Nephrology Progress Note ---
Date of Service November 06, 2022 Assessment & Plan (1) Acute kidney injury: (2) Anemia: (3) UTI (urinary tract infection): (4) Liver mass: Plan 77 y o m with PMH of stage 3a CKD, b/l cr 1.4, HTN, DM, ASCVD s/p CABG, hyperlipidemia, prior L cerebellar infarct, LORETO, hypothyroidism. His baseline creatinine has been 1.4, admit to the hospital with sepsis with UTI and ANGEL after presented with generalized weakness. CT abdomen was negative for postrenal obstruction. Urinalysis showed evidence of urinary tract infection, no proteinuria. He was recently admitted from 10/10/22 - 10/17/22 at [facility] for evaluation of vertigo/orthostatic hypotension and ANGEL/CKD, cr peaked at 3.0 but improved to 1.9 at the time of discharge with IV hydration. During hospitalization he was noted to have A-fib, heart rate was controlled w/ beta luanne and amiodarone therapy. 2D echo showed left atrial appendage and cardioversion was held and started on Rivaroxaban therapy. Abdominal CT was performed to look for a potential source of infection and rising LFT's, showed 10 cm liver mass, a lesion involving the celiac axis and a questionable lesion involving one of his kidneys. CEA + suggestive of possible adenocarcinoma.He was discharged for outpatient Oncology and Urology evaluation.At home he became increasingly weak and brought to ER.In ER BP 79/52, WBC 15.6, Hgb 13.4, lactate 2.8, Cr 4.07, K 5.3, CO2 20, T. bili 5.6, AST 208, alk phos 359, albumin 2.3, procalcitonin 1.86, THS 14, troponin 102.8, BNP 694, urine microscopy w/ 1-5 hyaline casts. He was on pressor support until last night but blood pressure improved and has been off of pressor currently. Urine output slightly improved this morning. BUN/creatinine and electrolytes staying relatively stable. -- Continue to monitor with hemodynamic support, as blood pressure relatively stable and urine output started to improve, we might see improvement in renal function. No acute indication for renal replacement therapy at this time. -- Dose medications for eGFR less than 30 Will follow Admission and Anticipated Discharge Date Admission Date: November 04, 2022 Subjective Mr. Rosas was seen and evaluated in ICU with his family at bedside. Overall he feels well, denies any specific symptoms. No shortness of breath. Has been off of pressor blood pressure slightly improved. Urine output still low but started to improve. Creatinine staying relatively stable, has mild metabolic acidosis, potassium normal. Review of Systems Review of Systems: Detailed review of system was negative except mentioned above. Physical Exam Constitutional: WD/WN, vitals as above + ill appearing; no acute distress Eyes: + anicteric sclerae Neck: normal visual inspection Respiratory: no respiratory distress Auscultation: lungs clear to auscultation bilaterally Cardiovascular: Rate/Rhythm: regular rate and regular rhythm Heart Sounds: normal S1 and normal S2 Extremities: + edema Skin: no rashes, warm and dry Neurologic: no focal motor deficits Psychiatric: Orientation: alert and oriented x 3 Results & Data Vital Signs (Past 12 Hours) Vital Signs Pulse Resp BP Pulse Ox O2 Del Method 11/06/22 11:12 62 18 95 11/06/22 11:12 100/51 L 11/06/22 11:00 63 19 96 11/06/22 10:42 64 18 96 11/06/22 10:42 105/56 L 11/06/22 10:12 63 25 H 95 11/06/22 10:12 105/49 L 11/06/22 10:00 65 23 95 11/06/22 09:42 63 20 94 11/06/22 09:42 104/54 L 11/06/22 11:36 62 11/06/22 09:12 63 24 95 11/06/22 09:12 103/48 L 11/06/22 09:00 62 24 95 11/06/22 08:42 61 16 93 11/06/22 08:42 89/50 L 11/06/22 08:13 111/58 L 11/06/22 08:13 68 16 94 11/06/22 08:00 63 18 96 11/06/22 07:43 67 12 95 11/06/22 07:43 116/55 L 11/06/22 07:12 65 14 88 L 11/06/22 07:12 101/58 L 11/06/22 07:00 62 23 87 L 11/06/22 06:45 62 19 89 L 11/06/22 08:00 58 L 11/06/22 03:42 58 L 14 95 11/06/22 03:42 114/58 L 11/06/22 03:30 57 L 18 94 11/06/22 03:12 113/56 L 11/06/22 03:12 56 L 19 95 11/06/22 03:00 57 L 21 95 11/06/22 02:42 56 L 13 94 11/06/22 02:42 111/57 L 11/06/22 02:30 58 L 15 94 11/06/22 02:12 57 L 13 94 Nasal CPAP 11/06/22 02:12 114/60 11/06/22 02:00 56 L 18 94 11/06/22 01:42 55 L 21 94 11/06/22 01:42 108/55 L 11/06/22 01:30 55 L 17 94 11/06/22 01:12 55 L 20 94 11/06/22 01:12 110/56 L 11/06/22 01:00 55 L 17 94 11/06/22 00:42 56 L 17 94 11/06/22 00:42 110/55 L 11/06/22 00:30 56 L 16 93 11/06/22 00:12 57 L 19 94 Nasal CPAP 11/06/22 00:12 107/55 L 11/06/22 00:00 57 L 16 94 11/06/22 00:03 60 PG Care Time/CCT Total # of Minutes Spent Total Time Spent with Patient: Total time spent is greater than 50% in coordination of care (as documented) at patient's floor/unit and/or counseling patient: Coding Level of Care Code 15446 SUB INP/OBS CARE 3/50MIN Diagnoses Acute kidney injury N17.9 Anemia D64.9 UTI (urinary tract infection) N39.0 Liver mass R16.0
[2022-11-06] MEDS ORDERED: ACETAMINOPHEN 325 MG TAB PO PRN (12:19)
[2022-11-06] MEDS: ASPIRIN 81 MG ECTAB PO SCH (12:27)
[2022-11-06] MEDS: GABAPENTIN 100 MG CAP PO SCH (12:27)
[2022-11-06] MEDS: HYDROmorphone INJ 0.5 MG/0.5 ML SYR IV PRN ×2 (12:28→17:26)
[2022-11-06 13:31] LABS: Partial Thromboplastin Ratio 4.3
[2022-11-06 13:33] LABS: Partial Thromboplastin Time 122.4 Seconds (21.0-31.0)
[2022-11-06] MEDS ORDERED: FUROSEMIDE 40 MG/4 ML VIAL IV ONE (17:45)
[2022-11-06] MEDS ORDERED: FUROSEMIDE 10 MG/ML 10 ML VIAL IV ONE (17:45)
--- NOTE | 2022-11-06 19:04 | Hospitalist Progress Note ---
Date of Service November 06, 2022 Assessment & Plan (1) Shock: Plan: 2/2 likely sepsis with UTI, SBP. Possibly also hypovolemic shock from dehydration with ANGEL, hypoalbuminemia from liver failure With leukocytosis, +Procal, abnl UA, elevated lactate, acidotic on abg now corrected as lactate improved Paracentesis with many WBCs, culture pending CT CHest no PNA but with effusions tapped, pleural fluid cultures pending, no pH performed, volume overload requiring levophed, IV albumin, IVFs for volume resuscitation-weaned off Levophed this morning but with soft blood pressures and receiving high doses of IV Lasix for renal failure, placed back on Levophed through the night -continued stay in ICU on pressors -continue empiric abx with Cefepime and Flagyl (MRSA swab neg) -follow CBC, CMP -Mitchell in place, monitor UOP-oliguric -Holding home antihypertensives (2) Acute renal failure: Plan: Acute renal failure on CKD No in house prior records available, by report baseline creatinine is around 1.5. 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, with oliguria worsening today -appreciate Nephrology consult-cannot dialyze due to hypotension -Give Lasix 120 mg IV x1 -no obstruction on CT, maintain Mitchell -follow BMP, UOP -continue IVFs, pressors (3) Peritonitis: Plan: as above, continue Cefepime, Flagyl, follow cultures (4) Hepatic encephalopathy: Plan: NH3 elevated in 80s, confusion/encephalopathy from this plus hypotension, shock Improving with lactulose, multiple BMs with liver mass, signs of cirrhosis on imaging, ascites with paracentesis performed (5) UTI (urinary tract infection): Plan: UA abnormal, follow Ur cxs-mixed catrachito, BCxs, Mitchell in place continue Cefepime empirically (6) Anemia: Plan: hgb dropped to 9 from 13, likely somewhat hemodilution but also some chronic disease follow CBC no bleeding obvious but watch while on heparin gtt (7) Liver lesion: Plan: Suspected Metastatic- 10cm L hepatic lobe mass, 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 With thickening of cecum on CT CA 199: Normal, CEA elevated at 12 suspicious for adenocarcinoma Last colonoscopy 5-6 years ago, no suspicious lesions at that time but was recommended 5-year follow-up -workup after stabilization With elevated LFTs likely from liver mass, obstructive pattern follow CMP, CBC (8) Hypoalbuminemia: Plan: from liver failure Received IV albumin but stopped as albumin at 3 (9) Elevated troponin level: Plan: demand ischemia, trop 116 and then repeat 102 ECHO without WMAs ECG without ischemic changes (10) Diabetes: Plan: no A1C in records available glucose here controlled continue acccuchecks (11) Afib: Plan: History of Afib On Xarelto While at [facility] the end of September patient did have a MANI from which a atrial thrombus possible/not definitively excluded. TTE was with normal EF, no report of previous MANI avaialble for review in sinus rhythm here on heparin gtt while critically ill (12) LORETO (obstructive sleep apnea): Plan: CPAP hs (13) Hypothyroidism: Plan: TSH here 14 continue LT4 and likely needs increased dose (14) CAD (coronary artery disease), [place] coronary artery: Plan: CAD, s/p CABG ECHO here with normal EF, no WMAs -continue atorvastatin -on ASA at home but being held here in case of procedure? Restart when possible -on heparin gtt -holding metoprolol for hypotension and bradycardia on admission (15) History of CVA (cerebrovascular accident): Plan: CVA History of old left cerebellar infarct with residual dizziness -ASA on hold -continue atorvastatin Plan DVT proph-heparin gtt Dispo-critically ill, palliative discussions had with ICU doctor, guarded prognosis, continued stay ICU DNR/DNI Admission and Anticipated Discharge Date Admission Date: November 04, 2022 Subjective Patient had severe lower back pain today which is chronic for him. Received a dose of IV Dilaudid 0.25 mg. When I saw him after that he was very lethargic, often falling asleep in conversation. He denies shortness of breath or chest pain or other issues. Moved his bowels again today. Daughter and granddaughter at the bedside. Discussed care with ICU attending in the morning and downgraded him. He made 125 mL of urine in 11 hours through the day. I discussed the case with nephrology and they recommended giving Lasix 120 mg. Blood pressures were soft. He will be upgraded back to ICU status and placed back on Levophed. Telemetry reviewed and with sinus bradycardia and normal sinus rhythm Physical Exam Constitutional: WD/WN, vitals as above + ill appearing and + lethargic Neck: trachea midline, no thyromegaly Respiratory: normal respiratory effort; no cough Auscultation: + diminished lung sounds (at bases); no crackles and no wheezes Cardiovascular: Rate/Rhythm: regular rate and regular rhythm Extremities: + edema (2+ pitting edema) Chest (Breasts): Chest: normal inspection of chest Gastrointestinal (Abdomen): normal bowel sounds, soft, nontender, no hepatosplenomegaly Musculoskeletal: Extremities: extremities normal to inspection; no cyanosis and no clubbing Skin: no rashes, warm and dry Neurologic: moves all extremities; no focal motor deficits Genitourinary: Mitchell catheter in place with minimal concentrated yellow urine Results & Data Results & Data Vital Signs (Past 12 Hours) Vital Signs Temp Pulse Resp BP Pulse Ox 11/06/22 17:45 36.4 C L 71 23 93 11/06/22 17:30 69 20 94 11/06/22 17:15 70 23 97 11/06/22 17:12 69 24 97 11/06/22 17:12 92/48 L 11/06/22 17:00 71 18 96 11/06/22 16:12 67 21 96 11/06/22 16:12 96/49 L 11/06/22 16:00 71 18 97 11/06/22 15:12 85/55 L 11/06/22 15:12 68 16 96 11/06/22 15:00 68 22 96 11/06/22 14:12 66 15 94 11/06/22 14:12 94/56 L 11/06/22 14:00 66 18 96 11/06/22 13:12 66 19 96 11/06/22 13:12 99/55 L 11/06/22 13:00 65 18 96 11/06/22 12:12 64 22 96 11/06/22 12:12 95/57 L 11/06/22 12:00 65 17 95 11/06/22 11:42 101/55 L 11/06/22 11:42 65 19 95 11/06/22 16:00 62 11/06/22 11:12 62 18 95 11/06/22 11:12 100/51 L 11/06/22 11:00 63 19 96 11/06/22 10:42 64 18 96 11/06/22 10:42 105/56 L 11/06/22 10:12 63 25 H 95 11/06/22 10:12 105/49 L 11/06/22 10:00 65 23 95 11/06/22 09:42 63 20 94 11/06/22 09:42 104/54 L 11/06/22 11:36 62 11/06/22 09:12 63 24 95 11/06/22 09:12 103/48 L 11/06/22 09:00 62 24 95 11/06/22 08:42 61 16 93 11/06/22 08:42 89/50 L 11/06/22 08:13 111/58 L 11/06/22 08:13 68 16 94 11/06/22 08:00 63 18 96 11/06/22 07:43 67 12 95 11/06/22 07:43 116/55 L 11/06/22 07:12 65 14 88 L 11/06/22 07:12 101/58 L 11/06/22 08:00 58 L Laboratory Results CBC, CMP, phosphorus, blood cultures, pleural fluid culture, ascites culture all reviewed PG Care Time/CCT Total # of Minutes Spent Total Time Spent with Patient: Total time spent is greater than 50% in coordination of care (as documented) at patient's floor/unit and/or counseling patient: Coding Level of Care Code 94972 SUB INP/OBS CARE 3/50MIN Diagnoses Shock R57.9 Acute renal failure N17.9 Peritonitis K65.9 Hepatic encephalopathy K76.82 UTI (urinary tract infection) N39.0 Anemia D64.9 Liver lesion K76.9 Hypoalbuminemia E88.09 Elevated troponin level R77.8 Diabetes E11.9 Afib I48.91 LORETO (obstructive sleep apnea) G47.33 Hypothyroidism E03.9 CAD (coronary artery disease), [place] coronary artery I25.10 History of CVA (cerebrovascular accident) Z86.73
[2022-11-06] MEDS ORDERED: STAT IV Infusion **Titration per Protocol STA (19:20)
--- NOTE | 2022-11-06 19:26 | Communication Note ---
Date of Service: November 06, 2022 Patient back to ICU service this evening for continued need for vasopressor support secondary to hypotension and low urine ouput. Patient did receive 120mg of Lasix earlier. Hopeful that increasing MAP will aid in diuresing and renal recovery. Notes reviewed, discussed with Medical Attending and ICU Attending. See progress note from earlier today. No change in physical exam. Continuation of care. No charge- note for communication purposes. Shan HUNTLEY (ACN-) Coding Level of Care Code None
[2022-11-06] MEDS: NOREPINEPHRINE/D5W 4 MG/250 ML PLCT IV SCH (19:38)
[2022-11-06] MEDS: ATORVASTATIN 40 MG TAB PO SCH (22:07)
[2022-11-06] MEDS ORDERED: CARBOHYDRATES FOR HYPOGLYCEMIA PO PRN (23:04)
[2022-11-06] MEDS: INSULIN ASPART PER UNIT CHARGE SC SCH (23:35)
[2022-11-06 23:42] LABS: Partial Thromboplastin Ratio 2.9
[2022-11-07] MEDS: HEPARIN SODIUM/DEXTROSE 25,000 UNITS/500 ML BAG IV SCH ×2 (00:10→16:22)
[2022-11-07] MEDS ORDERED: CEFEPIME 1,000 MG in SYRINGE 0 ML IV SCH (06:30)
[2022-11-07 06:35] LABS: Bilirubin,Total 6.2 mg/dl (0.2-1.0); Calcium 7.5 mg/dl (8.6-10.3); Creatinine Clr Calc Pharmacy 14.5 ml/min; Est GFR (African American) 11.9 ml/min; Est GFR (Non-African American) 10.3 ml/min; Magnesium 2.8 mg/dl (1.7-2.4); Phosphorus 6.5 mg/dl (2.5-4.9); Potassium 4.2 mmol/L (3.5-5.1)
[2022-11-07] MEDS: LEVOTHYROXINE SODIUM 25 MCG TABLET PO SCH (06:40)
[2022-11-07 06:42] LABS: Hematocrit (blood only) 32.3 % (42.0-52.0); Mean Corpuscular Hemoglobin 28.1 pg (25.0-34.0); Mean Corpuscular Hgb Conc 34.1 g/dL (32.0-36.0); Mean Corpuscular Volume 82.6 fL (80.0-100.0); Nucleated RBC # (auto) 0.13 K/uL (0-0.12); Nucleated RBC % (auto) 0.8 %; Platelet Count 170 K/uL (130-400); RDW Coefficient of Variation 24.8 % (11.5-14.5); RDW Standard Deviation 67.6 fL (36.4-46.3); Red Blood Count 3.91 M/uL (4.70-6.10); White Blood Count 15.88 K/ul (4.8-10.8)
[2022-11-07 06:49] LABS: Acanthocytes 1+; Basophils # (auto) 0.12 K/uL (0-0.2); Basophils % (auto) 0.8 %; Echinocytes 2+; Eosinophils # (auto) 0.94 K/uL (0-0.50); Eosinophils % (auto) 5.9 %; Immature Granulocytes # (auto) 0.16 K/uL (0.01-0.20); Lymphocytes # (auto) 1.95 K/uL (1.2-3.4); Lymphocytes % (auto) 12.3 %; Monocytes # (auto) 2.31 K/uL (0.11-0.59); Monocytes % (auto) 14.5 %; Neutrophils % (auto) 65.5 %; Polychromasia 1+; Target Cells 1+
[2022-11-07 06:51] LABS: Anisocytosis Present
[2022-11-07 06:54] LABS: BUN Creatinine Ratio 28.6 (10-20)
[2022-11-07] MEDS: NOREPINEPHRINE/D5W 4 MG/250 ML PLCT IV SCH ×2 (07:11→16:21)
[2022-11-07] MEDS: metroNIDAZOLE 500 MG/100 ML BAG IV SCH ×2 (07:11→16:20)
--- NOTE | 2022-11-07 07:12 | Critical Care Progress Note ---
Date of Service November 07, 2022 Assessment & Plan (1) Shock: (2) Acute renal failure: (3) Hypoalbuminemia: (4) Hypotension: (5) Elevated troponin level: (6) Diabetes: (7) Heart failure: (8) Afib: (9) Renal mass of unknown nature: (10) Liver lesion: (11) Pleural cavity effusion: (12) LORETO (obstructive sleep apnea): (13) Hypothyroidism: (14) Elevated liver enzymes: Plan Reason Critically Ill: 77 YOM admitted to ICU for shock (undifferentiated) with organ dysfunction of renals, liver, in the setting of history of unspecified renal lesion and newly identified liver lesion. History of PAF as well as reported Left Atrial Appendage Thrombus Neuro - Grade I encephalopathy: Resolved CAM ICU: Negative Cardiac - Shock: Resolved, Sinus Bradycardia: Resolved, Possible Left Atrial Appendage thrombus, PAF, CAD, HTN, HLD, HFpEF, - Vasopressor support requiring Levophed - Left atrial appendage- continue with Heparin infusion -Family confirms MANI performed at [facility], attempting to obtain this information Respiratory - LORETO, Pleural Effusions, Pulmonary nodule - CPAP 15 or AutoPap at night Pleural effusions -Status postthoracentesis 11/05: Awaiting cellblock - Pulmonary nodule associated with 10mm (1.0CM) cardiophrenic node - GI - Liver lesion (10cm) unspecified, Elevated LFTs, Elevated CEA level, Ascites - With hepatic encephalopathy, elevated LFTs, INR 1.4, hyperbilirubinemia and liver mass- - Reportedly previous colonoscopy was ~ 5 years ago- he was scheduled for GI consultation 11/04/22- however this was obviously not completed as admission to hospital - Ascites noted on bedside ultrasound- RLQ -Status post diagnostic paracentesis 11/05 - GI consultation reviewed: No plans for endoscopic evaluation during this admission -Discussed with interventional radiology if cellblock from paracentesis and thoracentesis unremarkable could proceed with IR guided biopsy RENAL/LYTES -ARF, Anion Gap Metabolic Acidosis, -Creatinine worsening -No significant urine output with high-dose Lasix - UA with trace blood and trace protein Discussed with nephrology not a candidate for renal replacement therapy not in line with long-term goals - Mitchell to gravity - Mitchell to gravity follow UO hourly ENDO - DMII - Hold oral agents - ICU hyperglycemic protocol HEME - Possibly Malignancy - As above- lymphnodes noted retroperitoneal, thoracic cavity- associated with liver lesion, pulmonary nodule, and previous notes of left renal lesion (unspecified) -Continue with heparin therapy given poor renal function ID - Sepsis, UTI: Improving - Patient technically meet sepsis criteria- Leukocytosis, hypothermia, Hypotension- associated with elevated Lactate and Procalcitonin - Source: Urine, GI or both- continue with Cefepime while awaiting cultures LINES/IV ACCESS - PIV, Mitchell Continue use of these lines - Patient and Family (, Daughters, Sons) Verbally consented as delegated to me by Dr. Ann, if Central Access would be needed DVT PROPHYLAXIS - SCDs, Heparin Infusion CODE: DNR/DNI- Additional family and repeat meeting with both sons and and patient at bedside. All in agreement that patient would not want to undergo renal replacement therapy. Discontinuing active life-sustaining treatments. Focusing on comfort. Food and water as needed. Patient is critically ill and transitioning to palliative. Admission and Anticipated Discharge Date Admission Date: November 04, 2022 Supervising Physician Co-Signing Physician Notes I have personally spent 45 minutes of critical care time in the direct management of this patient. This is a life/limb threatening event. This includes time spent evaluating patient, direct bedside care, chart review, placing orders, interpretation of diagnostic studies, discussion with consultants, patient, and/or family members regarding treatment decisions, as well as other required patient management activities. This time is exclusive of all separately billable procedures, and teaching time and separate from and in addition to any other critical care service time. Subjective Patient complaining of pain between his buttocks. Had extensive discussion with additional family members present at the bedside, would like to focus on comfort, feels he is reaching end-stage and desires to minimize interventions and active life-sustaining treatments. Physical Exam Physical Exam: General: Alert. nontoxic. Skin: Warm, dry, Head: Atraumatic Ears, nose, mouth and throat: airway patent Cardiovascular: Normal peripheral perfusion Respiratory: no respiratory distress Gastrointestinal: Non distended Musculoskeletal: No deformity Results & Data Results & Data Vital Signs (Past 12 Hours) Vital Signs Temp Pulse Resp BP Pulse Ox O2 Del Method 11/07/22 06:11 73 22 99/54 L 94 11/07/22 06:11 99/54 L 11/07/22 05:41 80 17 99/51 L 95 11/07/22 05:11 75 13 112/53 L 93 11/07/22 04:41 76 14 103/54 L 94 11/07/22 04:11 76 18 98/55 L 94 11/07/22 03:46 76 22 101/53 L 94 11/07/22 03:41 75 16 99/49 L 93 11/07/22 03:11 77 16 91/54 L 93 11/07/22 02:41 78 15 101/55 L 93 11/07/22 02:34 85 18 97/57 L 94 11/07/22 02:11 93/50 L 11/07/22 01:41 73 12 102/51 L 93 11/07/22 01:11 77 17 101/53 L 92 11/07/22 00:41 76 24 96/50 L 11/07/22 00:11 75 14 97/52 L 91 11/06/22 23:41 76 18 98/54 L 92 11/06/22 23:11 75 13 95/53 L 92 11/06/22 22:41 94/53 L 11/06/22 22:26 77 18 103/55 L 89 L 11/06/22 22:11 79 23 100/53 L 94 11/06/22 22:09 80 25 H 97/51 L 94 11/07/22 01:30 36.5 C 11/06/22 21:05 36.6 C 11/07/22 00:00 75 11/06/22 21:00 Nasal CPAP 11/06/22 21:56 77 20 89/48 L 94 11/06/22 21:41 78 25 H 103/52 L 94 11/06/22 21:26 76 20 101/48 L 94 11/06/22 21:11 77 25 H 108/55 L 95 11/06/22 21:00 77 20 103/53 L 96 11/06/22 20:26 76 24 114/60 93 11/06/22 20:11 74 18 104/58 L 92 11/06/22 19:56 73 20 116/56 L 95 11/06/22 19:41 73 14 85/49 L 92 11/06/22 19:26 75 24 89/47 L 92 Critical Care Results & Data Vital Signs (Past 12 Hours) Vital Signs Temp Pulse Resp BP Pulse Ox O2 Del Method 11/07/22 11:41 77/43 L 11/07/22 11:41 91 H 17 90 11/07/22 11:11 93/45 L 11/07/22 11:11 87 19 94 11/07/22 11:00 86 24 94 11/07/22 10:41 106 H 20 93 11/07/22 10:41 91/58 L 11/07/22 10:11 98/60 L 11/07/22 10:11 83 25 H 11/07/22 10:00 84 25 H 93 11/07/22 09:41 85 17 92 11/07/22 09:41 107/51 L 11/07/22 09:11 95/49 L 11/07/22 09:11 86 25 H 93 11/07/22 09:00 88 25 H 93 11/07/22 08:11 81 20 93 11/07/22 08:11 96/47 L 11/07/22 08:00 82 20 94 11/07/22 07:41 93/52 L 11/07/22 07:41 83 17 92 11/07/22 07:11 83 17 92 11/07/22 07:11 99/50 L 11/07/22 07:00 84 16 93 11/07/22 08:00 Room Air 11/07/22 06:11 73 22 99/54 L 94 11/07/22 06:11 99/54 L 11/07/22 05:41 80 17 99/51 L 95 11/07/22 05:11 75 13 112/53 L 93 11/07/22 04:41 76 14 103/54 L 94 11/07/22 04:11 76 18 98/55 L 94 11/07/22 03:46 76 22 101/53 L 94 11/07/22 03:41 75 16 99/49 L 93 11/07/22 03:11 77 16 91/54 L 93 11/07/22 02:41 78 15 101/55 L 93 11/07/22 02:34 85 18 97/57 L 94 11/07/22 02:11 93/50 L 11/07/22 01:41 73 12 102/51 L 93 11/07/22 01:11 77 17 101/53 L 92 11/07/22 00:41 76 24 96/50 L 08/20/23 01:30 36.5 C Lab & Micro Results (Past 24 Hours) RBC 3.91 M/uL (4.70-6.10) L 11/07/22 WBC 15.88 K/ul (4.8-10.8) H 11/07/22 Hgb 11.0 g/dl (14.0-18.0) L 11/07/22 Hct 32.3 % (42.0-52.0) L 11/07/22 MCV 82.6 fL (80.0-100.0) 11/07/22 MCH 28.1 pg (25.0-34.0) 11/07/22 MCHC 34.1 g/dL (32.0-36.0) 11/07/22 RDW Standard Deviation 67.6 fL (36.4-46.3) H 11/07/22 RDW Coefficient of Variation 24.8 % (11.5-14.5) H 11/07/22 Plt Count 170 K/uL (130-400) 11/07/22 Nucleated Red Blood Cells % (auto) 0.8 % 11/07 Nucleated RBC Absolute Count (auto) 0.13 K/uL (0-0.12) H Neutrophils (%) (Auto) 65.5 % 11/07/22 Lymphocytes (%) (Auto) 12.3 % 11/07/22 Monocytes # (Auto) 2.31 K/uL (0.11-0.59) H 11/07/22 Eosinophils # (Auto) 0.94 K/uL (0-0.50) H 11/07/22 Immature Granulocyte % (Auto) 1.0 % 11/07/22 Neutrophils # (Auto) 10.40 K/uL (1.40-6.50) H 11/07/22 Lymphocytes # (Auto) 1.95 K/uL (1.2-3.4) 11/07/22 Monocytes # (Auto) 2.31 K/uL (0.11-0.59) H 11/07/22 Eosinophils # (Auto) 0.94 K/uL (0-0.50) H 11/07/22 Basophils # (Auto) 0.12 K/uL (0-0.2) 11/07/22 Immature Granulocyte # (Auto) 0.16 K/uL (0.01-0.20) 3 Polychromasia 1+ 11/07/22 Echinocytes 2+ 11/07/22 Anisocytosis Present 11/07/22 Target Cells 1+ 11/07/22 Acanthocytes 1+ 11/07/22 Na 140 mmol/L (136-145) 11/07/22 K 4.2 mmol/L (3.5-5.1) 11/07/22 Cl 103 mmol/L (98-107) 11/07/22 CO2 18 mmol/L (21-32) L 11/07/22 Anion Gap 19 (3-11) H 11/07/22 BUN 145 mg/dl (6-23) H 11/07/22 Creatinine 5.07 mg/dl (0.6-1.4) H* 11/07/22 Estimated GFR ( Amer) 11.9 ml/min 11/07/22 Estimated GFR (Non-Af Amer) 10.3 ml/min 11/07/22 BUN/Creatinine Ratio 28.6 (10-20) H 11/07/22 Glu 173 mg/dl (70-99(Fasting)) H 11/07/22 Ca 7.5 mg/dl (8.6-10.3) L 11/07/22 Phosphorus Level 6.5 mg/dl (2.5-4.9) H 11/07/22 Total Bilirubin 6.2 mg/dl (0.2-1.0) H 11/07/22 AST 127 U/L (13-39) H 11/07/22 ALT 52 U/L (7-52) 11/07/22 Alkaline Phosphatase 199 U/L (34-104) H 11/07/22 TP 6.0 gm/dl (6.0-8.3) 11/07/22 Albumin 3.0 gm/dl (3.4-5.0) L 11/07/22 Globulin 3.0 gm/dl (2.5-4.0) 11/07/22 Albumin/Globulin Ratio 1.0 (0.9-2) 11/07/22 Mg 2.8 mg/dl (1.7-2.4) H 11/07/22 05:56 Calcium Level 7.5 mg/dl (8.6-10.3) L 11/07/22 05:56 Microbiology 11/04/22 14:19 Aerobic Blood Culture - Preliminary Blood No growth in Aerobic bottle after 48 hours. Anaerobic Blood Culture - Preliminary No growth in Anaerobic bottle after 48 hours. 11/04/22 14:19 Aerobic Blood Culture - Preliminary Blood No growth in Aerobic bottle after 48 hours. Anaerobic Blood Culture - Preliminary No growth in Anaerobic bottle after 48 hours. 11/05/22 13:17 Gram Stain - Final Pleural Fluid,Right Aerobic and Anaerobic Culture - Preliminary No growth to date. 11/05/22 13:20 Gram Stain - Final Abdomen Aerobic and Anaerobic Culture - Preliminary No growth to date. I & O Totals 24 Hours 11/06/22 11/07/22 11/08/22 06:59 06:59 06:59 Intake Total 5564.071 / 5564.071 1808.024 / 1808.024 233.493 / 233.493 Output Total 362 / 362 275 / 275 Balance 5202.071 / 5202.071 1533.024 / 1533.024 233.493 / 233.493 Cumulative 11/04/22 11:45 thru 11/07/22 08:38 Intake Total 13126.414 Output Total 1043 Balance 50022.414 RT Ventilator Mngmt (Last Documented) Ventilator Ordered Settings Respiratory Rate 17 11/07/22 11:41 Ventilator - PT Measurements Respiratory Rate 17 Coding Level of Care Code 09483 CRITICAL CARE 1ST 30-74M Diagnoses Shock R57.9 Acute renal failure N17.9 Hypoalbuminemia E88.09 Hypotension I95.9 Elevated troponin level R77.8 Diabetes E11.9 Heart failure I50.9 Afib I48.91 Renal mass of unknown nature N28.89 Liver lesion K76.9 Pleural cavity effusion J90 LORETO (obstructive sleep apnea) G47.33 Hypothyroidism E03.9 Elevated liver enzymes R74.8
[2022-11-07 07:40] LABS: Partial Thromboplastin Ratio 2.6
[2022-11-07] MEDS: ASPIRIN 81 MG ECTAB PO SCH (08:58)
[2022-11-07] MEDS: GABAPENTIN 100 MG CAP PO SCH (08:58)
[2022-11-07] MEDS: INSULIN ASPART PER UNIT CHARGE SC SCH ×2 (09:02→11:23)
[2022-11-07] MEDS: LANTUS PER UNIT CHARGE SQ SCH (09:02)
[2022-11-07] MEDS ORDERED: BUMETANIDE 4 MG in SYRINGE 0 ML IV ONE (10:00)
--- NOTE | 2022-11-07 11:01 | Nephrology Progress Note ---
Date of Service November 07, 2022 Assessment & Plan (1) Acute kidney injury: (2) Anemia: (3) UTI (urinary tract infection): (4) Liver mass: Plan 77 y o m with PMH of stage 3a CKD, b/l cr 1.4, HTN, DM, ASCVD s/p CABG, hyperlipidemia, prior L cerebellar infarct, LORETO, hypothyroidism. His baseline creatinine has been 1.4, admit to the hospital with sepsis with UTI and ANGEL after presented with generalized weakness. CT abdomen was negative for postrenal obstruction. Urinalysis showed evidence of urinary tract infection, no proteinuria. He was recently admitted from 10/10/22 - 10/17/22 at [facility] for evaluation of vertigo/orthostatic hypotension and ANGEL/CKD, cr peaked at 3.0 but improved to 1.9 at the time of discharge with IV hydration. During hospitalization he was noted to have A-fib, heart rate was controlled w/ beta luanne and amiodarone therapy. 2D echo showed left atrial appendage and cardioversion was held and started on Rivaroxaban therapy. Abdominal CT was performed to look for a potential source of infection and rising LFT's, showed 10 cm liver mass, a lesion involving the celiac axis and a questionable lesion involving one of his kidneys. CEA + suggestive of possible adenocarcinoma.He was discharged for outpatient Oncology and Urology evaluation.At home he became increasingly weak and brought to ER.In ER BP 79/52, WBC 15.6, Hgb 13.4, lactate 2.8, Cr 4.07, K 5.3, CO2 20, T. bili 5.6, AST 208, alk phos 359, albumin 2.3, procalcitonin 1.86, THS 14, troponin 102.8, BNP 694, urine microscopy w/ 1-5 hyaline casts. Overall clinically continues to decline with hypotension requiring pressor support again and further worsening of renal function with creatinine up to 5.5 and BUN 145 and oliguria. --As per Mr. Rosas's wishes family is leaning toward comfort care however they are requesting a meeting for an update and making a decision about goals of care around noon time when his and other family member will be here. Will follow Admission and Anticipated Discharge Date Admission Date: November 04, 2022 Subjective Pt was seen and discussed with his family at bedside. Blood pressure again dr cavazos yesterday afternoon and he was restarted on a pressor. Renal function rapidly worsening creatinine up to 5.5 with metabolic acidosis. Urine output has been low despite getting IV diuretics. Blood pressure remained relatively low. Overall doing poorly and Mr. Rosas expressed his wishes of not to consider dialysis and family understand that overall prognosis is guarded. Results & Data Vital Signs (Past 12 Hours) Vital Signs Temp Pulse Resp BP Pulse Ox 11/07/22 06:11 73 22 99/54 L 94 11/07/22 06:11 99/54 L 11/07/22 05:41 80 17 99/51 L 95 11/07/22 05:11 75 13 112/53 L 93 11/07/22 04:41 76 14 103/54 L 94 11/07/22 04:11 76 18 98/55 L 94 11/07/22 03:46 76 22 101/53 L 94 11/07/22 03:41 75 16 99/49 L 93 11/07/22 03:11 77 16 91/54 L 93 11/07/22 02:41 78 15 101/55 L 93 11/07/22 02:34 85 18 97/57 L 94 11/07/22 02:11 93/50 L 11/07/22 01:41 73 12 102/51 L 93 11/07/22 01:11 77 17 101/53 L 92 11/07/22 00:41 76 24 96/50 L 11/07/22 00:11 75 14 97/52 L 91 11/06/22 23:41 76 18 98/54 L 92 11/06/22 23:11 75 13 95/53 L 92 11/07/22 01:30 36.5 C 11/07/22 00:00 75 PG Care Time/CCT Total # of Minutes Spent Total Time Spent with Patient: Total time spent is greater than 50% in coordination of care (as documented) at patient's floor/unit and/or counseling patient: Coding Level of Care Code 24048 SUB INP/OBS CARE 2/35MIN Diagnoses Acute kidney injury N17.9 Anemia D64.9 UTI (urinary tract infection) N39.0 Liver mass R16.0
[2022-11-07] MEDS: HYDROmorphone INJ 0.5 MG/0.5 ML SYR IV PRN ×3 (11:24→13:23)
[2022-11-07] MEDS ORDERED: ONDANSETRON INJ 2 MG/ML 2 ML VIAL ONE (11:33)
[2022-11-07] MEDS ORDERED: ONDANSETRON INJ 2 MG/ML 2 ML VIAL IV STA (11:42)
[2022-11-07] MEDS ORDERED: ONDANSETRON 4 MG OD TAB SL PRN (12:33)
[2022-11-07] MEDS ORDERED: LORazepam 2 MG/1 ML VIAL IV PRN (12:33)
[2022-11-07] MEDS ORDERED: ONDANSETRON INJ 2 MG/ML 2 ML VIAL IV PRN (12:33)
[2022-11-07] MEDS ORDERED: LORazepam 0.5 MG TAB PO PRN (12:33)
[2022-11-07] MEDS ORDERED: HYDROmorphone BOLUS from BAG IV PRN (13:14)
[2022-11-07] MEDS ORDERED: HYDROmorphone/NSS 100 MG/100 ML BAG IV SCH (13:30)
--- NOTE | 2022-11-07 19:22 | Hospitalist Progress Note ---
Date of Service November 07, 2022 Assessment & Plan (1) Comfort measures only status: Plan: Transitioned to EMERGENCY MEDICAL TECHNICIAN BASIC on 11/08/22 for ANGEL with oliguria, not desiring dialysis in setting of likely metastatic cancer On dilaudid gtt ativan prn anxiety or nausea atropine gtts added po for excessive secretions stop all meds otherwise, stop all lab draws (2) Shock: Plan: 2/2 likely sepsis with UTI, SBP. Possibly also hypovolemic shock from dehydration with ANGEL, hypoalbuminemia from liver failure With leukocytosis, +Procal, abnl UA, elevated lactate, acidotic on abg now corrected as lactate improved Paracentesis with many WBCs, culture pending CT CHest no PNA but with effusions tapped, pleural fluid cultures pending, no pH performed, volume overload requiring levophed, IV albumin, IVFs for volume resuscitation, and was on Cefepime and Flagyl Now transitioned to EMERGENCY MEDICAL TECHNICIAN BASIC (3) Acute renal failure: Plan: Acute renal failure on CKD No in house prior records available, by report baseline creatinine is around 1.5. 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, with oliguria worsening today -appreciate Nephrology consult-cannot dialyze due to hypotension -Gave Lasix 120 mg IV x1 and still w/ oliguria -no obstruction on CT, maintain Lamar transitioned to EMERGENCY MEDICAL TECHNICIAN BASIC (4) Peritonitis: Plan: as above, no antibiotics (5) Hepatic encephalopathy: Plan: NH3 elevated in 80s, confusion/encephalopathy from this plus hypotension, shock Improving with lactulose, multiple BMs with liver mass, signs of cirrhosis on imaging, ascites with paracentesis performed (6) UTI (urinary tract infection): Plan: UA abnormal, Ur cxs-mixed catrachito, BCxs, Lamar in place dc antibiotics on EMERGENCY MEDICAL TECHNICIAN BASIC (7) Anemia: Plan: hgb dropped to 10 from 13, likely somewhat hemodilution but also some chronic disease no bleeding obvious (8) Liver lesion: Plan: Suspected Metastatic- 10cm L hepatic lobe mass, 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 With thickening of cecum on CT CA 199: Normal, CEA elevated at 12 suspicious for adenocarcinoma Last colonoscopy 5-6 years ago, no suspicious lesions at that time but was recommended 5-year follow-up (9) Hypoalbuminemia: Plan: from liver failure Received IV albumin but stopped as albumin at 3 (10) Elevated troponin level: Plan: demand ischemia, trop 116 and then repeat 102 ECHO without WMAs ECG without ischemic changes (11) Diabetes: Plan: no A1C in records available glucose here controlled (12) Afib: Plan: History of Afib On Xarelto While at [facility] the end of September patient did have a MANI from which a atrial thrombus possible/not definitively excluded. TTE was with normal EF, no report of previous MANI avaialble for review in sinus rhythm here dc heparin gtt now on EMERGENCY MEDICAL TECHNICIAN BASIC (13) LORETO (obstructive sleep apnea): Plan: no CPAP needed on EMERGENCY MEDICAL TECHNICIAN BASIC (14) Hypothyroidism: Plan: TSH here 14 continue LT4 and likely needs increased dose (15) CAD (coronary artery disease), [place] coronary artery: Plan: CAD, s/p CABG ECHO here with normal EF, no WMAs -dc atorvastatin -dc ASA -holding metoprolol for hypotension and bradycardia on admission (16) History of CVA (cerebrovascular accident): Plan: CVA History of old left cerebellar infarct with residual dizziness -ASA and atorvastatin stopped for EMERGENCY MEDICAL TECHNICIAN BASIC Plan DVT proph-heparin gtt now stopped Dispo-downgrade to med/surg for EMERGENCY MEDICAL TECHNICIAN BASIC Admission and Anticipated Discharge Date Admission Date: November 04, 2022 Subjective Pt remained oliguric overnight despite lasix 120mg x 1 and levophed. Was transitioned to comfort measures after discussions with patient with ICU attending and Nephrology. He did not want dialysis. I saw pt after transition to EMERGENCY MEDICAL TECHNICIAN BASIC and he was obtunded on a dilaudid gtt. Multiple family members at bedside. Physical Exam Constitutional: + ill appearing and + lethargic Neck: trachea midline, no thyromegaly Respiratory: normal respiratory effort; no cough Results & Data Results & Data Vital Signs (Past 12 Hours) Vital Signs Pulse Resp BP Pulse Ox O2 Del Method 11/07/22 11:41 77/43 L 11/07/22 11:41 91 H 17 90 11/07/22 11:11 93/45 L 11/07/22 11:11 87 19 94 11/07/22 11:00 86 24 94 11/07/22 10:41 106 H 20 93 11/07/22 10:41 91/58 L 11/07/22 10:11 98/60 L 11/07/22 10:11 83 25 H 11/07/22 10:00 84 25 H 93 11/07/22 09:41 85 17 92 11/07/22 09:41 107/51 L 11/07/22 09:11 95/49 L 11/07/22 09:11 86 25 H 93 11/07/22 09:00 88 25 H 93 11/07/22 08:11 81 20 93 11/07/22 08:11 96/47 L 11/07/22 08:00 82 20 94 11/07/22 07:41 93/52 L 11/07/22 07:41 83 17 92 11/07/22 08:00 Room Air Laboratory Results CBC, CMP, Mag, phos, BCxs, pleeural fluid cx, ascites cx reviewed PG Care Time/CCT Total # of Minutes Spent Total Time Spent with Patient: Total time spent is greater than 50% in coordination of care (as documented) at patient's floor/unit and/or counseling patient: Coding Level of Care Code 64107 SUB INP/OBS CARE 04/14MIN Diagnoses Comfort measures only status Z51.5 Shock R57.9 Acute renal failure N17.9 Peritonitis K65.9 Hepatic encephalopathy K76.82 UTI (urinary tract infection) N39.0 Anemia D64.9 Liver lesion K76.9 Hypoalbuminemia E88.09 Elevated troponin level R77.8 Diabetes E11.9 Afib I48.91 LORETO (obstructive sleep apnea) G47.33 Hypothyroidism E03.9 CAD (coronary artery disease), [place] coronary artery I25.10 History of CVA (cerebrovascular accident) Z86.73
[2022-11-07] MEDS ORDERED: ATROPINE SULFATE 1% OP SOLN 5 ML BTL PO PRN (19:47)
--- NOTE | 2022-11-08 11:33 | Discharge Summary ---
Date of Service November 08, 2022 Admission HPI Per Admitting Provider Bill Rosas is a 77-year-old male with a past medical history of CHF with reported reduced ejection fraction although recent normal echo, hypertension, DM 2, CKD with recent admission in [facility] for renal failure requiring dialysis and subsequent return of creatinine to baseline of around 1.5 who read presents as a walk-in from the ER with general weakness, poor oral intake, lower extremity edema and fatigue following discharge from [facility] 10 days ago for renal failure with A-fib/RVR and atrial thrombus. Normal BP 'lower of late. Thats why he ended up at [facility] 75cc output in last 3-3.5 hours Denies history of bradycardia. Reports history of SC 7 years quad bipass in [facility]. No stents. Has peed a bit intermittently, not sure if its more, less, or about the same as normal. No fevers/chills. No burning with urination Pain in lower back which has been present for7 years unchanged 'straight down the middle.' No numbness or tingling in the arms or legs No bloody or black BMs Last colo 5 years ago, had to cancel was actually due to reschedule this year in [facility]. No fhx of colorectal cancer. 'No sign of cancer in anyone in the family as far as I know.' Denies OTC NSAID use, is on aspirin 81mg daily No fevers, chills. Did not take insulin this morning Took meds this morning including amlodipine and metoprolol. +swelling in the legs Furosemide held Swelling last 2 days is worse than normal Did start taking lasix once he returned home Medical History: Reviewed Medications: Reviewed Surgical History: Reviewed Family history: Reviewed Allergies: Reviewed Social History: Remote history of tobacco use 30 years, denies alochol. Code Status: DNR/DNI Outside Rec review: PCP note 10/25/2022 reviewed from [facility]. Of note: Eliquis 5 mg twice daily switch to Xarelto 15 mg twice daily Patient was on clonidine, glipizide, losartan and these were stopped Continued on Norvasc 10 mg, aspirin 81 mg, gabapentin 300 mg, NovoLog, Basaglar 20 units, Lopressor 100 mg, Lipitor 40 mg, metformin 5 mg, and Synthroid 25 mg At that patient patient wanted urgent referrals to GI for liver biopsy and colonoscopy, urology referral for kidney biopsy, and oncology referral to cancer follow-up. [facility] Type II DM: Continued on Basaglar 20 units a.m., NovoLog sliding scale 1: 25 Hypothyroid: Synthroid 25 continued Hyperlipidemia, atorvastatin 40 mg continued Lasix 40-80 mg based on swelling continued, proBNP 8888 at that time Cirrhosis unspecified: AST 163/ALT 80. Pending GI follow-up AST greater than 2 times ALT,? Alcohol intake. Hep B/hep C pending. Ferritin 1164 at the time nephrology note 10/12/2022 for acute renal failure Suspected prerenal from volume depletion from poor oral intake and overdiuresis during hospitalization No evidence of obstructive uropathy at that time. Urine with 1+ protein with history of diabetes Renal function did improve with IV fluid hydration Lasix was recommended to be held at that time Losartan was held at that time Principal Diagnosis Septic shock, acute on chronic kidney disease, urinary tract infection, metastatic cancer to liver Discharge Exam Not applicable. The patient Discharge Data Allergies Allergy/AdvReac Type Severity Reaction Status Date / Time No Known Allergies Allergy Verified 11/01/22 14:16 Consultations 11/04/22 14:41 ED Decision to Admit Stat 11/04/22 17:49 Consult Nephrology Routine 11/04/22 19:23 Consult Mine Deputy Routine 11/04/22 20:23 Consult Nephrology Routine 11/04/22 21:53 Consult Gastroenterology Routine 11/07/22 19:47 [facility] supervisor Routine Ordered Studies 11/04/22 12:53 CT abd pelvis wo con Stat CT chest diagnostic wo con Stat 11/04/22 12:54 CT head/brain wo con Stat 11/05/22 12:30 US point of care ultrasound Routine Hospital Course (1) Comfort measures only status: Transitioned to TELEX OPERATOR on 11/08/22 for ANGEL with oliguria, not desiring dialysis in setting of likely metastatic cancer On dilaudid gtt ativan prn anxiety or nausea atropine gtts added po for excessive secretions stop all meds otherwise, stop all lab draws (2) Shock: 2/2 likely sepsis with UTI, SBP. Possibly also hypovolemic shock from dehydration with ANGEL, hypoalbuminemia from liver failure With leukocytosis, +Procal, abnl UA, elevated lactate, acidotic on abg now corrected as lactate improved Paracentesis with many WBCs, culture pending CT CHest no PNA but with effusions tapped, pleural fluid cultures pending, no pH performed, volume overload requiring levophed, IV albumin, IVFs for volume resuscitation, and was on Cefepime and Flagyl Now transitioned to TELEX OPERATOR (3) Acute renal failure: Acute renal failure on CKD No in house prior records available, by report baseline creatinine is around 1.5. Was discharged from [place] after 10-day admission for renal failure with peak creatinine of 3 Patient reports he did restart his Lasix and losartan following that discharge timber hand up to 5, with oliguria worsening today -appreciate Nephrology consult-cannot dialyze due to hypotension -Gave Lasix 120 mg IV x1 and still w/ oliguria -no obstruction on CT, maintain Lamar transitioned to TELEX OPERATOR (4) Peritonitis: as above, no antibiotics (5) Hepatic encephalopathy: NH3 elevated in 80s, confusion/encephalopathy from this plus hypotension, shock Improving with lactulose, multiple BMs with liver mass, signs of cirrhosis on imaging, ascites with paracentesis performed (6) UTI (urinary tract infection): UA abnormal, Ur cxs-mixed catrachito, BCxs, Lamar in place dc antibiotics on TELEX OPERATOR (7) Anemia: hgb dropped to 10 from 13, likely somewhat hemodilution but also some chronic disease no bleeding obvious (8) Liver lesion: Suspected Metastatic- 10cm L hepatic lobe mass, 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 With thickening of cecum on CT CA 199: Normal, CEA elevated at 12 suspicious for adenocarcinoma Last colonoscopy 5-6 years ago, no suspicious lesions at that time but was recommended 5-year follow-up (9) Hypoalbuminemia: from liver failure Received IV albumin but stopped as albumin at 3 (10) Elevated troponin level: demand ischemia, trop 116 and then repeat 102 ECHO without WMAs ECG without ischemic changes (11) Diabetes: no A1C in records available glucose here controlled (12) Afib: History of Afib On Xarelto While at [facility] the end of September patient did have a MANI from which a atrial thrombus possible/not definitively excluded. TTE was with normal EF, no report of previous MANI avaialble for review in sinus rhythm here dc heparin gtt now on TELEX OPERATOR (13) LORETO (obstructive sleep apnea): no CPAP needed on TELEX OPERATOR (14) Hypothyroidism: TSH here 14 continue LT4 and likely needs increased dose (15) CAD (coronary artery disease), [place] coronary artery: CAD, s/p CABG ECHO here with normal EF, no WMAs -dc atorvastatin -dc ASA -holding metoprolol for hypotension and bradycardia on admission (16) History of CVA (cerebrovascular accident): CVA History of old left cerebellar infarct with residual dizziness -ASA and atorvastatin stopped for TELEX OPERATOR Plan DVT proph-heparin gtt now stopped Dispo-the patient peacefully at 0705 on November 08 with family in attendance Total Time Total Time Spent Total Time Spent (In Minutes): 35 minutes Discharge Plan Discharge Items Patient Disposition: Other Date/Time: 11/08/22 07:05 Coding Level of Care Code 63470 IN/OBS DISCH 30 MIN/LESS Diagnoses Comfort measures only status Z51.5 Shock R57.9 Acute renal failure N17.9 Peritonitis K65.9 Hepatic encephalopathy K76.82 UTI (urinary tract infection) N39.0 Anemia D64.9 Liver lesion K76.9 Hypoalbuminemia E88.09 Elevated troponin level R77.8 Diabetes E11.9 Afib I48.91 LORETO (obstructive sleep apnea) G47.33 Hypothyroidism E03.9 CAD (coronary artery disease), [place] coronary artery I25.10 History of CVA (cerebrovascular accident) Z86.73
[2022-11-09 16:41] LABS: Babesia microti DNA Not Detected (Not Detected)
== END 2022-11-08 09:45 | disposition expired | DRG 871 ==
LOC: ED 11:45 → 1E 17:45 → SUATTDRO 17:45 → 1E 19:54 → 3W 11-07 20:16